=== PATIENT | male | born 1935 | race Caucasian/White ===

== ENCOUNTER → 2020-08-17 11:27 | Outpatient (BNVA) | payer MEDICARE, SELFPAY | PROVIDERS: PCP Internal Medicine; Referring Provider Internal Medicine; Visit Provider Surgery Vascular Surgery | DX: Z48.812 Encounter for surgical aftercare following surgery on the circulatory system (principal); Z98.62 Peripheral vascular angioplasty status | CPT/HCPCS: 99213 ==

== ENCOUNTER → 2020-08-28 10:02 | Outpatient (BNVA) | payer MEDICARE, SELFPAY | PROVIDERS: PCP Internal Medicine; Referring Provider Internal Medicine; Visit Provider Hospitalist | DX: J41.0 Simple chronic bronchitis (principal); F51.01 Primary insomnia; J96.11 Chronic respiratory failure with hypoxia; Z87.891 Personal history of nicotine dependence; Z79.82 Long term (current) use of aspirin; Z79.51 Long term (current) use of inhaled steroids | CPT/HCPCS: 99214 ==

== ENCOUNTER 2020-11-22 12:01 | Outpatient (REF) | payer MEDICARE, SELFPAY ==
--- NOTE | 2020-11-22 12:05 | US_ITS ---
EXAMINATION: NONINVASIVE ASSESSMENT OF THE ARTERIES OF BOTH LOWER EXTREMITIES INCLUDING PVR EXAM AND BILATERAL LOWER EXTREMITY DUPLEX CLINICAL INFORMATION: Peripheral vascular disease unspecified COMPARISON: Prior noninvasive assessment 07/18/2020 TECHNIQUE: Ankle pulse volume recordings, ankle pressure measurements and ankle brachial indices were obtained of the lower extremity arterial system bilaterally in addition to duplex Doppler techniques with wave form analysis and measurement of velocities in the common femoral, profunda femoral, superficial femoral, popliteal, tibial and peroneal arteries. The study was performed only at rest. FINDINGS: RIGHT LEG 1. Right Ankle-Brachial Index: 1.86 >0.97-1.25 = normal - no significant arterial disease 0.75-0.96 = mild peripheral arterial disease 0.5-0.74 = moderate peripheral arterial disease <0.50 = severe peripheral arterial disease <0.30 = critical arterial disease 2. Segmental Pressures (mmHg): Ankle: PT 205, DP 205 3. PVR Waveforms: Ankle: Somewhat dampened, loss of dicrotic notch, similar to prior. 4. Direct Duplex: Common femoral artery: 138 cm/s, triphasic Profunda femoris artery: 217 cm/s, triphasic Superficial femoral artery (proximal): 122 cm/s, biphasic Superficial femoral artery (mid): 133 cm/s, Multiphasic Superficial femoral artery (distal): 173 cm/s, monophasic Proximal Popliteal artery: 121 cm/s, monophasic Distal popliteal artery: 98.5 cm/s, monophasic Mid posterior tibial artery: 105 cm/s, monophasic Peroneal artery: 42.6 cm/s, monophasic LEFT LE. Left Ankle-Brachial Index: 1.05 (higher of the DP/PT) >0.97-1.25 = normal - no significant arterial disease 0.75-0.96 = mild peripheral arterial disease 0.5-0.74 = moderate peripheral arterial disease <0.50 = severe peripheral arterial disease <0.30 = critical arterial disease 2. Segmental Pressures: Ankle: PT 116, DP 91 3. PVR Waveforms: Ankle: Similar to prior there is loss of dicrotic notch. 4. Direct Duplex: Common femoral artery: 67 cm/s, monophasic with spectral broadening Profunda femoris artery: 34 cm/s, monophasic Superficial femoral artery (proximal): 194 cm/s, monophasic Superficial femoral artery (mid): 147 cm/s, monophasic Superficial femoral artery (distal): 104 cm/s, monophasic Proximal Popliteal artery: 93.2 cm/s, monophasic Distal popliteal artery: 69.1 cm/s, biphasic Mid posterior tibial artery: 30.2 cm/s, monophasic Peroneal artery: 57 cm/s, monophasic US/US arterial duplex LE BI IMPRESSION: Right ALINA 1.86, Left ALINA 1.05. These may be artificially elevated secondary to vessel wall calcification. PVRs are dampened bilaterally with loss of dicrotic notch. Multifocal areas of calcific disease are again seen bilaterally with loss of multiphasic flow on the right below the level of the distal superficial femoral artery and on the left essentially throughout the entirety of the leg. There is at least a moderate stenosis at the proximal superficial femoral artery given velocity shift
== END 2020-11-22 12:02 | disposition home or self-care (01) ==
LOC: HO.US 12:01
PROVIDERS: Visit Provider Surgery Vascular Surgery
DX: I73.9 Peripheral vascular disease, unspecified (principal)
CPT/HCPCS: 93923; 93925

== ENCOUNTER → 2020-12-28 11:04 | Outpatient (BNVA) | payer MEDICARE, SELFPAY | PROVIDERS: PCP Internal Medicine; Visit Provider Surgery Vascular Surgery | DX: I73.9 Peripheral vascular disease, unspecified (principal) | CPT/HCPCS: 99212 ==

== ENCOUNTER → 2021-03-08 15:19 | Outpatient (BNVA) | payer MEDICARE, SELFPAY | PROVIDERS: PCP Internal Medicine; Visit Provider Hospitalist | DX: J96.11 Chronic respiratory failure with hypoxia (principal); J41.0 Simple chronic bronchitis | CPT/HCPCS: 99212 ==

== ENCOUNTER 2021-06-11 12:42 | Outpatient (REF) | payer MEDICARE, SELFPAY ==
--- NOTE | ~2021-06-11 | US_ITS ---
EXAMINATION: COLOR-FLOW DUPLEX IMAGING OF THE BILATERAL LOWER EXTREMITY ARTERIAL SYSTEM. VELOCITY MEASUREMENTS THROUGHOUT THE FEMORAL ARTERIES WITH ANKLE-BRACHIAL PERIPHERAL ARTERIAL TESTING. CLINICAL INFORMATION: This is an 85-year-old male with a history of smoking, previous vascular surgery, peripheral vascular disease. Comparison: Comparison is made to a previous study dated 11/22/2020. TECHNIQUE: Ankle pulse volume recordings, ankle pressure measurements and ankle brachial indices were obtained of the lower extremity arterial system bilaterally in addition to duplex Doppler techniques with wave form analysis and measurement of velocities in the common femoral, profunda femoral, superficial femoral, popliteal, tibial and peroneal arteries. The study was performed only at rest. FINDINGS: RIGHT LEG 1. Right Ankle-Brachial Index: 1.31. Previously, 1.86 >0.97-1.25 = normal - no significant arterial disease 0.75-0.96 = mild peripheral arterial disease 0.5-0.74 = moderate peripheral arterial disease <0.50 = severe peripheral arterial disease <0.30 = critical arterial disease 2. Segmental Pressures (mmHg): Ankle: PT 205, DP 204 3. PVR Waveforms: Ankle: Somewhat dampened, loss of dicrotic notch, similar to prior. 4. Direct Duplex: Common femoral artery: 130 cm/s, biphasic. Previously, triphasic Profunda femoris artery: 106 cm/s, biphasic. Previously, triphasic Superficial femoral artery (proximal): 104 cm/s, biphasic. Unchanged Superficial femoral artery (mid): 127 cm/s, biphasic. Unchanged Superficial femoral artery (distal): 208 cm/s, biphasic. The patient may be developing a stenosis in the distal superficial femoral artery. Proximal Popliteal artery: 182 cm/s, triphasic Mid posterior tibial artery: 117 cm/s, biphasic LEFT LE. Left Ankle-Brachial Index: 0.96. Previously, 1.05 (higher of the DP/PT) >0.97-1.25 = normal - no significant arterial disease 0.75-0.96 = mild peripheral arterial disease 0.5-0.74 = moderate peripheral arterial disease <0.50 = severe peripheral arterial disease <0.30 = critical arterial disease 2. Segmental Pressures: Ankle: PT 150, DP 145 3. PVR Waveforms: Ankle: Similar to prior there is loss of dicrotic notch. 4. Direct Duplex: Common femoral artery: 168 cm/s, biphasic. Previously monophasic Profunda femoris artery: 173 cm/s, biphasic. Previously monophasic Superficial femoral artery (proximal): 109 cm/s, biphasic. Previously monophasic Superficial femoral artery (mid): 199 cm/s, biphasic. Previously monophasic Superficial femoral artery (distal): 82 cm/s, biphasic. Previously monophasic Proximal Popliteal artery: 110 cm/s, biphasic. Previously monophasic Mid posterior tibial artery: 82 cm/s, biphasic. Previously monophasic US/US arterial duplex LE BI IMPRESSION: 1. The ankle-brachial indices remain within the normal limits measuring 1.31 on the right and 0.96 the left. Previously, they measured Right ALINA 1.86, Left ALINA 1.05. These may be artificially elevated secondary to vessel wall calcification. 2. PVRs are dampened bilaterally with loss of dicrotic notch. 3. Multifocal areas of calcific disease are again seen bilaterally with loss of multiphasic flow on the both sides at the level of the distal superficial femoral artery.
--- NOTE | ~2021-06-11 | US_ITS ---
EXAMINATION: US RETROPERITONEAL LIMITED (AORTA) CLINICAL INFORMATION: Peripheral vascular disease. COMPARISON: None TECHNIQUE: Barros-scale, color Doppler and spectral Doppler evaluation of the abdominal aorta. FINDINGS: There is scattered atherosclerotic plaque without abdominal aortic aneurysm. The measurements of the aorta in maximum AP and transverse dimensions respectively are as follows: Proximal: 2.5 x 2.5 cm. Mid: 2.0 x 2.0 cm. Distal: 2.3 x 2.7 cm. PSV: 43.4 cm/sec The measurements of the common iliac arteries in maximum dimensions are as follows: Right: AP: 1.2 cm. TRV: 1.5 cm. Left: AP: 1.3 cm. TRV: 1.3 cm. US/US abdominal aortic aneurysm IMPRESSION: There is scattered atherosclerotic plaque without abdominal aortic aneurysm.
== END 2021-06-11 12:43 | disposition home or self-care (01) ==
LOC: HO.US 12:42
PROVIDERS: PCP Internal Medicine; Visit Provider Surgery Vascular Surgery
DX: I70.213 Atherosclerosis of native arteries of extremities with intermittent claudication, bilateral legs (principal)
CPT/HCPCS: 76706; 93923; 93925

== ENCOUNTER → 2021-06-26 10:45 | Outpatient (BNVA) | payer MEDICARE, SELFPAY | PROVIDERS: PCP Internal Medicine; Visit Provider Surgery Vascular Surgery | DX: I73.9 Peripheral vascular disease, unspecified (principal) | CPT/HCPCS: 99212 ==

== ENCOUNTER → 2021-09-07 15:36 | Outpatient (BNVA) | payer MEDICARE, OTHER, SELFPAY | PROVIDERS: PCP Internal Medicine; Visit Provider Hospitalist | DX: J96.11 Chronic respiratory failure with hypoxia (principal); J41.0 Simple chronic bronchitis | CPT/HCPCS: 99212 ==

== ENCOUNTER → 2022-12-06 13:49 | Outpatient (BNVA) | payer MEDICARE, SELFPAY | PROVIDERS: PCP Internal Medicine; Visit Provider Hospitalist | DX: J41.0 Simple chronic bronchitis (principal); J96.11 Chronic respiratory failure with hypoxia; Z79.899 Other long term (current) drug therapy | CPT/HCPCS: 99212 ==

== ENCOUNTER → 2023-01-30 15:24 | Outpatient (BNVA) | payer MEDICARE, SELFPAY | PROVIDERS: PCP Internal Medicine; Visit Provider Hospitalist | DX: J18.0 Bronchopneumonia, unspecified organism (principal); J96.11 Chronic respiratory failure with hypoxia; J44.1 Chronic obstructive pulmonary disease with (acute) exacerbation; G47.00 Insomnia, unspecified; Z87.891 Personal history of nicotine dependence; Z95.0 Presence of cardiac pacemaker; Z99.81 Dependence on supplemental oxygen; Z79.899 Other long term (current) drug therapy | CPT/HCPCS: 99212 ==

== ENCOUNTER 2023-02-11 09:00 | Outpatient (REF) | payer MEDICARE, SELFPAY ==
--- NOTE | ~2023-02-11 | XR_ITS ---
EXAMINATION: XR CHEST CLINICAL INFORMATION: Cough, bronchopneumonia COMPARISON: 05/26/2020 TECHNIQUE: 2 views of the chest were obtained. FINDINGS: Heart is normal in size. Status post aortic valve replacement. A left subclavian dual-lead pacemaker is in good position. No acute vascular congestion. Chronic linear areas of scarring and atelectasis seen in the right midlung field and left lung base. Calcified nodule is seen in the right lung apex. No focal airspace consolidations. XR/XR chest 2V IMPRESSION: Chronic fibrotic lung disease. No focal airspace consolidations
== END 2023-02-11 09:01 | disposition home or self-care (01) ==
LOC: HO.XRAY 09:00
PROVIDERS: PCP Internal Medicine; Visit Provider Hospitalist
DX: J96.11 Chronic respiratory failure with hypoxia (principal); J44.1 Chronic obstructive pulmonary disease with (acute) exacerbation; J18.0 Bronchopneumonia, unspecified organism
CPT/HCPCS: 71046; 99212

== ENCOUNTER 2023-05-20 13:49 | Outpatient (AMB) | payer MEDICARE, SELFPAY ==
[2023-05-20 13:55] VITALS: BP 140/64; PULSE 69; O2SAT 97; BMI 25.8
--- NOTE | 2023-05-20 13:55 | A.OFFVIS_ITS ---
Intake Vital Signs 05/20/23 13:55 Height 5 ft 7 in Weight 165 lb BMI 25.8 BP 140/64 H Blood Pressure Location Lt brachial Position Standing Pulse 69 Pulse Source Pulse Oximeter Pulse Oximetry (%) 97 Oxygen Delivery Method Room Air Intake Visit Reasons: COPD Intake Note: pt is here for follow up and states he feels okay today Allergies No Known Allergies Allergy (Verified 05/20/23 14:00) HPI HPI Comments History of Present Illness Details The patient is a 87-year-old gentleman known COPD in addition to pulmonary nodules. He did have a pacemaker placed in apparently has been doing well from the standpoint. He still has and chest discomfort due to that but ultimately was seen by Cardiology in feels like everything is going okay. He does complaint of progressive dyspnea on exertion. His daughter is with him and she is very concerned that his having more shortness of breath specially when going up a flight of stairs. He has been using the Breo in addition to the Spi elizabeth and does have a rescue inhaler. He did go for 6 minutes walk test and he did desaturate down to about 91/92%, but, not meeting criteria for oxygen supplementation. He does have some crackles on examination. Also to state that prior to this visit he was treated with prednisone and antibiotics for an ongoing lower respiratory infection. Currently he has completed the prednisone in the antibiotics. I did review the overnight oximetry demonstrating that he desaturated down to 75% and spent more than 40 minutes below 88%. Therefore, he needs to use the oxygen at nighttime. He has been tolerating it okay however he is having hard time sleeping. I will provide him with sleep aid at this time. He is also informed about nighttime recommendations by not eating too late, shutting off lights. In the meantime he has been using his nebulizer twice a day and continues uses respiratory therapy. No further wheezing on examination. 12/06/2022 the patient is here for a pulmonary follow-up visit. The patient continues to do relatively well. He is using his respiratory therapy with good effect. [facility] In addition to that the patient has been using the oxygen at nighttime. He does get some nasal irritation from the oxygen. He is going to try some saline gel to see if he can provide some relief. In addition to that he is noticing increasing drainage during the daytime. He does not have a history of glaucoma so therefore he can try as needed ipratropium nasal spray to try to dry some although secretions up. The patient does benefit from her oxygen therapy at nighttime so therefore will continue it at this time. She continues using the trazodone for sleep with good effect. Will follow-up in a year's time. 01/30/2023 the patient is here for sick visit. The patient started developing worsening cough. Chest congestion. Artemus some gargling in his left lung. Denies fevers or chills. The mucus is thick white. Denies any blood or any discoloration. Denies any needs any chest discomfort. Denies any fevers and denies any sick contacts. The patient is wondering because he has been sick now for the 2nd time in a short period time. Will go ahead and treat him for COPD exacerbation due to a respiratory illness. The patient definitely has some rhonchi and wheezing. Also will undergo a chest x-ray. If the patient continues to be symptomatic will go ahead and request a CT scan of the chest to further address for any postobstructive processes. Also we can assess the blood work. The patient will call if she is no better. Otherwise will follow-up in 3-4 months. 02/11/2023 the patient is here for sick visit. He continues to have a productive cough. He did undergo a chest x-ray demonstrating some minimal linear opacities in the area of the left lower lobe. He has some crackles in that area as well. He was placed on Vantin went up without doxycycline. Seems to be tolerating the therapy. Unfortunately after several days patient still coughing and having chest congestion. His daughter called the office about his persistent symptoms. Therefore, the patient came in for a visit. He did have a chest x-ray and I personally reviewed the x-ray and also compared to the x-ray that he had at [facility]. Appears that the linear opacities in the left lower lobe have improved which is reassuring. He still has some crackles in the left base. Therefore, due to the chest congestion and the partial response to antibiotics will give another course of antibiotics this time with Levaquin. He also will take Mucinex. I did recommend that he can take some probiotics to minimize GI adverse effects. If the patient is no better then at that point will request a CT scan of the chest to better apprecia te that area. 05/20/2023 the patient is here for a pulmonary follow-up visit. The patient completed 3rd course of antibiotics with Levaquin he has been feeling better. We did repairs his x-ray demonstrating interstitial changes no obvious pneumonia. The patient's cough is improved. Continues to have some shortness of breath with activity mild severity. Also, a cough intermittently. Otherwise he feels his baseline. He is using his respiratory therapy. The patient is without any other complaints. [facility] Medical History (Updated 05/21/23 @ 08:19 by Glynn Olson MD) Bronchopneumonia Chronic respiratory failure with hypoxia COPD (chronic obstructive pulmonary disease) Insomnia Surgical History External hemorrhoid Pacemaker S/P angiogram of extremity (~07/2020) Family History Father No problems noted. Mother No problems noted. Social History (Updated 09/07/21 @ 15:46 by ALEC Shah) Patient Tobacco Use Status: Former Tobacco user Tobacco use type: Cigarette Years Smoked: 20 years Review of Systems Const Denies fever(s) and Denies night sweats ENT Reports Normal hearing present, Denies change in voice, Denies lip swelling, Denies mouth pain, Reports nasal congestion, Reports nasal discharge and Denies tongue swelling Card Denies chest pain and Reports dyspnea on exertion Resp Denies chest congestion, Reports cough, Reports dyspnea on exertion and Denies wheezing GI Denies abdominal pain Musc Denies no additional complaints Neuro Reports Normal hearing present and Denies Neuro-related abnormal movements Psych Denies no additional complaints Sudheer/Lymph Denies easy bleeding and Denies lymphadenopathy Aller/Immun Denies lip swelling, Denies tongue swelling and Denies wheezing Physical Exam Vital Signs: Last Vital Signs Pulse 69 05/20/23 13:55 BP 140/64 H 05/20/23 13:55 Pulse Ox 97 05/20/23 13:55 Oxygen Delivery Method Room Air 05/20/23 13:55 BMI result Body Mass Index 25.8 Const General: alert Neck Neck: Yes normal visual inspection, Yes full ROM and Yes no lymphadenopathy Chest Chest palpation & inspection: normal inspection of the chest Resp Auscultation: no crackles, no rhonchi, no wheezes and diminished lung sounds Cardio Rate: regular rate Rhythm: regular rhythm Heart sounds: S1 normal heart sound present and S2 normal heart sound present GI Palpation (GI): Soft to palpation and nontender Auscultation: normal bowel sounds Skin General skin exam: rashes and/or lesions noted Neuro Cranial nerves: Yes Normal hearing present Assessment & Plan Assessment & Plan (1) Chronic respiratory failure with hypoxia: Code(s): J96.11 - Chronic respiratory failure with hypoxia (2) COPD (chronic obstructive pulmonary disease): Code(s): J44.9 - Chronic obstructive pulmonary disease, unspecified Qualifiers: COPD type: COPD with acute exacerbation Qualified Code(s): J44.1 - Chronic obstructive pulmonary disease with (acute) exacerbation (3) Bronchopneumonia: Comment: resolved Code(s): J18.0 - Bronchopneumonia, unspecified organism Plan Continue nocturnal oxygen. [facility] help with nasal irritation Ipratopium nasal spray as needed Continue Breo 100 Continue Spiriva Duoneb as needed Trazadone for sleep F/U in 6-8 months Coding Level of Care Code Est Pt Level 4 (69366) Diagnoses Chronic respiratory failure with hypoxia J96.11 COPD (chronic obstructive pulmonary disease) J44.1 COPD type: COPD with acute exacerbation Bronchopneumonia J18.0 Time Spent (min) 18
== END 2023-05-20 14:09 | disposition home or self-care (01) ==
PROVIDERS: PCP Internal Medicine; Visit Provider Hospitalist
DX: J96.11 Chronic respiratory failure with hypoxia (principal); J44.1 Chronic obstructive pulmonary disease with (acute) exacerbation; J18.0 Bronchopneumonia, unspecified organism
CPT/HCPCS: 99214

== ENCOUNTER → 2023-05-20 13:49 | Outpatient (BNVA) | payer MEDICARE, SELFPAY | PROVIDERS: Visit Provider Hospitalist | DX: J96.11 Chronic respiratory failure with hypoxia (principal); J44.1 Chronic obstructive pulmonary disease with (acute) exacerbation; J18.0 Bronchopneumonia, unspecified organism | CPT/HCPCS: 99212 ==

== ENCOUNTER 2024-04-09 10:48 | Outpatient (AMB) | payer MEDICARE, SELFPAY ==
[2024-04-09 10:53] VITALS: BP 134/68; PULSE 73; O2SAT 96; BMI 25.8
--- NOTE | 2024-04-09 10:53 | A.OFFVIS_ITS ---
Vital Signs 04/09/24 10:53 Height 5 ft 7 in Weight 165 lb BMI 25.8 BP 134/68 Blood Pressure Location Lt brachial Position Sitting Pulse 73 Pulse Source Pulse Oximeter Pulse Oximetry (%) 96 Oxygen Delivery Method Room Air Intake Visit Reasons: COPD Die Cutter Required: No Allergies No Known Allergies Allergy (Verified 04/09/24 10:56) HPI Comments Details: The patient is a 88-year-old gentleman known COPD in addition to pulmonary nodules. He did have a pacemaker placed in apparently has been doing well from the standpoint. He still has and chest discomfort due to that but ultimately was seen by Cardiology in feels like everything is going okay. He does complaint of progressive dyspnea on exertion. His daughter is with him and she is very concerned that his having more shortness of breath specially when going up a flight of stairs. He has been using the Breo in addition to the Spiriva and does have a rescue inhaler. He did go for 6 minutes walk test and he did desaturate down to about 91/92%, but, not meeting criteria for oxygen supplementation. He does have some crackles on examination. Also to state that prior to this visit he was treated with prednisone and antibiotics for an ongoing lower respiratory infection. Currently he has completed the prednisone in the antibiotics. I did review the overnight oximetry demonstrating that he desaturated down to 75% and spent more than 40 minutes below 88%. Therefore, he needs to use the oxygen at nighttime. He has been tolerating it okay however he is having hard time sleeping. I will provide him with sleep aid at this time. He is also informed about nighttime recommendations by not eating too late, shutting off lights. In the meantime he has been using his nebulizer twice a day and continues uses respiratory therapy. No further wheezing on examination. 12/06/2022 the patient is here for a pulmonary follow-up visit. The patient continues to do relatively well. He is using his respiratory therapy with good effect. [facility] In addition to that the patient has been using the oxygen at nighttime. He does get some nasal irritation from the oxygen. He is going to try some saline gel to see if he can provide some relief. In addition to that he is noticing increasing drainage during the daytime. He does not have a history of glaucoma so therefore he can try as needed ipratropium nasal spray to try to dry some although secretions up. The patient does benefit from her oxygen therapy at nighttime so therefore will continue it at this time. She continues using the trazodone for sleep with good effect. Will follow-up in a year's time. 01/30/2023 the patient is here for sick visit. The patient started developing worsening cough. Chest congestion. [place] some gargling in his left lung. Denies fevers or chills. The mucus is thick white. Denies any blood or any discoloration. Denies any needs any chest discomfort. Denies any fevers and denies any sick contacts. The patient is wondering because he has been sick now for the 2nd time in a short period time. Will go ahead and treat him for COPD exacerbation due to a respiratory illness. The patient definitely has some rhonchi and wheezing. Also will undergo a chest x-ray. If the patient continues to be symptomatic will go ahead and request a CT scan of the chest to further address for any postobstructive processes. Also we can assess the blood work. The patient will call if she is no better. Otherwise will follow-up in 3-4 months. 02/11/2023 the patient is here for sick visit. He continues to have a productive cough. He did undergo a chest x-ray demonstrating some minimal linear opacities in the area of the left lower lobe. He has some crackles in that area as well. He was placed on Vantin went up without doxycycline. Seems to be tolerating the therapy. Unfortunately after several days patient still coughing and having chest congestion. His daughter called the office about his persistent symptoms. Therefore, the patient came in for a visit. He did have a chest x-ray and I personally reviewed the x-ray and also compared to the x-ray that he had at [facility]. Appears that the linear opacities in the left lower lobe have improved which is reassuring. He still has some crackles in the left base. Therefore, due to the chest congestion and the partial response to antibiotics will give another course of antibiotics this time with Levaquin. He also will take Mucinex. I did recommend that he can take some probiotics to minimize GI adverse effects. If the patient is no better then at that point will request a CT scan of the chest to better appreciate that area. 05/20/2023 the patient is here for a pulmonary follow-up visit. The patient completed 3rd course of antibiotics with Levaquin he has been feeling better. We did repairs his x-ray demonstrating interstitial changes no obvious pneumonia. The patient's cough is improved. Continues to have some shortness of breath with activity mild severity. Also, a cough intermittently. Otherwise he feels his baseline. He is using his respiratory therapy. The patient is without any other complaints. 04/09/2024 the patient is here for a pulmonary follow-up visit. Overall the mckenzie vogt has been doing better from a respiratory status. Denies any worsening of the shortness of breath. He does complain of significant allergies. Significant sinus congestion and cough. Postnasal drip. Moderate severity. He did take some Benadryl some Mucinex with good response. Will go ahead 7 Zyrtec to the [place] and also been from intranasal corticosteroid therapy. He continues on his inhalers with good response and he also goes to the [place] for that. His last x-ray demonstrated new acute disease except for his chronic interstitial changes. Since the patient is doing well no additional testing is warranted. If symptoms worsen for some reason he can always call and we can address those symptoms and consider further imaging at that point. P is using the oxygen at nighttime. The oxygen therapy has been affecting beneficial. He can try some water-based lubricant for his knows to avoid too much irritation. [facility] Medical History (Updated 04/11/24 @ 21:23 by Glynn Olson MD) Chronic rhinitis Bronchopneumonia Chronic respiratory failure with hypoxia COPD (chronic obstructive pulmonary disease) Insomnia Surgical History S/P angiogram of extremity (~07/2020) External hemorrhoid Pacemaker Family History Father No problems noted. Mother No problems noted. Social History (Updated 09/07/21 @ 15:46 by ALEC Shah) Patient Tobacco Use Status: Former Tobacco user Tobacco use type: Cigarette Years Smoked: 20 years Review of Systems Const Denies fever(s) and Denies night sweats ENT Reports Normal hearing present, Denies change in voice, Denies lip swelling, Denies mouth pain, Reports nasal congestion, Reports nasal discharge and Denies tongue swelling Card Denies chest pain and Reports dyspnea on exertion Resp Denies chest congestion, Reports cough, Reports dyspnea on exertion and Denies wheezing GI Denies abdominal pain Musc Denies no additional complaints Neuro Reports Normal hearing present and Denies Neuro-related abnormal movements Psych Denies no additional complaints Sudheer/Lymph Denies easy bleeding and Denies lymphadenopathy Aller/Immun Denies lip swelling, Denies tongue swelling and Denies wheezing Physical Exam Vital Signs: Last Vital Signs Pulse 73 04/09/24 10:53 BP 134/68 04/09/24 10:53 Pulse Ox 96 04/09/24 10:53 Oxygen Delivery Method Room Air 04/09/24 10:53 BMI result Body Mass Index 25.8 Const General: alert Neck Neck: Yes normal visual inspection, Yes full ROM and Yes no lymphadenopathy Chest Chest palpation & inspection: normal inspection of the chest Resp Auscultation: no crackles, no rhonchi, no wheezes and diminished lung sounds Cardio Rate: regular rate Rhythm: regular rhythm Heart sounds: S1 normal heart sound present and S2 normal heart sound present GI Palpation (GI): Soft to palpation and nontender Auscultation: normal bowel sounds Skin General skin exam: rashes and/or lesions noted Neuro Cranial nerves: Yes Normal hearing present Assessment & Plan Assessment & Plan (1) Chronic respiratory failure with hypoxia: Code(s): J96.11 - Chronic respiratory failure with hypoxia Category: Medical (2) COPD (chronic obstructive pulmonary disease): Code(s): J44.9 - Chronic obstructive pulmonary disease, unspecified Category: Medical Qualifiers: COPD type: COPD with acute exacerbation Qualified Code(s): J44.1 - Chronic obstructive pulmonary disease with (acute) exacerbation (3) Chronic rhinitis: Code(s): J31.0 - Chronic rhinitis Category: Medical Plan Continue nocturnal oxygen. The [place] providing saline gel to help with nasal irritation Ipratopium nasal spray as needed Continue Breo 100 Continue Spiriva Duoneb as needed Trazadone for sleep start Zyrtec start Fluticasone nasal spray F/U in 8-12 months Medications: New cetirizine (Zyrtec) 10 mg PO DAILY 30 tabs 11RF 30 days fluticasone propionate 50 mcg/actuation 2 sprays intranasal DAILY 15.8 mL 11RF 30 days J31.0 - Chronic rhinitis Coding Level of Care Code Est Pt Level 4 (94039) Diagnoses Chronic respiratory failure with hypoxia J96.11 Chronic obstructive pulmonary disease with acute exacerbation J44.1 COPD type: COPD with acute exacerbation Chronic rhinitis J31.0 Time Spent (min) 16
== END 2024-04-09 11:47 | disposition home or self-care (01) ==
PROVIDERS: PCP Internal Medicine; Visit Provider Hospitalist
DX: J96.11 Chronic respiratory failure with hypoxia (principal); J44.1 Chronic obstructive pulmonary disease with (acute) exacerbation; J31.0 Chronic rhinitis
CPT/HCPCS: 99214

== ENCOUNTER → 2024-04-09 10:48 | Outpatient (BNVA) | payer MEDICARE, SELFPAY | PROVIDERS: PCP Internal Medicine; Visit Provider Hospitalist | DX: J96.11 Chronic respiratory failure with hypoxia (principal); J44.1 Chronic obstructive pulmonary disease with (acute) exacerbation; J31.0 Chronic rhinitis | CPT/HCPCS: 99212 ==

== ENCOUNTER 2025-01-19 08:39 | Outpatient (AMB) | payer MEDICARE, SELFPAY ==
[2025-01-19 08:41] VITALS: BP 124/68; PULSE 62; O2SAT 96; BMI 27.4
--- NOTE | 2025-01-19 08:41 | MHC.OFFVIS ---
Vital Signs 01/19/25 08:41 Height 5 ft 7 in Weight 175 lb 4.28 oz BMI 27.4 BP 124/68 Blood Pressure Location Lt brachial Position Sitting Pulse 62 Pulse Source Pulse Oximeter Pulse Oximetry (%) 96 Oxygen Delivery Method Room Air Intake Visit Reasons: COPD Allergies No Known Allergies Allergy (Verified 01/19/25 08:45) HPI Comments Details: The patient is a 89-year-old gentleman known COPD in addition to pulmonary nodules. He did have a pacemaker placed in apparently has been doing well from the standpoint. He still has and chest discomfort due to that but ultimately was seen by Cardiology in feels like everything is going okay. He does complaint of progressive dyspnea on exertion. His daughter is with him and she is very concerned that his having more shortness of breath specially when going up a flight of stairs. He has been using the Breo in addition to the Spiriva and does have a rescue inhaler. He did go for 6 minutes walk test and he did desaturate down to about 91/92%, but, not meeting criteria for oxygen supplementation. He does have some crackles on examination. Also to state that prior to this visit he was treated with prednisone and antibiotics for an ongoing lower respiratory infection. Currently he has completed the prednisone in the antibiotics. I did review the overnight oximetry demonstrating that he desaturated down to 75% and spent more than 40 minutes below 88%. Therefore, he needs to use the oxygen at nighttime. He has been tolerating it okay however he is having hard time sleeping. I will provide him with sleep aid at this time. He is also informed about nighttime recommendations by not eating too late, shutting off lights. In the meantime he has been using his nebulizer twice a day and continues uses respiratory therapy. No further wheezing on examination. 12/06/2022 the patient is here for a pulmonary follow-up visit. The patient continues to do relatively well. He is using his respiratory therapy with good effect. [facility] In addition to that the patient has been using the oxygen at nighttime. He does get some nasal irritation from the oxygen. He is going to try some saline gel to see if he can provide some relief. In addition to that he is noticing increasing drainage during the daytime. He does not have a history of glaucoma so therefore he can try as needed ipratropium nasal spray to try to dry some although secretions up. The patient does benefit from her oxygen therapy at nighttime so therefore will continue it at this time. She continues using the trazodone for sleep with good effect. Will follow-up in a year's time. 01/30/2023 the patient is here for sick visit. The patient started developing worsening cough. Chest congestion. [place] some gargling in his left lung. Denies fevers or chills. The mucus is thick white. Denies any blood or any discoloration. Denies any needs any chest discomfort. Denies any fevers and denies any sick contacts. The patient is wondering because he has been sick now for the 2nd time in a short period time. Will go ahead and treat him for COPD exacerbation due to a respiratory illness. The patient definitely has some rhonchi and wheezing. Also will undergo a chest x-ray. If the patient continues to be symptomatic will go ahead and request a CT scan of the chest to further address for any postobstructive processes. Also we can assess the blood work. The patient will call if she is no better. Otherwise will follow-up in 3-4 months. 02/11/2023 the patient is here for sick visit. He continues to have a productive cough. He did undergo a chest x-ray demonstrating some minimal linear opacities in the area of the left lower lobe. He has some crackles in that area as well. He was placed on Vantin went up without doxycycline. Seems to be tolerating the therapy. Unfortunately after several days patient still coughing and having chest congestion. His daughter called the office about his persistent symptoms. Therefore, the patient came in for a visit. He did have a chest x-ray and I personally reviewed the x-ray and also compared to the x-ray that he had at [facility]. Appears that the linear opacities in the left lower lobe have improved which is reassuring. He still has some crackles in the left base. Therefore, due to the chest congestion and the partial response to antibiotics will give another course of antibiotics this time with Levaquin. He also will take Mucinex. I did recommend that he can take some probiotics to minimize GI adverse effects. If the patient is no better then at that point will request a CT scan of the chest to better appreciate that area. 05/20/2023 the patient is here for a pulmonary follow-up visit. The patient completed 3rd course of antibiotics with Levaquin he has been feeling better. We did repairs his x-ray demonstrating interstitial changes no obvious pneumonia. The patient's cough is improved. Continues to have some shortness of breath with activity mild severity. Also, a cough intermittently. Otherwise he feels his baseline. He is using his respiratory therapy. The patient is without any other complaints. 04/09/2024 the patient is here for a pulmonary follow-up visit. Overall the patient has been doing better from a respiratory status. Denies any worsening of the shortness of breath. He does complain of significant allergies. Significant sinus congestion and cough. Postnasal drip. Moderate severity. He did take some Benadryl some Mucinex with good response. Will go ahead 7 Zyrtec to the [place] and also been from intranasal corticosteroid therapy. He continues on his inhalers with good response and [facility] His last x-ray demonstrated new acute disease except for his chronic interstitial changes. Since the patient is doing well no additional testing is warranted. If symptoms worsen for some reason he can always call and we can address those symptoms and consider further imaging at that point. P is using the oxygen at nighttime. The oxygen therapy has been affecting beneficial. He can try some water-based lubricant for his knows to avoid too much irritation. 01/19/2025 the patient is here for pulmonary follow-up visit. Overall the patient is doing about the same. 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 The ipratropium nasal spray has been affected but he does not use it regularly. I did request to see if he can try once or twice a day regularly to see if this prevents and preemptively treat his vasomotor issues. Patient does have a cough and choking at times. Explained to him that is likely the same as he does have significant cobblestoning in postnasal drippage appreciated on his exam. From respiratory status he continues to do well on the Breo and also the Spiriva. [facility] I will make sure to send a script to the [facility] to make sure that he has refills and he does not run out. He does use the oxygen at nighttime. This has been affecting beneficial. He is looking to travel to the [facility] soon. He will be with his daughter and at that time though rent a concentrator that they can use at nighttime. The patient does have a history of interstitial lung disease. His respiratory exam is diminished. Will request a chest x-ray to follow-up with those findings. [facility] Medical History (Updated 04/11/24 @ 21:23 by Glynn Olson MD) Chronic rhinitis Bronchopneumonia Chronic respiratory failure with hypoxia COPD (chronic obstructive pulmonary disease) Insomnia Surgical History S/P angiogram of extremity (~07/2020) External hemorrhoid Pacemaker Family History Father No problems noted. Mother No problems noted. Social History Patient Tobacco Use Status: Former Tobacco user Tobacco use type: Cigarette Years Smoked: 20 years Review of Systems Const Denies fever(s) and Denies night sweats ENT Reports Normal hearing present, Denies change in voice, Denies lip swelling, Denies mouth pain, Reports nasal congestion, Reports nasal discharge and Denies tongue swelling Card Denies chest pain and Reports dyspnea on exertion Resp Denies chest congestion, Reports cough, Reports dyspnea on exertion and Denies wheezing GI Denies abdominal pain Musc Denies no additional complaints Neuro Reports Normal hearing present and Denies Neuro-related abnormal movements Psych Denies no additional complaints Sudheer/Lymph Denies easy bleeding and Denies lymphadenopathy Aller/Immun Denies lip swelling, Denies tongue swelling and Denies wheezing Physical Exam Vital Signs: Last Vital Signs Pulse 62 01/19/25 08:41 BP 124/68 01/19/25 08:41 Pulse Ox 96 01/19/25 08:41 Oxygen Delivery Method Room Air 01/19/25 08:41 BMI result Body Mass Index 27.4 Const General: alert Neck Neck: Yes normal visual inspection, Yes full ROM and Yes no lymphadenopathy Chest Chest palpation & inspection: normal inspection of the chest Resp Auscultation: no crackles, no rhonchi, no wheezes and diminished lung sounds Cardio Rate: regular rate Rhythm: regular rhythm Heart sounds: S1 normal heart sound present and S2 normal heart sound present GI Palpation (GI): Soft to palpation and nontender Auscultation: normal bowel sounds Skin General skin exam: rashes and/or lesions noted Neuro Cranial nerves: Yes Normal hearing present Assessment & Plan Assessment & Plan (1) Chronic respiratory failure with hypoxia: Code(s): J96.11 - Chronic respiratory failure with hypoxia Category: Medical (2) COPD (chronic obstructive pulmonary disease): Code(s): J44.9 - Chronic obstructive pulmonary disease, unspecified Category: Medical Qualifiers: COPD type: COPD with acute exacerbation Qualified Code(s): J44.1 - Chronic obstructive pulmonary disease with (acute) exacerbation (3) Chronic rhinitis: Code(s): J31.0 - Chronic rhinitis Category: Medical Plan Continue nocturnal oxygen. [facility] to help with nasal irritation Ipratopium nasal spray 1-2 times a day Continue Breo 100 Continue Spiriva Duoneb as needed Trazadone for sleep Zyrtec Fluticasone nasal spray oxygen supplementation 2L/min at night CXR F/U in 6-8 months Orders: Orders XR chest 2V Today J44.1 - Chronic obstructive pulmonary disease with (acute) exacerbation Medications: Changed From fluticasone furoate-vilanterol 100-25 mcg/dose 1 ea PO DAILY 60 ea 3RF To fluticasone furoate-vilanterol 100-25 mcg/dose 1 ea inhalation DAILY 60 ea 3RF Coding Level of Care Code Est Pt Level 4 (49787) Complex EM visit Add On G2211 Diagnoses Chronic respiratory failure with hypoxia J96.11 Chronic obstructive pulmonary disease with acute exacerbation J44.1 COPD type: COPD with acute exacerbation Chronic rhinitis J31.0 Time Spent (min) 17
--- OUTSIDE RECORDS SUMMARY | 2025-01-19 09:30 | XMS_ITS | Encounter Summary ---
Author Organization [facility] Address [address] [place] [address] Care Team Providers Care Counter Professional Name Role Phone Cherri Wise MD Primary Care Provider [phone] Reason for Visit * Reason Onset Date Comments [place]: Call back 11/29/2024 Encounter Details Date Type Department Care Team ([facility] st Contact Info) Description 11/29/2024 Telephone Internal Medicine - [place] [address] [facility] [address] [facility] [address] [place] [address] Cherri Wise MD [address] [place] [address] [place]: Call back Social History Tobacco Use Types Packs/Day Years Used Date Smoking Tobacco: Former Cigarettes 2 42 0 [birth year]09/1946 - 11/09/1988 Smokeless Tobacco: Never Alcohol Use Standard Drinks/Week Comments No 0 (1 standard drink = 0.6 oz pur e alcohol) Sex and Gender Information Value Date Recorded Sex Assigned at Not on file Legal Sex Male 10:00 PM EST Gender Identity Not on file Sexual Orientation Not on file documented as of this encounter Progress Notes * Nataly Lawson - 11/29/2024 8:56 AM EST Patient daughter called and stated that she got a missed call from out office and to call back but she does not know who called but she believes we called due to the patients medication. Please advise Cb# [phone] documented in this encounter Plan of Treatment Upcoming Encounters Date Type Department Care Team (Late st Contact Info) Description 02/01/2025 11:00 AM EDT Ancillary Procedure [facility] Cardiology [facility] [address] [place] [address] 05/19/2025 8:30 AM EDT Office Visit Internal Medicine - [place] [address] [place] [address] Cherri Wise MD [address] [facility] [address] [place] [address] 10/05/2025 9:30 AM EST Ancillary Procedure [facility] [address] [facility] [address] [place] [address] documented as of this encounter Visit Diagnoses Not on filedocumented in this encounter Care Teams Counter Professional Relationship Specialty Start Date End Date Cherri Wise MD [address] [facility] [address] [place] [address] PCP - General Internal Medicine 11/26/24 documented as of this encounter
--- OUTSIDE RECORDS SUMMARY | 2025-01-19 09:30 | XMS_ITS | Encounter Summary ---
Author Name [facility] [facility] [place] [facility] [place] Address [address] [place] [id number] Care Team Providers Care Enamel Pulverizer Name Role Phone EMMA MARIEA Primary Care Provider Unavailabl e Insurance Providers: All historical and current Section Date Range: From patient's date of to the date document was created. This section includes the names of all active insurance providers for the patient. Insurance Provider Type of Coverage Plan Name Start of Policy Coverage End of Policy Coverage Group Number Member ID Insurance Provider's Telephone Number Policy Diamond's Name Patient's Relationship to Policy Diamond [facility] (WNR) MEDICARE ADVANTAGE [facility] (WNR) [address] [facility] [id number] PATIENT Selected Encounter This section includes the information on record at [place] for the Encounter. Date/Time Encounter Type Encounter Description Reason Pro vider Source Jan 12, 2025 10:39 AM Outpatient Encounter ADMIN PAT ACTIVTIES (MASNONCT) IHE Encounter Template Text not used by [place] Plan of Treatment: Future Appointments (+ 6 months) and Future Tests (+/- 45 days) The Plan of Treatment section includes future care activities for the patient from all [place] treatmentfacilities. This section includes future appointments and future orders which are active, pending or scheduled. Future Appointments This section includes appointments that were scheduled to occur 6 months from the date of the Encounter, up to a maximum of 20 appointments. The data comes from all [place] treatment facilities. Appointment Date/Time Appointment Type Appointme nt Facility Name Jan 19, 2025 11:30 AM [place] [facility] [place] [facility] Feb 15, 2025 01:00 PM AMBULATORY - PSYCHIATRY [facility] Jun 01, 2025 10:00 AM [facility] Jun 01, 2025 10:30 AM [facility] Advance Directives: All historical and current Section Date Range: From patient's date of to the date document was created. This section includes ALL of a patient's completed or amended [place] Advance and Rescinded Directives. The entries below indicate that a directive exists for the patient, but an actual copy is not included with this document. The data comes from all [place] facilities. Date Advance Directives Provider Source Jan 26, 2018 ADVANCE DIRECTIVE TAI CURTIS [facility] Encounter Notes: All associated encounter notes This section contains the clinical notes associated to the Encounter. Date/Time Encounter Note(s) Provider Source Jan 12, 2025 10:39 AM PHARMACY NOTE: LOCAL TITLE: V1 PHARMACY CUSTOMER CARE MEDICATION RENEWAL STANDARD TITLE: PHARMACY NOTE DATE OF NOTE: JAN 12, 2025@10:39 ENTRY DATE: JAN 12, 2025@10:40:01 AUTHOR: EVERARDO TELLES EXP COSIGNER: URGENCY: STATUS: COMPLETED V1 PHARMACY CUSTOMER CARE MEDICATION RENEWAL Has ADDENDA Date: Jan Division: [place] Pt referred by Pharmacy Call Center for medication renewal: Non-controlled/maintenanc e medication Medications requested: [id number]$ FLUTIC 100/VILANTEROL 25MCG 30D ORAL INH Patient is out of medication and would appreciate expedited delivery if available. Please contact the outpatient pharmacy for assistance with shipment Defer to primary care provider To be mailed . Please review and renew if appropriate. *This note was generated by [facility] [facility] Customer Care. If you have any questions or need assistance, do not contact this author. Please refer all questions to your local, on-site pharmacy departments. /adrcie/ EVERARDO TELLES CPhT CLINICAL EDUCATION CONSULTANT, [place]/PHARMACY CUSTOMER CARE Signed: 01/12/2025 10:40 Receipt Acknowledged By: 01/12/2025 11:09 /darcie/ BRENDA BERGER RN REGISTERED NURSE 01/12/2025 21:27 /darcie/ DEVAN MARIE MD Primary Care Physician 01/12/2025 ADDENDUM STATUS: COMPLETED Spoke with Dr. Olson's office and they stated that the script was faxed on 01/06/25 when initially requested and then again on 01/10/25. Fax number given to the clinic and they will fax again. /darcie/ BRENDA BERGER RN REGISTERED NURSE Signed: 01/12/2025 11:10 01/13/2025 ADDENDUM STATUS: COMPLETED Left a VM stating that the medication was ordered for pick-up and that expedited shipping is no longer available per pharmacy. /darcie/ BRENDA BERGER RN REGISTERED NURSE Signed: 01/13/2025 11:01 [facility] TELLES [facility]
--- OUTSIDE RECORDS SUMMARY | 2025-01-19 09:30 | XMS_ITS | Encounter Summary ---
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) Pacemaker Status post transcatheter aortic valve replacement Dizziness Procedures Transthoracic echocardiogram (TTE) complete with PRN contrast, bubble, strain, and 3D order panel NC TTE W 2D IMAGE COMPLETE W DOPPLER ECHO & COLOR FLOW DOPPLER ECHO NC DMITRY 2D COMPLETE W/CONTRAST OR W & WO CONTRAST WITH DOPPLER Gail Haro NP [address] [place] [address] Phone: tel: fax: [facility] Referral ID Status Reason Start Date Expiration Date V isits Requested Visits Authorized [id number] Authorized 12/19/2024 12/19/2025 1 1 Reason for Visit * Reason Comments Follow-up Triage * Consultation (Routine) - Authorized Specialty Diagnoses / Procedures Referred By Sina nevarez Referred To Contact Cardiology Diagnoses Aortic atherosclerosis (CMS/HCC) Cherri Wise MD [address] [place] [address] Phone: tel: fax: [facility] Cardiology [facility] - [address] [place] [address] Phone: tel: fax: Referral ID Status Reason Start Date Expiration Date Visits Requested Visits Authorized [id number] Authorized Specialty Services Required 12/01/2024 12/01/2025 12 12 Encounter Details Date Type Department Care Team (Late st Contact Info) Description 12/17/2024 11:10 AM EST Office Visit [facility] Cardiology [facility] - [address] [place] [address] Gail Haro NP [address] [place] [address] Primary hypertension (Primary Dx); Coronary artery disease involving chickahominy indians-eastern division coronary artery of chickahominy indians-eastern division heart without angina pectoris; 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); Aortic atherosclerosis (CMS/HCC); Mixed hyperlipidemia; Complete heart block (CMS/HCC); Pacemaker; Status post transcatheter aortic valve replacement; Dizziness Social History Tobacco Use Types Packs/Day Years [...] on file documented as of this encounter Last Filed Vital Signs Vital Sign Reading Time Taken Comments Blood Pressure 110/56 12/17/2024 11:09 AM EST Pulse - - Temperature - - Respiratory Rate - - Oxygen Saturation 98% 12/17/2024 11:09 AM EST Inhaled Oxygen Concentration - - Weight 77.1 kg (170 lb) 12/17/2024 11:09 AM EST Height - - Body Mass Index 26.63 07/21/2024 1:42 PM EDT documented in this encounter Ordered Prescriptions Prescription Sig Dispense Quantity Refills Last Filled Start Date End Date carvediloL (COREG) 3.125 mg tablet Take 1 tablet (3.125 mg total) by mouth 2 (two) times a day with meals. 12/19/2024 06/17/2025 documented in this encounter Progress Notes * Gail Haro NP - 12/17/2024 11:10 AM ESTAssociated Problem(s): Aortic atherosclerosis ([facility]) Orders: Ambulatory referral to Cardiology * Gail Haro NP - 12/17/2024 11:10 AM ESTAssociated Problem(s): Hypertension Previously hypertensive on multiple antihypertensive agents, now having apparent symptomatic hypotension; he is currently on a reduced dose of losartan as directed by his PCP due to continued apparent symptomatic hypotension, and amlodipine and furosemide were previously stopped. He continues to have vague complaints of lightheadedness that have improved since recovering from COVID and with decreased antihypertensive medications, but which do to appear to persist. We discussed the risks and benefits of discontinuing carvedilol versus losartan; ultimately through shared decision making, we have decided to discontinue losartan 25 mg daily and continue with carvedilol 3.125 mg twice daily for b enefit of both his coronary artery disease as well as heart failure. They will continue to monitor heart rate and blood pressure at home approximately 1 to 2 hours after morning medications, relayingthese readings to us at a blood pressure check with nursing in approximately 2 weeks at which time we will continue to readdress this. They will call sooner for any worsening or persistent symptoms despite these medication changes. It is possible that his COVID diagnosis was unknowingly contributing to hypotension due to inadequate hydration and that his dizziness may have been related to fallingill with COVID or not sleeping well as he describes today. Nevertheless, at 89 years old, we want to decrease the risk of falls as much as possible. We will continue to readdress this as indicated. Orders: ECG 12 lead * Gail Haro NP - 12/17/2024 11:10 AM ESTAssociated Problem(s): Coronary artery disease involving chickahominy indians-eastern division coronary artery of chickahominy indians-eastern division heart with out angina pectoris The patient offers no symptoms concerning for underlying ischemia within his current functional capacity. We will continue with carvedilol, isosorbide, atorvastatin, and daily clopidogrel; aspirin was previously discontinued as discussed with Dr. Tineo in November 2024. The patient was advised to seek emergent medical attention by calling 911 if they were to develop severe dyspnea, chest pain that did not resolve with rest or nitroglycerin, or if they were to faint. Orders: ECG 12 lead * Gail Haro NP - 12/17/2024 11:10 AM ESTAssociated Problem(s): Congestive heart failure (CHF) ([facility]) As above, the patient offers no symptoms concerning for overt heart failure. He appears euvolemic on exam today. We will continue with carvedilol; as above we are discontinuing losartan today due to symptomatic hypotension. He will continue with furosemide as needed; however, I have cautioned them to use this carefully due to his dizziness as it may aggravate this further. His daughter states that they will call the office to discuss this further if they feel using it may be necessary. We discussed risk reduction through lifestyle modifications including healthy diet, routine exercise, and weight management. We reviewed heart failure management including low-sodium diet, symptom surveillance, daily weights and medication compliance. I've asked the patient to call if they develop worseningsymptoms of heart failure such as increased shortness of breath, new or worsening cough, increased swelling in the legs or ankles, or weight gain of more than 2 pounds in one day or 4 pounds in one week. Orders: Transthoracic echocardiogram (TTE) complete with PRN contrast, bubble, strain, and 3D order panel; Future * Gail Haro NP - 12/17/2024 11:10 AM ESTAssociated Problem(s): Mixed hyperlipidemia LDL goal for this patient was a history of coronary artery disease is less than 70; his most recentlipid panel was completed in 12/2023 revealing an LDL of 81. In light of his advanced age, continue atorvastatin 20 mg daily. * Gail Haro NP - 12/17/2024 11:10 AM ESTAssociated Problem(s): Complete heart block (CMS/HCC) Now status post pacemaker implantation; continue with remote and Orders: ECG 12 lead * Gail Haro NP - 12/17/2024 11:10 AM ESTAssociated Problem(s): Pacemaker Orders: ECG 12 lead Transthoracic echocardiogram (TTE) complete with PRN contrast, bubble, strain, and 3D order panel; Future * Gail Haro NP - 12/17/2024 11:10 AM ESTAssociated Problem(s): Status post transcatheter aortic valve replacement Most recent echocardiogram completed 07/2023 showing a bioprosthetic aortic valve that was well-seated and functioning normally. The patient offers no concerning symptoms and there is no significant murmur noted on exam today to suggest otherwise. We will be obtaining an echocardiogram Orders: Transthoracic echocardiogram (TTE) complete with PRN contrast, bubble, strain, and 3D order panel; Future * Gail Haro NP - 12/17/2024 11:10 AM EST Images from the original note were not included. [facility] PRIMARY [employer] PRODUCT CONSULTANT: Alfonso Tineo MD PCP: Cherri Wise MD HPI: Costa Copeland is a 89 y.o. old male with last medical history significant for diffuse moderate coronary artery disease, cardiomyopathy/HFimpEF (EF previously as low as 30%), aortic stenosis status post TAVR in June 2022, intermittent second-degree AV block status post dual-chamber pacemaker, h ypertension, hyperlipidemia, COPD, insomnia, depression/anxiety, and GERD. Echocardiogram completed in July 2022 (1 month after TAVR) revealed normal left ventricular size, wall thickness, and regional wall motion, LVEF of 34% by Sahni's biplane. #26 Nunez bioprosthetic aortic valve was well-seated and functioning normally without insufficiency. Repeat echocardiogram from July 2023 showed a normal left ventricular chamber size, moderate concentric LVH, and normal regional wall motion with mildly reduced left ventricular systolic function, EF 45 to 50%. Moderately dilated left atrium, normal right atrium. Normal RV size and function. Pacer wire seen in the right heart. Bioprosthetic aortic valve was well-seated and functioning normally, no insufficiency. No other significant valvular dysfunction. In November 2024, given his history of coronary artery disease in addition to history of TAVR, aspirin was discontinued and he was continued on Plavix alone after >6 months of DAPT status post TAVR. His most recent device check was completed on 12/11/2024 which showed normal device function with no alerts or events, atrial paced 38%, ventricular paced 97%; AT/AF burden 0%. The patient was taken off amlodipine on 11/26/2024 by his PCP due to symptomatic hypotension (dizziness); he was seen in their office for follow-up on 12/02/2024 at which point his losartan was decreased from 50 mg daily to 25 mg daily due to continued symptomatic hypotension. The patient presents today for triage visit regarding hypotension and recent medication changes; heis accompanied by his daughter, Alma. They report that they followed up with his PCP yesterday whojoseo wanted him to stop carvedilol as he has continued to have systolic readings in the low 90s at home. They also note that he unknowingly had COVID approximately 2 weeks ago when his hypotension initially became problematic; they know he was likely not hydrating well and wonder if the COVID couldhave actually been contributing to his symptoms which appeared to be related to hypotension at the time. They report that he previously stopped his carvedilol by accident (miscommunication between them and PCP) and his blood pressure became elevated significantly as high as 150s over 90s. They are hesitant to stop carvedilol as directed by the PCP. He is staying better hydrated now and initially stated that he has been feeling better with very little dizziness; however, he does report feeling a little lightheaded today but feels as though it was related to not sleeping well last night. On further conversation, this lightheadedness appears to be persisting little more so than the patient was initially willing to admit; he is a bit vague in describing it and his daughter admits she feels he doesnot want her to worry so has been less up front about it. He denies any syncope or presyncope, no falls at home. He remains active around the house and denies any exertional symptoms; no chest pain or pressure at rest or with exertion and no shortness of breath at rest or with exertion. No palpitations, peripheral edema or abdominal distention, orthopnea or PND. ACTIVE MEDICATIONS: Current Outpatient Medications Medication Instructions albuterol HFA (PROAIR HFA ; PROVENTIL HFA ; VENTOLIN HFA) 90 mcg/actuation inhaler Inhale 2 Puffs into the lungs every 4 hours as needed. atorvastatin (LIPITOR) 20 mg, oral, Daily carvediloL (COREG) 3.125 mg, oral, 2 times daily with meals clopidogreL (PLAVIX) 75 mg tablet TAKE 1 TABLET BY MOUTH DAILY fluticasone furoate-vilanteroL (BREO ELLIPTA) 100-25 mcg/dose inhaler furosemide (LASIX) 20 mg, oral, Daily PRN gabapentin (NEURONTIN) 300 mg capsule TAKE 1 CAPSULE BY MOUTH THREE TIMES DAILY ipratropium-albuteroL (DUONEB) 0.5-2.5 mg/3 mL nebulizer solution as needed. isosorbide mononitrate (IMDUR) 30 mg 24 hr tablet TAKE 1 TABLET BY MOUTH DAILY miscellaneous medical supply mis Oxygen Historical (HISTORICAL OXYGEN) Inhale 2 L into the lungs. night nitroglycerin (NITROSTAT) 0.[address] 1 Tablet under the tongue every 5 minutes as needed for Chest pain. omeprazole (PRILOSEC) 20 mg, oral, Daily, Do not crush or chew. tiotropium (Spiriva Respimat) 2.5 mcg/actuation inhalation spray INHALE 2 PUFFS BY MOUTH ONCE DAILY traZODone (DESYREL) 50 mg tablet 2 Tablets at bedtime. PAST MEDICAL HISTORY: Patient Active Problem List Diagnosis Anemia Aortic atherosclerosis (CMS/HCC) Cardiac murmur Chest pain Chronic low back pain Chronic obstructive pulmonary disease (CMS/HCC) Complete heart block (CMS/HCC) Congestive heart failure (CHF) (CMS/HCC) Coronary artery disease involving chickahominy indians-eastern division coronary artery of chickahominy indians-eastern division heart without angina pectoris Diverticulosis Dyspnea Fatty liver Gout Hypertension Mixed hyperlipidemia Pacemaker Phimosis Pulmonary nodules Fatigue Unilateral weakness Status post transcatheter aortic valve replacement ALLERGIES: No Known Allergies SOCIAL HISTORY: Social History Tobacco Use Smoking status: Former Current packs/day: 0.00 Average packs/day: 2.0 packs/day for 42.0 years (84.0 ttl pk-yrs) Types: Cigarettes Start date: 11/09/1946 Quit date: 11/09/1988 Years since quittin.1 Smokeless tobacco: Never Substance Use Topics Alcohol use: No PHYSICAL EXAM: Vitals: 12/17/24 1109 BP: 110/56 SpO2: 98% Weight: 77.1 kg (170 lb) Body mass index is 26.63 kg/m??. Physical Exam Vitals reviewed. Constitutional: General: He is not in acute distress. Appearance: Normal appearance. He is not ill-appearing. Comments: [place] HENT: Head: Normocephalic and atraumatic. Mouth/Throat: Mouth: Mucous membranes are moist. Eyes: General: No scleral icterus. Extraocular Movements: Extraocular movements intact. Pupils: Pupils are equal, round, and reactive to light. Neck: Vascular: Normal carotid pulses. No carotid bruit, hepatojugular reflux or JVD. Cardiovascular: Rate and Rhythm: Normal rate and regular rhythm. Pulses: Normal pulses. Heart sounds: Normal heart sounds. No murmur heard. No friction rub. No gallop. Pulmonary: Effort: Pulmonary effort is normal. No respiratory distress. Breath sounds: Normal breath sounds. No wheezing, rhonchi or rales. Abdominal: General: There is no distension. Palpations: Abdomen is soft. Tenderness: There is no abdominal tenderness. Musculoskeletal: General: No swelling. Cervical back: Neck supple. Right lower leg: No edema. Left lower leg: No edema. Skin: General: Skin is warm and dry. Neurological: General: No focal deficit present. Mental Status: He is alert and oriented to person, place, and time. Cranial Nerves: No cranial nerve deficit. Gait: Gait normal. Psychiatric: Attention and Perception: Attention normal. Mood and Affect: Mood and affect normal. Behavior: Behavior normal. Thought Content: Thought content normal. EKG: Encounter Date: 12/17/24 ECG 12 lead Result Value Ventricular Rate ECG 76 Atrial Rate 76 P-R Interval 192 QRS Duration 174 Q-T Interval 474 QTc 533 P Wave Frederic 12 R Frederic -82 T Frederic 82 ECG Interpretation Atrial-sensed ventricular-paced rhythm No change from previous ECG 07/21/2024 *Note: Due to a large number of results and/or encounters for the requested time period, some results have not been displayed. A complete set of results can be found in Results Review. TESTING: Lab Results Component Value Date CHOL 154 12/18/2023 Lab Results Component Value Date HDL 55 12/18/2023 No results found for: LDLCALC Lab Results Component Value Date TRIG 92 12/18/2023 LDL 81 Lab Results Component Value Date HGBA1C 5.9 12/18/2023 Most recent CMP completed 06/23/2024 with glucose of 129, BUN 31, and otherwise WNL with creatinine 0.96. ASSESSMENT/PLAN: Assessment & Plan Primary hypertension Previously hypertensive on multiple antihypertensive agents, now having apparent symptomatic hypotension; he is currently on a reduced dose of losartan as directed by his PCP due to continued apparent symptomatic hypotension, and amlodipine and furosemide were previously stopped. He continues to have vague complaints of lightheadedness that have improved since recovering from COVID and with decreased antihypertensive medications, but which do to appear to persist. We discussed the risks and benefits of discontinuing carvedilol versus losartan; ultimately through shared decision making, we have decided to discontinue losartan 25 mg daily and continue with carvedilol 3.125 mg twice daily for b enefit of both his coronary artery disease as well as heart failure. They will continue to monitor heart rate and blood pressure at home approximately 1 to 2 hours after morning medications, relayingthese readings to us at a blood pressure check with nursing in approximately 2 weeks at which time we will continue to readdress this. They will call sooner for any worsening or persistent symptoms despite these medication changes. It is possible that his COVID diagnosis was unknowingly contributing to hypotension due to inadequate hydration and that his dizziness may have been related to fallingill with COVID or not sleeping well as he describes today. Nevertheless, at 89 years old, we want to decrease the risk of falls as much as possible. We will continue to readdress this as indicated. Orders: ECG 12 lead Coronary artery disease involving chickahominy indians-eastern division coronary artery of chickahominy indians-eastern division heart without angina pectoris The patient offers no symptoms concerning for underlying ischemia within his current functional capacity. We will continue with carvedilol, isosorbide, atorvastatin, and daily clopidogrel; aspirin was previously discontinued as discussed with Dr. Tineo in November 2024. The patient was advised to seek emergent medical attention by calling 911 if they were to develop severe dyspnea, chest pain that did not resolve with rest or nitroglycerin, or if they were to faint. Orders: ECG 12 lead 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) As above, the patient offers no symptoms concerning for overt heart failure. He appears euvolemic on exam today. We will continue with carvedilol; as above we are discontinuing losartan today due to symptomatic hypotension. He will continue with furosemide as needed; however, I have cautioned them to use this carefully due to his dizziness as it may aggravate this further. His daughter states that they will call the office to discuss this further if they feel using it may be necessary. We discussed risk reduction through lifestyle modifications including healthy diet, routine exercise, and weight management. We reviewed heart failure management including low-sodium diet, symptom surveillance, daily weights and medication compliance. I've asked the patient to call if they develop worseningsymptoms of heart failure such as increased shortness of breath, new or worsening cough, increased swelling in the legs or ankles, or weight gain of more than 2 pounds in one day or 4 pounds in one week. Orders: Transthoracic echocardiogram (TTE) complete with PRN contrast, bubble, strain, and 3D order panel; Future Aortic atherosclerosis (CMS/HCC) Orders: Ambulatory referral to Cardiology Mixed hyperlipidemia LDL goal for this patient was a history of coronary artery disease is less than 70; his most recentlipid panel was completed in 12/2023 revealing an LDL of 81. In light of his advanced age, continue atorvastatin 20 mg daily. Complete heart block (CMS/HCC) Now status post pacemaker implantation; continue with remote and Orders: ECG 12 lead Pacemaker Orders: ECG 12 lead Transthoracic echocardiogram (TTE) complete with PRN contrast, bubble, strain, and 3D order panel; Future Status post transcatheter aortic valve replacement Most recent echocardiogram completed 07/2023 showing a bioprosthetic aortic valve that was well-seated and functioning normally. The patient offers no concerning symptoms and there is no significant murmur noted on exam today to suggest otherwise. We will be obtaining an echocardiogram Orders: Transthoracic echocardiogram (TTE) complete with PRN contrast, bubble, strain, and 3D order panel; Future Dizziness The cause for the patient's dizziness remains somewhat unclear; as discussed above may be related to his recent episode of COVID as well as poor hydration and symptomatic hypotension. No recent alerts on his device to suggest underlying arrhythmia as causative. We will continue to readdress his anti hypertensive therapies as appropriate. He was encouraged to continue with proper hydration and makeposition changes cautiously to prevent falls. He will return to care or seek urgent medical attention for any new or worsening symptoms. Given his history of TAVR as well as heart failure, we will obtain an echocardiogram to ensure no structural heart disease is contributory and to reevaluate his cardiac function. We will continue to readdress this as indicated. Orders: Transthoracic echocardiogram (TTE) complete with PRN contrast, bubble, strain, and 3D order panel; Future Thank you for allowing us to participate in the care of this patient. The patient will follow up in2 to 3 weeks with nursing for blood pressure check in 3 months with me, sooner PRN. As per AHA guidelines and previously established plan of care by Dr. Alfonso Tineo MD, we discussed the following today: 1. Primary hypertension 2. Coronary artery disease involving chickahominy indians-eastern division coronary artery of chickahominy indians-eastern division heart without angina pectoris 3. 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) 4. Aortic atherosclerosis (CMS/HCC) 5. Mixed hyperlipidemia 6. Complete heart block (CMS/HCC) 7. Pacemaker 8. Status post transcatheter aortic valve replacement 9. Dizziness [facility] Cosigned by Karmen Fortune MD at 12/20/2024 8:52 PM EST documented in this encounter Plan of Treatment Upcoming Encounters Date Type Department Care Team (Late st Contact Info) Description 02/01/2025 11:00 AM EDT Ancillary Procedure [facility] - [address] [place] [id number] 05/19/2025 8:30 AM EDT Office Visit Internal Medicine - [place] [address] [place] [id number] Cherri Wise MD [address] [facility] [address] [place] [id number] 10/05/2025 9:30 AM EST Ancillary Procedure [facility] - [address] [place] [address] Scheduled Orders Name Type Priority Associated Diagnoses Orde r Schedule Transthoracic echocardiogram (TTE) complete with PRN contrast, bubble, strain, and 3D order panel Echocardiography Routine 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) Pacemaker Status post transcatheter aortic valve replacement Dizziness 1 Occurrences starting 12/19/2024 until 12/17/2025 documented as of this encounter Procedures Procedure Name Priority Date/Time Associated Diagnosis Comments ECG 12-LEAD Routine 12/19/2024 2:23 PM EST Primary hypertension Coronary artery disease involving chickahominy indians-eastern division coronary artery of chickahominy indians-eastern division heart without angina pectoris Complete heart block (CMS/HCC) Pacemaker documented in this encounter Results * ECG 12 lead (12/19/2024 2:23 PM EST) Ventricular Rate ECG 76 BPM GEMUSE Atrial Rate 76 BPM GEMUSE P-R Interval 192 ms GEMUSE QRS Duration 174 ms GEMUSE Q-T Interval 474 ms GEMUSE QTc 533 ms GEMUSE P Wave Frederic 12 degrees GEMUSE R Frederic -82 degrees GEMUSE T Frederic 82 degrees GEMUSE ECG Interpretation Atrial-sens ed ventricular -paced rhythm No change from previous ECG 07/21/2024 Confirmed by Tamia FORTUNE YUFENG ([id number]) on 12/21/2024 9:44:04 PM GEMUSE 12/17/2024 11:2 1 AM EST 12/21/2024 9:44 PM EST Gail Haro NP ECG ORDERABLES Edite d Result - Final GEMUSE documented in this encounter Visit Diagnoses Diagnosis Primary hypertension- Primary Unspecified essential hypertension Coronary artery disease involving [place] 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 Reorder 12/16/2024 12/19/2024 losartan (Cozaar) 25 mg tablet Take 1 tablet (25 mg total) by mouth 1 (one) time each day. Side effects 12/02/2024 12/19/2024 nutritional drink (Ensure High Protein) liquid Nutritional Supplements (Ensure High Protein) Liquid Take 1 Bottle by mouth daily for 360 days. Discontinued by another clinician 06/22/2024 12/19/2024 sertraline (ZOLOFT) 50 mg tablet Take 25 mg by mouth daily. [facility] medication Discontinued by another clinician 12/19/2024 documented as of this encounter Orders Outpatient Referral Count Last Ordered Date Fir st Ordered Date AMB REFERRAL TO CARDIOLOGY 1 12/17/2024 documented in this encounter Care Teams Formulation Technician Relationship Specialty Start Date End Date Cherri Wise MD [address] [facility] [address] [place] [id number] PCP - General Internal Medicine 11/26/24 documented as of this encounter
--- OUTSIDE RECORDS SUMMARY | 2025-01-19 09:30 | XMS_ITS ---
Author Name [facility] [place] [facility] Address [address] [place] [address] Care Team Providers Care Skiver Machine Name Role Phone FRANK DEVAN Primary Care Provider Unavailabl e Insurance Providers: [...] Diamond's Name Patient's Relationship to Policy Diamond [facility] HEALTH PLAN MCR (WNR) MEDICARE ADVANTAGE [facility] (WNR) 2005 [facility] [id number] PATIENT Selected Encounter This section includes the information on record at [place] for the Encounter. Date/Time Encounter Type Encounter Description Reason Pro vider Source Jan 06, 2025 01:46 PM Outpatient Encounter PRIMARY CARE/MEDICINE IHE Encounter Template Text not used by [place] Plan of Treatment: Future Appointments (+ 6 months) and Future Tests (+/- 45 days) The Plan of Treatment section includes future care activities for the patient from all [place] treatmentfacilities. This section includes future appointments and future orders which are active, pending or scheduled. Future Appointments This section includes appointments that were scheduled to occur 6 months from the date of the Encounter, up to a maximum of 20 appointments. The data comes from all [place] treatment facilities. Appointment Date/Time Appointment Type Appointme nt Facility Name Jan 19, 2025 11:30 AM AMBULATORY - [facility] Feb 15, 2025 01:00 PM AMBULATORY - PSYCHIATRY [facility] Jun 01, 2025 10:00 AM [facility] Jun 01, 2025 10:30 AM [facility]ULATORY - MEDICINE [facility] Advance Directives: All historical and current Section Date Range: From patient's date of to the date document was created. This section includes ALL of a patient's completed or amended [place] Advance and Rescinded Directives. The entries below indicate that a directive exists for the patient, but an actual copy is not included with this document. The data comes from all [place] facilities. Date Advance Directives Provider Source Jan 26, 2018 ADVANCE DIRECTIVE TAI CURTIS [facility] Encounter Notes: All associated encounter notes This section contains the clinical notes associated to the Encounter. Date/Time Encounter Note(s) Provider Source Jan 06, 2025 01:46 PM PRIMARY CARE NOTE: LOCAL TITLE: WALK-IN NOTE PRIMARY CARE (T) STANDARD TITLE: PRIMARY CARE NOTE DATE OF NOTE: JAN 06, 2025@13:46 ENTRY DATE: JAN 06, 2025@13:46:39 AUTHOR: JANETH BLACKMON EXP COSIGNER: URGENCY: STATUS: COMPLETED WALK-IN NOTE PRIMARY CARE (T) Has ADDENDA <====Click to Start Advanced Medical Support [place] presents to the Primary Care clinic with the following request: [ X ]Medication Renewal/Refill [ ]Consultation with Team RN [ ]Symptoms [ ]Other The [place] states they are: [ ]Waiting [ X ]Not Waiting No Walk in visit scheduled with PACT Nurse [ X ] At this encounter the [place]'s demographics were verified. [ X ] At this encounter the 's Insurance information was verified. [ X ] At this encounter the below scheduled visits for the [place] were discussed and appointment reminder card was offered. Future appointments: 01/19/2025 11:30 SPR PACT 10 02/15/2025 13:00 SPR [facility] PSYTR 2 06/01/2025 10:00 [facility] OPTOMETRY VSL IMG 06/01/2025 10:30 [facility] OPTOMETRY 4 [place] is requesting a renewal on his Breo, he only has 5 puffs left. /darcie/ JANETH BLACKMON ADVANCED REEL CART OPERATOR Signed: 01/06/2025 13:47 Receipt Acknowledged By: 01/06/2025 14:14 /es/ BRENDA BERGER RN REGISTERED NURSE 01/06/2025 14:37 /es/ MIGUEL MOSES LPN PACT 10 01/06/2025 ADDENDUM STATUS: COMPLETED Left a message stating that a new script would be needed from Dr. Olson's office in order to fill. /darcie/ BRENDA BERGER RN REGISTERED NURSE Signed: 01/06/2025 14:15 JANETH BLACKMON
--- OUTSIDE RECORDS SUMMARY | 2025-01-19 09:30 | XMS_ITS | Encounter Summary ---
Author Organization [facility] Address [address] [place] [address] Care Team Providers Care Auger Supervisor Name Role Phone Cherri Wise MD Primary Care Provider [phone] Reason for Visit * Reason Comments Annual Exam Medicare Wellness Encounter Details Date Type Department Care Team (Late st Contact Info) Description 01/06/2025 12:45 PM EST Office Visit Internal Medicine - [place] [address] [facility] [address] [place] [address] Cherri Wise MD [address] [facility] [address] [place] [address] Primary hypertension (Primary Dx); Mixed hyperlipidemia; Complete heart block (CMS/HCC); Anemia, unspecified type; Encounter for subsequent annual wellness visit (AWV) in Medicare patient Social History Tobacco Use Types Packs/Day Years Used Date Smoking Tobacco: Former Cigarettes 2 42 0 11/09/1946 - 11/09/1988 Smokeless Tobacco: Never Tobacco Cessation:Counseling Given: Not Answered Alcohol Use Standard Drinks/Week Comments No 0 (1 standard drink = 0.6 oz pur e alcohol) Sex and Gender Information Value Date Recorded Sex Assigned at Not on file Legal Sex Male 10:00 PM EST Gender Identity Not on file Sexual Orientation Not on file documented as of this encounter Last Filed Vital Signs Vital Sign Reading Time Taken Comments Blood Pressure 112/76 01/06/2025 12:48 PM EST Pulse 84 01/06/2025 12:48 PM EST Temperature 36.3 ??C (97.3 ??F) 01/06/2025 12:[address] Respiratory Rate - - Oxygen Saturation 92% 01/06/2025 12:48 PM EST Inhaled Oxygen Concentration - - Weight 75.8 kg (167 lb) 01/06/2025 12:48 PM EST Height - - Body Mass Index 26.16 07/21/2024 1:42 PM EDT documented in this encounter Ordered Prescriptions Prescription Sig Dispense Quantity Refills Last Filled Start Date End Date clopidogreL (PLAVIX) 75 mg tablet Take 1 tablet (75 mg total) by mouth 1 (one) time each day. 90 tablet 3 01/06/2025 documented in this encounter Progress Notes * Cherri Wise MD - 01/06/2025 12:45 PM ESTAssociated Problem(s): Hypertension Orders: Comprehensive metabolic panel; Future Lipid panel with reflex to direct LDL; Future Complete blood count; Future Vitamin B12; Future Magnesium; Future * Cherri Wise MD - 01/06/2025 12:45 PM ESTAssociated Problem(s): Mixed hyperlipidemia Orders: Comprehensive metabolic panel; Future Lipid panel with reflex to direct LDL; Future Complete blood count; Future Vitamin B12; Future Magnesium; Future * Cherri Wise MD - 01/06/2025 12:45 PM ESTAssociated Problem(s): Complete heart block (CMS/HCC) Orders: Comprehensive metabolic panel; Future Lipid panel with reflex to direct LDL; Future Complete blood count; Future Vitamin B12; Future Magnesium; Future * Cherri Wise MD - 01/06/2025 12:45 PM ESTAssociated Problem(s): Anemia Orders: Comprehensive metabolic panel; Future Lipid panel with reflex to direct LDL; Future Complete blood count; Future Vitamin B12; Future Magnesium; Future * Cherri Wise MD - 01/06/2025 12:45 PM EST Images from the original note were not included. CHIEF COMPLAINT: Annual Exam (Medicare Wellness) IDENTIFIER: Costa Copeland is a 89 y.o. old male. HPI:Hypertension, atherosclerosis, hyperlipidemia, gout, diverticulosis, anemia, COPD, pacemaker, s/p transcatheter aortic valve replacement. Doing well. Accompanied by his daughter, No complaints today ROS: GENERAL: No malaise, significant weight loss or fever NECK: No lumps, goiter, pain or significant neck swelling RESPIRATORY: No cough, wheezing or shortness of breath CARDIOVASCULAR: No chest pain, leg swelling or palpitations GI: No abdominal discomfort, blood in stools or black stools PSYCH: No sleep disturbance, mood disorder or recent psychosocial stressors. PAST MEDICAL HISTORY: Patient Active Problem List Diagnosis Date Noted Status post transcatheter aortic valve replacement 12/19/2024 Complete heart block (CMS/HCC) 07/21/2024 Chest pain 07/15/2024 Fatigue 07/15/2024 Unilateral weakness 08/20/2022 Coronary artery disease involving [place] coronary artery of [place] heart without angina pectoris 05/10/2021 Phimosis 03/29/2021 Anemia 05/22/2018 Chronic low back pain 05/22/2018 Gout 04/13/2018 Hypertension 04/13/2018 Mixed hyperlipidemia 04/13/2018 Pacemaker 04/13/2018 Chronic obstructive pulmonary disease (CMS/HCC) 03/31/2018 Dyspnea 03/31/2018 Pulmonary nodules 03/31/2018 Diverticulosis 02/13/2018 Cardiac murmur 06/23/2017 Congestive heart failure (CHF) (CMS/HCC) 11/20/2016 Fatty liver 09/20/2016 Aortic atherosclerosis (CMS/HCC) 03/22/2016 Past Surgical History: Procedure Laterality Date CATARACT EXTRACTION PROCEDURE: HISTORICAL CATARACT REMOVAL COLONOSCOPY PROCEDURE: HISTORICAL COLONOSCOPY HEMORRHOID SURGERY PROCEDURE: DESTRUCTION OF HEMORRHOIDS HERNIA REPAIR PROCEDURE: HISTORICAL HERNIA REPAIR/UMB; COMMENT: ? hernia repair PACEMAKER IMPLANT PROCEDURE: HISTORICAL PACEMAKER TONSILLECTOMY PROCEDURE: HISTORICAL TONSILLECTOMY UPPER GASTROINTESTINAL ENDOSCOPY PROCEDURE: TN UPPER GI ENDOSCOPY PERFORMED SOCIAL HISTORY: Social History Tobacco Use Smoking status: Former Current packs/day: 0.00 Average packs/day: 2.0 packs/day for 42.0 years (84.0 ttl pk-yrs) Types: Cigarettes Start date: 11/09/1946 Quit date: 11/09/1988 Years since quittin.1 Smokeless tobacco: Never Substance Use Topics Alcohol use: No FAMILY HISTORY: Family History Problem Relation Name Age of Onset Hypertension Mother stroke Other (Other: Cancer) Father Family Status Relation Name Status Mother Father No partnership data on file MEDICATIONS DISCONTINUED/REORDERED: Medications Discontinued During This Encounter Medication Reason clopidogreL (PLAVIX) 75 mg tablet Reorder ACTIVE MEDICATIONS: Outpatient Medications Marked as Taking for the 01/06/25 encounter (Office Visit) with Cherri Wise MD Medication Sig Dispense Refill albuterol HFA (PROAIR HFA ; PROVENTIL HFA ; VENTOLIN HFA) 90 mcg/actuation inhaler Inhale 2 Puffs into the lungs every 4 hours as needed. atorvastatin (LIPITOR) 20 mg tablet Take 1 tablet (20 mg total) by mouth 1 (one) time each day. 30 each 5 carvediloL (COREG) 3.125 mg tablet Take 1 tablet (3.125 mg total) by mouth 2 (two) times a day withmeals. clopidogreL (PLAVIX) 75 mg tablet Take 1 tablet (75 mg total) by mouth 1 (one) time each day. 90 tablet 3 fluticasone furoate-vilanteroL (BREO ELLIPTA) 100-25 mcg/dose inhaler furosemide (LASIX) 20 mg tablet Take 1 tablet (20 mg total) by mouth 1 (one) time each day if needed (leg/ankle swelling). 90 tablet 1 gabapentin (NEURONTIN) 300 mg capsule TAKE 1 CAPSULE BY MOUTH THREE TIMES DAILY ipratropium-albuteroL (DUONEB) 0.5-2.5 mg/3 mL nebulizer solution as needed. isosorbide mononitrate (IMDUR) 30 mg 24 hr tablet TAKE 1 TABLET BY MOUTH DAILY 90 tablet 2 miscellaneous medical supply misc Oxygen Historical (HISTORICAL OXYGEN) Inhale 2 L into the lungs. night nitroglycerin (NITROSTAT) 0.[address] 1 Tablet under the tongue every 5 minutes as needed for Chest pain. omeprazole (PriLOSEC) [address] capsule Take 1 capsule (20 mg total) by mouth 1 (one) time each day.Do not crush or chew. 60 capsule 2 tiotropium (Spiriva Respimat) 2.5 mcg/actuation inhalation spray INHALE 2 PUFFS BY MOUTH ONCE DAILY traZODone (DESYREL) 50 mg tablet 2 Tablets at bedtime. [DISCONTINUED] clopidogreL (PLAVIX) 75 mg tablet TAKE 1 TABLET BY MOUTH DAILY ALLERGIES: No Known Allergies PHYSICAL EXAM: Visit Vitals BP 112/76 (BP Location: Left arm, Patient Position: Sitting, BP Cuff Size: Large adult) Pulse 84 Temp 36.3 ??C (97.3 ??F) (Temporal) Wt 75.8 kg (167 lb) SpO2 92% BMI 26.16 kg/m?? Smoking Status Former BSA 1.87 m?? APPEARANCE: Alert and in no acute distress NECK: Neck supple, no adenopathy, thyroid symmetric and of normal size HEART: RRR with normal S1 and S2, no murmurs, no gallops, no JVD appreciated LUNG: clear to auscultation ABDOMEN: Bowel sounds normoactive, no bruits, soft, non-tender, without organomegaly or palpable masses SKIN: Skin color, texture, turgor normal. No rashes or lesions. LABS/IMAGING: Office Visit on 12/17/2024 Component Date Value Ref Range Status Ventricular Rate ECG 12/19/2024 76 BPM Corrected Atrial Rate 12/19/2024 76 BPM Corrected P-R Interval 12/19/2024 192 ms Corrected QRS Duration 12/19/2024 174 ms Corrected Q-T Interval 12/19/2024 474 ms Corrected QTc 12/19/2024 533 ms Corrected P Wave Rogers 12/19/2024 12 degrees Corrected R Rogers 12/19/2024 -82 degrees Corrected T Rogers 12/19/2024 82 degrees Corrected ECG Interpretation 12/19/2024 Corrected Value:Atrial-sensed ventricular-paced rhythm No change from previous ECG 07/21/2024 Confirmed by Tamia GRACE YUFENG ([id number]) on 12/21/2024 9:44:04 PM Ancillary Procedure on 12/07/2024 Component Date Value Ref Range Status Date Time Interrogation Session 12/07/202493014773998328 Final Type Interrogation Session 12/07/2024 Remote Scheduled Final Implantable Pulse Generator Manufa* 12/07/2024 BSX Final Implantable Pulse Generator Type 12/07/2024 IPG Final Implantable Pulse Generator Model 12/07/2024 L111 Final Implantable Pulse Generator Serial* 12/07/2024 [id number] Final Implantable Pulse Generator Implan* 12/07/2024201721867648 Final Battery Remaining Percentage 12/07/2024 15.00 Final Battery Remaining Longevity 12/07/2024 10.0 Final Battery Status 12/07/2024 Middle of Service Final Sukhdev Statistic RA Percent Paced 12/07/2024 38.00 Final Sukhdev Statistic RV Percent Paced 12/07/2024 97.00 Final Atrial Tachy Statistic AT/AF Burde* 12/07/2024 0.00 Final Lead Channel Sensing Intrinsic Amp* 12/07/2024 1.000 Final Lead Channel Setting Sensing Sensi* 12/07/2024 0.25 Final Lead Channel Impedance Value 12/07/2024 601 Final Lead Channel Pacing Threshold Ampl* 12/07/2024 0.700 Final Lead Channel Pacing Threshold Puls* 12/07/2024 0.4 Final Lead Channel RA Pacing Threshold D* 12/07/2024 2024-11-29 Final Lead Channel Setting Pacing Amplit* 12/07/2024 2.000 Final Lead Channel Setting Pacing Pulse * 12/07/2024 0.4 Final Lead Channel Sensing Intrinsic Amp* 12/07/2024 25.000 Final Lead Channel Setting Sensing Sensi* 12/07/2024 1.50 Final Lead Channel Impedance Value 12/07/2024 678 Final Lead Channel Pacing Threshold Ampl* 12/07/2024 1.000 Final Lead Channel Pacing Threshold Puls* 12/07/2024 0.4 Final Lead Channel RV Pacing Threshold D* 12/07/2024 2024-11-29 Final Lead Channel Setting Pacing Amplit* 12/07/2024 1.500 Final Lead Channel Setting Pacing Pulse * 12/07/2024 0.4 Final Sukhdev Setting Mode (NBG Code) 12/07/2024 DDD Final Sukhdev Setting Lower Rate Limit 12/07/2024 60 Final Sukhdev Setting AT Mode Switch Rate 12/07/2024 170 Final Sukhdev Setting Maximum Tracking Rate 12/07/2024 130 Final Sukhdev Setting PAV Delay 12/07/2024 180 Final Sukhdev Setting CAYETANO Delay 12/07/2024 150 Final Zone Setting Type Category 12/07/2024 VT Final Rate 12/07/2024 160 Final Zone Setting Status 12/07/2024 Monitor Final Zone ID 12/07/2024 1 Final Date of Service 12/07/2024 2024-12-11 Final Ancillary Procedure on 11/29/2024 Component Date Value Ref Range Status Date Time Interrogation Session 11/29/202469067059054710 Final Implantable Pulse Generator Manufa* 11/29/2024 BSX Final Implantable Pulse Generator Type 11/29/2024 IPG Final Implantable Pulse Generator Model 11/29/2024 L111 Final Implantable Pulse Generator Serial* 11/29/2024 [id number] Final Implantable Pulse Generator Implan* 11/29/2024201733924245 Final Battery Remaining Longevity 11/29/2024 10.0 Final Battery Status 11/29/2024 Middle of Service Final Lead Channel Sensing Intrinsic Amp* 11/29/2024 0.800 Final Lead Channel Setting Sensing Sensi* 11/29/2024 0.25 Final Lead Channel Impedance Value 11/29/2024 614 Final Lead Channel Pacing Threshold Ampl* 11/29/2024 0.800 Final Lead Channel Pacing Threshold Puls* 11/29/2024 0.4 Final Lead Channel RA Pacing Threshold D* 11/29/2024 2024-11-29 Final Lead Channel Setting Pacing Amplit* 11/29/2024 3.500 Final Lead Channel Setting Pacing Pulse * 11/29/2024 0.4 Final Lead Channel Sensing Intrinsic Amp* 11/29/2024 25.000 Final Lead Channel Setting Sensing Sensi* 11/29/2024 1.50 Final Lead Channel Impedance Value 11/29/2024 702 Final Lead Channel Pacing Threshold Ampl* 11/29/2024 1.000 Final Lead Channel Pacing Threshold Puls* 11/29/2024 0.4 Final Lead Channel RV Pacing Threshold D* 11/29/2024 2024-11-29 Final Lead Channel Setting Pacing Amplit* 11/29/2024 3.500 Final Lead Channel Setting Pacing Pulse * 11/29/2024 0.4 Final Sukhdev Setting Mode (NBG Code) 11/29/2024 DDD Final Sukhdev Setting Lower Rate Limit 11/29/2024 60 Final Sukhdev Setting AT Mode Switch Rate 11/29/2024 170 Final Sukhdev Setting Maximum Tracking Rate 11/29/2024 130 Final Sukhdev Setting PAV Delay 11/29/2024 180 Final Sukhdev Setting CAYETANO Delay 11/29/2024 150 Final Zone Setting Type Category 11/29/2024 VF Final Zone Setting Status 11/29/2024 On Final Zone ID 11/29/2024 1 Final Zone Setting Type Category 11/29/2024 VT Final Rate 11/29/2024 160 Final Zone Setting Status 11/29/2024 On Final Zone ID 11/29/2024 2 Final Zone Setting Type Category 11/29/2024 VT1 Final Zone Setting Status 11/29/2024 On Final Zone ID 11/29/2024 3 Final Date of Service 11/29/2024 2024-11-29 Final Abstract on 09/29/2024 Component Date Value Ref Range Status Hepatitis C Screening 03/15/2019 abstracted Final Annual BMP Blood Test 06/23/2024 abstracted Final LDL/HDL Ratio 12/18/2023 3 0 - 4 Final Triglycerides 12/18/2023 92 0 - 150 mg/dL Final Cholesterol 12/18/2023 154 0 - 200 mg/dL Final HDL 12/18/2023 55 >=40 mg/dL Final LDL Cholesterol 12/18/2023 81 0 - 100 mg/dL Final Hemoglobin A1C 12/18/2023 5.9 <=6.5 % Final Ancillary Procedure on 09/14/2024 Component Date Value Ref Range Status Date Time Interrogation Session 09/14/202433595421902750 Final Type Interrogation Session 09/14/2024 Remote Scheduled Final Implantable Pulse Generator Manufa* 09/14/2024 BSX Final Implantable Pulse Generator Type 09/14/2024 IPG Final Implantable Pulse Generator Model 09/14/2024 L111 Final Implantable Pulse Generator Serial* 09/14/2024 [id number] Final Implantable Pulse Generator Implan* 09/14/2024 [id number] Final Battery Remaining Percentage 09/14/2024 20.00 Final Battery Remaining Longevity 09/14/2024 12.0 Final Battery Status 09/14/2024 Beginning of Service Final Sukhdev Statistic RA Percent Paced 09/14/2024 40.00 Final Sukhdev Statistic RV Percent Paced 09/14/2024 95.00 Final Atrial Tachy Statistic AT/AF Burde* 09/14/2024 1.00 Final Lead Channel Sensing Intrinsic Amp* 09/14/2024 0.500 Final Lead Channel Setting Sensing Sensi* 09/14/2024 0.25 Final Lead Channel Impedance Value 09/14/2024 624 Final Lead Channel Pacing Threshold Ampl* 09/14/2024 0.600 Final Lead Channel Pacing Threshold Puls* 09/14/2024 0.4 Final Lead Channel RA Pacing Threshold D* 09/14/2024 2024-08-30 Final Lead Channel Setting Pacing Amplit* 09/14/2024 2.000 Final Lead Channel Setting Pacing Pulse * 09/14/2024 0.4 Final Lead Channel Sensing Intrinsic Amp* 09/14/2024 25.000 Final Lead Channel Setting Sensing Sensi* 09/14/2024 1.50 Final Lead Channel Impedance Value 09/14/2024 665 Final Lead Channel Pacing Threshold Ampl* 09/14/2024 1.000 Final Lead Channel Pacing Threshold Puls* 09/14/2024 0.4 Final Lead Channel RV Pacing Threshold D* 09/14/2024 2024-08-30 Final Lead Channel Setting Pacing Amplit* 09/14/2024 1.400 Final Lead Channel Setting Pacing Pulse * 09/14/2024 0.4 Final Sukhdev Setting Mode (NBG Code) 09/14/2024 DDD Final Sukhdev Setting Lower Rate Limit 09/14/2024 60 Final Sukhdev Setting AT Mode Switch Rate 09/14/2024 170 Final Sukhdev Setting Maximum Tracking Rate 09/14/2024 130 Final Sukhdev Setting PAV Delay 09/14/2024 180 Final Sukhdev Setting CAYETANO Delay 09/14/2024 150 Final Zone Setting Type Category 09/14/2024 VT Final Rate 09/14/2024 160 Final Zone Setting Status 09/14/2024 Monitor Final Zone ID 09/14/2024 1 Final Date of Service 09/14/2024 2024-09-11 Final Medication and lab orders: Orders Placed This Encounter Procedures Comprehensive metabolic panel Lipid panel with reflex to direct LDL Complete blood count Vitamin B12 Magnesium Other orders: None IMPRESSION: 1. Primary hypertension 2. Mixed hyperlipidemia 3. Complete heart block (CMS/HCC) 4. Anemia, unspecified type 5. Encounter for subsequent annual wellness visit (AWV) in Medicare patient PLAN: Hypertension: continue carvedilol to 3.125 mg Hyperlipidemia--continue atorvastatin 20 mg daily Valve replacement-continue clopidogrel 75 mg CHF-furosemide 20 mg daily, isosorbide 30 mg daily. COPD --continue DuoNeb and albuterol, Spiriva Insomnia--continue trazodone GERD--continue omeprazole 20 mg daily Will order CMP CBC Will follow-up in 4 months or sooner as needed Follow-up - Cardiology appointment tomorrow Cherri Wise MD on 01/06/2025 at 5:37 PM EST Medicare Annual Wellness Visit Note Patient Name: Costa Copeland Date of : 1935 Race: White Ethnicity: Not Hispan/Lat Date of Service: 01/06/2025 Patient Care Team: Cherri Wise MD as PCP - General (Internal Medicine) Tyler Flores MD as Surgeon (Cardiology) Alfonso Tineo MD as Surgeon (Cardiology) Bubba Iverson NP as Nurse Practitioner (Cardiology) Gail Haro NP as Nurse Practitioner (Cardiology) Patient does not currently have/use medical supplier. Costa is a 89 y.o. male presenting for Annual Exam (Medicare Wellness) HPI Patient Active Problem List Diagnosis Anemia Aortic atherosclerosis (CMS/HCC) Cardiac murmur Chest pain Chronic low back pain Chronic obstructive pulmonary disease (CMS/HCC) Complete heart block (CMS/HCC) Congestive heart failure (CHF) (CMS/HCC) Coronary artery disease involving [place] coronary artery of [place] heart without angina pectoris Diverticulosis Dyspnea Fatty liver Gout Hypertension Mixed hyperlipidemia Pacemaker Phimosis Pulmonary nodules Fatigue Unilateral weakness Status post transcatheter aortic valve replacement No Known Allergies Current Outpatient Medications Medication Instructions albuterol HFA (PROAIR HFA ; PROVENTIL HFA ; VENTOLIN HFA) 90 mcg/actuation inhaler Inhale 2 Puffs into the lungs every 4 hours as needed. atorvastatin (LIPITOR) 20 mg, oral, Daily carvediloL (COREG) 3.125 mg, oral, 2 times daily with meals clopidogreL (PLAVIX) 75 mg, oral, Daily fluticasone furoate-vilanteroL (BREO ELLIPTA) 100-25 mcg/dose inhaler furosemide (LASIX) 20 mg, oral, Daily PRN gabapentin (NEURONTIN) 300 mg capsule TAKE 1 CAPSULE BY MOUTH THREE TIMES DAILY ipratropium-albuteroL (DUONEB) 0.5-2.5 mg/3 mL nebulizer solution as needed. isosorbide mononitrate (IMDUR) 30 mg 24 hr tablet TAKE 1 TABLET BY MOUTH DAILY miscellaneous medical supply misc Oxygen Historical (HISTORICAL OXYGEN) Inhale 2 L [...] 50 mg tablet 2 Tablets at bedtime. Past Medical History: Diagnosis Date Anemia 05/22/2018 DX:Anemia Aortic atherosclerosis (CMS/HCC) 03/22/2016 DX:Aortic atherosclerosis (HCC); COMMENT: Comments: 03/01/15 Thoracic aorta calcification Cardiac murmur 06/23/2017 DX:Cardiac murmur Chronic low back pain 05/22/2018 DX:Chronic low back pain Chronic obstructive pulmonary disease (CMS/HCC) 03/31/2018 DX:Chronic obstructive pulmonary disease (HCC) Congestive heart failure (CHF) (CMS/HCC) 11/20/2016 DX:Congestive heart failure (CHF) (HCC) Diverticulosis 02/13/2018 DX:Diverticulosis Dyspnea 03/31/2018 DX:Dyspnea Fatty liver 09/20/2016 DX:Fatty liver Gout 04/13/2018 DX:Gout History of colonic polyps 10/02/2016 DX:History of colonic polyps Hyperlipidemia 04/13/2018 DX:Hyperlipidemia Hypertension 04/13/2018 DX:Hypertension Pacemaker 04/13/2018 DX:Pacemaker Pulmonary nodules 03/31/2018 DX:Pulmonary nodules Past Surgical History: Procedure Laterality Date CATARACT EXTRACTION PROCEDURE: HISTORICAL CATARACT REMOVAL COLONOSCOPY PROCEDURE: HISTORICAL COLONOSCOPY HEMORRHOID SURGERY PROCEDURE: DESTRUCTION OF HEMORRHOIDS HERNIA REPAIR PROCEDURE: HISTORICAL HERNIA REPAIR/UMB; COMMENT: ? hernia repair PACEMAKER IMPLANT PROCEDURE: HISTORICAL PACEMAKER TONSILLECTOMY PROCEDURE: HISTORICAL TONSILLECTOMY UPPER GASTROINTESTINAL ENDOSCOPY PROCEDURE: TN UPPER GI ENDOSCOPY PERFORMED Social History Tobacco Use Smoking status: Former Current packs/day: 0.00 Average packs/day: 2.0 packs/day for 42.0 years (84.0 ttl pk-yrs) Types: Cigarettes Start date: [birth year]09/1946 Quit date: 11/09/1988 Years since quittin.1 Smokeless tobacco: Never Substance Use Topics Alcohol use: No Drug use: No Family History Problem Relation Name Age of Onset Hypertension Mother stroke Other (Other: Cancer) Father Immunization History Administered Date(s) Administered Moderna SARS-CoV-2 COVID-19, mRNA, LNP-S, preservative free 01/06/2022 Pneumococcal conjugate 13 valent (Prevnar 13, PCV13) 2mo and older 08/15/2016 Td Tetanus diptheria (Tdvax) 7yo and older 2006 Tdap Tetanus diptheria acellular pertussis (Boostrix; Adacel) 7yo and older 06/03/2016 Health Maintenance Topic Date Due Zoster Vaccines (1 of 2) Never done RSV Immunization Patients 60+ Years Old (1 - 1-dose 75+ series) Never done Social Influencers of Health Screening Never done Medicare Annual Wellness Visit Never done Influenza Vaccine (1) 07/04/2024 COVID-19 Vaccine (2 - season) 2024 Hypertension/CHF/CAD Annual BMP Blood Test 06/23/2025 Falls Risk Assessment 01/06/2026 Depression Screening 01/06/2026 DTaP,Tdap,and Td Vaccines (3 - Td or Tdap) 06/03/2026 Cholesterol Screening (Lipid Panel) 12/18/2028 Pneumococcal Vaccine: 50+ Years Completed HIB Vaccines Aged Out Hepatitis B Vaccines Aged Out IPV Vaccines Aged Out Hepatitis A Vaccines Aged Out MMR Vaccines Aged Out Varicella Vaccines Aged Out Meningococcal ACWY Vaccine Aged Out Meningococcal B Vacine Aged Out HPV Vaccines Aged Out RSV Immunization Patients Under 20 months Aged Out Hospitalization in the last year: Has not been hospitalized in the past 12 months. Cognitive Function Assessment: Cognitive screening performed. Mini COG Word Recall: Three Words Fall Screening: Have you fallen in the past year? no. Are you worried about falling? no. . Depression Screening Over the last 2 weeks, how often have you been bothered by little interest or pleasure in doing things?: Not at all Over the last 2 weeks, how often have you been bothered by feeling down, depressed, or hopeless?: Not at all Depression Risk: 0 PHQ9 Full Set of Questions Over the last 2 weeks, how often have you been bothered by little interest or pleasure in doing things?: Not at all Over the last 2 weeks, how often have you been bothered by feeling down, depressed, or hopeless?: Not at all Depression Risk Score NEW: 0 Functional Ability and Level of Safety Review Health Status: In general, the patient reports health as: good In general, patient reports life as: fair Patient reports sleep pattern as: sleeping well Have you seen a dentist in the last year?: Yes Activity of Daily Living (ADLs): Do you need help from others for your personal care such as eating, dressing, toileting, or gettingaround the house?: No Do you experience incontinence?: No Instrumental Activities of Daily Living (IADLs): Do you need help with using the telephone?: No Do you need help with shopping?: No Do you need help with food preparation?: No Do you need help with housekeeping?: No Do you need help with laundry?: No Do you need help handling finances?: No Do you drive?: Yes Do you manage your own medication?: Yes, independent Physical Activity: Do you exercise for about 20 minutes or more three days a week?: No Nutritional Assessment: Do you eat a balanced diet including daily serving of fruits, vegetables, and whole grains?: Yes, always Sexual Health: Have you been bothered by sexual problems: No Review of Systems Objective BP 112/76 (BP Location: Left arm, Patient Position: Sitting, BP Cuff Size: Large adult) Pulse 84 Temp 36.3 ??C (97.3 ??F) (Temporal) Wt 75.8 kg (167 lb) BMI 26.16 kg/m?? SpO2: 92 % Hearing: No data recorded Vision Screening: Required for Medicare Initial Preventative Physical Exam (IPPE) No data recorded Physical Exam Patient presented today for an Subsequent Medicare Wellness Visit with management of chronic condition(s). Assessment & Plan Primary hypertension Orders: Comprehensive metabolic panel; Future Lipid panel with reflex to direct LDL; Future Complete blood count; Future Vitamin B12; Future Magnesium; Future Mixed hyperlipidemia Orders: Comprehensive metabolic panel; Future Lipid panel with reflex to direct LDL; Future Complete blood count; Future Vitamin B12; Future Magnesium; Future Complete heart block (CMS/HCC) Orders: Comprehensive metabolic panel; Future Lipid panel with reflex to direct LDL; Future Complete blood count; Future Vitamin B12; Future Magnesium; Future Anemia, unspecified type Orders: Comprehensive metabolic panel; Future Lipid panel with reflex to direct LDL; Future Complete blood count; Future Vitamin B12; Future Magnesium; Future Encounter for subsequent annual wellness visit (AWV) in Medicare patient Risk Assessments: Body mass index is 26.16 kg/m??. The BMI is in the acceptable range. Fall Risk: Have you fallen in the past year? no. Are you worried about falling? no. Discussed: clear pathways/stairs Depression Risk Score NEW: 0 Depression plan: Screen was negative Pain Medication: Patient does not take any opioid medications Advance Care Planning Advance care planning is the process of planning for future medical care in case you are unable to make your own medical decisions. It involves choosing a health care data entry representative and reviewing future health care directives. The patient Advance Directives: does not have advance directives or surrogate decision maker.. Advance directives reviewed and/or discussed: Patient is not interested in discussing advance care planning or health care agent at this time. Health Maintenance Due Topic Date Due Zoster Vaccines (1 of 2) Never done RSV Immunization Patients 60+ Years Old (1 - 1-dose 75+ series) Never done Social Influencers of Health Screening Never done Medicare Annual Wellness Visit Never done Influenza Vaccine (1) 07/04/2024 COVID-19 Vaccine (2 - 2023-25 season) 2024 The following vaccine(s) were recommended: Vaccines Recommended: Patient up to date on all vaccines Patient Instructions (the written plan) as discussed and documented in our visit today. Cherri Wise MD INTERNAL MEDICINE - [place] [address] [facility] [address] [facility] [address] Dept: [phone] Dept documented in this encounter Plan of Treatment Upcoming Encounters Date Type Department Care Team (Late st Contact Info) Description 02/01/2025 11:00 AM EDT Ancillary Procedure [facility] [address] [facility] [address] [place] [address] 05/19/2025 8:30 AM EDT Office Visit Internal Medicine - [place] [address] [facility] [address] [place] [phone] Cherri Wise MD [address] [facility] [address] [place] [address] 10/05/2025 9:30 AM EST Ancillary Procedure [facility] [address] [facility] [address] [place] [address] documented as of this encounter Results * Magnesium (01/12/2025 10:05 AM EDT) Pathologist [facility] Magnesium 2.2 1.9 - 2.6 mg/dL LAB CHEMISTRY METHOD 01/12/2025 12:26 PM EDT [facility] Blood Venous blood specimen / Unknown Venipuncture / Unknown 01/12/2025 10:05 AM EDT 01/12/2025 10:05 AM EDT us Cherri Wise MD LAB BLOOD ORDERABLES Final Res ult Performing Organization Address City/[facility]/ZIP Co de Phone Number [facility] [address] [place] [address], [place] [phone] * Vitamin B12 (01/12/2025 10:05 AM EDT) Pathologist [facility] Vitamin B-12 445 250 - 900 pcg/mL LAB CHEMISTRY METHOD 01/12/2025 12:50 PM EDT [facility] Blood Venous blood specimen / Unknown Venipuncture / Unknown 01/12/2025 10:05 AM EDT 01/12/2025 10:05 AM EDT us Cherri Wise MD LAB BLOOD ORDERABLES Final Res ult [facility] [address] [place] [address], [place] [phone] * (ABNORMAL) Complete blood count (01/12/2025 10:05 AM EDT) [facility] Signature WBC 5.5 4.8 - 10.8 K/mcL LAB HEMETOLOGY METHOD 01/12/2025 12:[facility] RBC 3.90(L) 4.50 - 5.50 M/mcL LAB HEMETOLOGY METHOD 01/12/2025 12:19 PM [facility] Hemoglobin 12.4(L) 13.5 - 17.5 g/dL LAB HEMETOLOGY METHOD 01/12/2025 12:19 PM [facility] Hematocrit 38.5(L) 42.0 - 54.0 % LAB HEMETOLOGY METHOD 01/12/2025 12:19 PM [facility] MCV 98.2(H) 79.0 - 98.0 FL LAB HEMETOLOGY METHOD 01/12/2025 12:19 PM [facility] MCH 31.6 27.0 - 32.0 pcg LAB HEMETOLOGY METHOD 01/12/2025 12:19 PM [facility] MCHC 32.2 32.0 - 37.0 g/dL LAB HEMETOLOGY METHOD 01/12/2025 12:19 PM [facility] RDW 13.2 11.0 - 15.0 % LAB HEMETOLOGY METHOD 01/12/2025 12:19 PM [facility] Platelets 146 130 - 400 K/mcL LAB HEMETOLOGY METHOD 01/12/2025 12:19 PM [facility] MPV 11.5(H) 7.0 - 11.0 FL LAB HEMETOLOGY METHOD 01/12/2025 12:19 PM [facility] NRBC 0.0 <1.0 % LAB HEMETOLOGY METHOD 01/12/2025 12:19 PM EDT [facility] NRBC Absolute 0.00 <0.10 K/mcL LAB HEMETOLOGY METHOD 01/12/2025 12:19 PM EDT [facility] Blood Venous blood specimen / Unknown Venipuncture / Unknown 01/12/2025 10:05 AM EDT 01/12/2025 10:05 AM EDT us Cherri Wise MD LAB BLOOD ORDERABLES Final Res ult [facility] [address] [place] [address], [place] [phone] * Lipid panel with reflex to direct LDL (01/12/2025 10:05 AM EDT) Cholesterol 118 0 - 200 mg/dL LAB CHEMISTRY METHOD 01/12/2025 12:50 PM [facility] Triglycerides 109 0 - 150 mg/dL LAB CHEMISTRY METHOD 01/12/2025 12:50 PM T [facility] HDL 54 >=40 mg/dL LAB CHEMISTRY METHOD 01/12/2025 12:50 PM T [facility] LDL Calculated 42 0 - 100 mg/dL LAB CHEMISTRY METHOD 01/12/2025 12:50 PM [facility] VLDL Cholesterol Paap 21.8 mg/dL LAB CHEMISTRY METHOD 01/12/2025 12:50 PM T [facility] Non HDL Chol. (LDL+VLDL) 64 <145 mg/dL LAB CHEMISTRY METHOD 01/12/2025 12:50 PM [facility] Chol/HDL Ratio 2.2 0.0 - 4.4 LAB CHEMISTRY METHOD 01/12/2025 12:50 PM [facility] Blood Venous blood specimen / Unknown Venipuncture / Unknown 01/12/2025 10:05 AM EDT 01/12/2025 10:05 AM EDT us Cherri Wise MD LAB BLOOD ORDERABLES Final Res ult [facility] [address] [place] [address], [place] [phone] * (ABNORMAL) Comprehensive metabolic panel (01/12/2025 10:05 AM EDT) Sodium 141 133 - 145 mmol/L LAB CHEMISTRY METHOD 01/12/2025 12:50 PM EDT [facility] Potassium 4.2 3.5 - 5.5 mmol/L LAB CHEMISTRY METHOD 01/12/2025 12:50 PM [facility] Chloride 104 96 - 110 mmol/L LAB CHEMISTRY METHOD 01/12/2025 12:50 PM [facility] CO2 29 21 - 32 mmol/L LAB CHEMISTRY METHOD 01/12/2025 12:50 PM [facility] Anion Gap 8 3 - 11 LAB CHEMISTRY METHOD 01/12/2025 12:50 PM [facility] Glucose 114(H) 70 - 100 mg/dL LAB CHEMISTRY METHOD 01/12/2025 12:50 PM [facility] BUN 19 5 - 25 mg/dL LAB CHEMISTRY METHOD 01/12/2025 12:50 PM [facility] Creatinine 0.97 0.70 - 1.30 mg/dL LAB CHEMISTRY METHOD 01/12/2025 12:50 PM [facility] eGFR 75 >=60 mL/min/1. 73m2 LAB CHEMISTRY METHOD 01/12/2025 12:50 PM [facility] Comment:Calculation based on the??Chronic Kidney Disease Epidemiology Collaboration (CKD-EPI) equation refit??without adjustment for race. BUN/Creatinine Ratio 19.6 LAB CHEMISTRY METHOD 01/12/2025 12:50 PM [facility] Calcium 9.3 8.5 - 10.5 mg/dL LAB CHEMISTRY METHOD 01/12/2025 12:50 PM EDT [facility] AST (SGOT) 34 10 - 42 unit/L LAB CHEMISTRY METHOD 01/12/2025 12:50 PM [facility] ALT (SGPT) 54 10 - 60 unit/L LAB CHEMISTRY METHOD 01/12/2025 12:50 PM T [facility] Alkaline Phosphatase 79 42 - 121 unit/L LAB CHEMISTRY METHOD 01/12/2025 12:50 PM T [facility] Total Protein 7.1 6.0 - 8.0 g/dL LAB CHEMISTRY METHOD 01/12/2025 12:50 PM [facility] Albumin 4.0 3.2 - 5.0 g/dL LAB CHEMISTRY METHOD 01/12/2025 12:50 PM [facility] Total Bilirubin 1.0 0.0 - 1.4 mg/dL LAB CHEMISTRY METHOD 01/12/2025 12:50 PM T [facility] Blood Venous blood specimen / Unknown Venipuncture / Unknown 01/12/2025 10:05 AM EDT 01/12/2025 10:05 AM EDT us Cherri Wise MD LAB BLOOD ORDERABLES Final Res ult [facility] [address] [place] [address], documented in this encounter Visit Diagnoses Diagnosis Primary hypertension- Primary Unspecified essential hypertension Mixed hyperlipidemia Complete heart block (CMS/HCC) Atrioventricular block, complete Anemia, unspecified type Encounter for subsequent annual wellness visit (AWV) in Medicare patient Encounter for adjustment or management of cardiac device documented in this encounter Discontinued Medications Medication Sig Discontinue Reason Start Date End Da te clopidogreL (PLAVIX) 75 mg tablet TAKE 1 TABLET BY MOUTH DAILY Reorder 06/10/2024 01/06/2025 documented as of this encounter Additional Health Concerns Assessment Noted Time PHQ-9 Depression Total Score: 0 03/06/20 25 12:56 PM EST A fall risk assessment has been complete d for the patient 01/06/2025 12:49 PM EST documented as of this encounter Care Teams Auger Supervisor Relationship Specialty Start Date End Date Cherri Wise MD [address] [phone] PCP - General Internal Medicine 11/26/24 documented as of this encounter
--- OUTSIDE RECORDS SUMMARY | 2025-01-19 09:30 | XMS_ITS | Encounter Summary ---
Author Name [facility] [place] [facility] [place] Address [address] [place] [address] Care Team Providers Care Arch Support Technician Name Role Phone DEVAN MARIE Primary Care Provider Unavailodell e Insurance Providers: All historical and current [...] Diamond's Name Patient's Relationship to Policy Diamond [facility] PL[facility] MCR (WNR) MEDICARE ADVANTAGE [facility] (WNR) 2005 [facility] [id number] PATIENT Selected Encounter This section includes the information on record at [place] for the Encounter. Date/Time Encounter Type Encounter Description Reason Pro vider Source Jan 19, 2025 11:30 AM Outpatient Encounter PRIMARY CARE/MEDICINE IHE Encounter Template Text not used by [place] Plan of Treatment: Future Appointments (+ 6 months) and Future Tests (+/- 45 days) The Plan of Treatment section includes future care activities for the patient from all [place] treatmentfacilities. This section includes future appointments and future orders which are active, pending or scheduled. Future Appointments This section includes appointments that were scheduled to occur 6 months from the date of the Encounter, up to a maximum of 20 appointments. The data comes from all [place] treatment facilities. Appointment Date/Time Appointment Type Appointme nt Facility Name Feb 15, 2025 01:00 PM AMBULATORY - PSYCHIATRY [facility] Jun 01, 2025 10:00 AM [place] [facility] Jun 01, 2025 10:30 AM [place] [facility] Social History: Smoking Status (Most current) and Tobacco Use (All prior to encounter date) This section includes the most current, and the historical, smoking and tobacco- related health factors from the [place] facility where the Encounter took place. Current Smoking Status This section includes the most current smoking, or tobacco-related health factor, from the [place] facility where the Encounter took place. Date/Time Current Smoking Status Comment [facility] Jan 20, 2024 11:30 AM VA-TOBACCO NEVER USED [place] Tobacco Use History This section includes a history of the smoking, or tobacco-related health factors, that were collected on or before the date of the Encounter. The data comes from the [place] facility where the Encounter took place. Date/Time Smoking Status/Tobacco Use Comment F acility Dec 19, 2022 02:00 PM VA-TOBACCO NEVER USED [place] Dec 18, 2021 09:00 AM VA-TOBACCO FORMER USER [place] [facility] Dec 18, 2021 09:00 AM VA-TOBACCO QUIT 15 YRS OR MORE [place] Dec 14, 2018 11:18 AM VA-TOBACCO FORMER USER [place] Dec 14, 2018 11:18 AM VA-TOBACCO QUIT 15 YRS OR MORE [place] Jan 26, 2018 11:24 AM QUIT TOBACCO USE > 7 YEARS AGO quit in 1987 [place] Advance Directives: All historical and current Section Date Range: From patient's date of to the date document was created. This section includes ALL of a patient's completed or amended [place] Advance and Rescinded Directives. The entries below indicate that a directive exists for the patient, but an actual copy is not included with this document. The data comes from all [place] facilities. Date Advance Directives Provider Source Jan 26, 2018 ADVANCE DIRECTIVE TAI CURTIS
--- OUTSIDE RECORDS SUMMARY | 2025-01-19 09:30 | XMS_ITS ---
Author Name [facility] [place] [facility] [place] Address [address] [place] [address] Care Team Providers Care Finished Goods Inspector Name Role Phone FRANK DEVAN Primary Care [...] Diamond's Name Patient's Relationship to Policy Diamond [facility] HEALTH PLAN MCR (WNR) MEDICARE ADVANTAGE [facility] (WNR) 2005 [facility] [id number] PATIENT Selected Encounter This section includes the information on record at [place] for the Encounter. Date/Time Encounter Type Encounter Description Reason Pro vider Source Jan 17, 2025 01:32 PM Outpatient Encounter PRIMARY CARE/MEDICINE IHE Encounter Template Text not used by [place] Plan of Treatment: Future Appointments (+ 6 months) and Future Tests (+/- 45 days) The Plan of Treatment section includes future care activities for the patient from all [place] treatmentfacilities. This section includes future appointments and future orders which are active, pending or scheduled. Future Appointments This section includes appointments that were scheduled to occur 6 months from the date of the Encounter, up to a maximum of 20 appointments. The data comes from all [place] treatment facilities. Appointment Date/Time Appointment Type Appointme nt Facility Name Jan 19, 2025 11:30 AM [facility] Feb 15, 2025 01:00 PM AMBULATORY - PSYCHIATRY [facility] Jun 01, 2025 10:00 AM [facility] [place] [facility] Jun 01, 2025 10:30 AM [facility] - [facility]ICINE [facility] Advance Directives: All historical and current Section Date Range: From patient's date of to the date document was created. This section includes ALL of a patient's completed or amended [place] Advance and Rescinded Directives. The entries below indicate that a directive exists for the patient, but an actual copy is not included with this document. The data comes from all [place] facilities. Date Advance Directives Provider Source Jan 26, 2018 ADVANCE DIRECTIVE TAI CURTIS [facility] Encounter Notes: All associated encounter notes This section contains the clinical notes associated to the Encounter. Date/Time Encounter Note(s) Provider Source Jan 17, 2025 01:32 PM PRIMARY CARE TELEP LOAN ENCOUNTER NOTE: LOCAL TITLE: TELEPHONE NOTE/PRIMARY CARE STANDARD TITLE: PRIMARY CARE TELEPHONE ENCOUNTER NOTE DATE OF NOTE: JAN 17, 2025@13:32 ENTRY DATE: JAN 17, 2025@13:32:15 AUTHOR: THUY HILL EXP COSIGNER: URGENCY: STATUS: COMPLETED AMSA CALLED TO REMIND OF UPCOMING APPOINTMENT. /darcie/ THUY HILL ADVANCED CROSSING FLAGMAN Signed: 01/17/2025 13:33 THUY HILL
--- OUTSIDE RECORDS SUMMARY | 2025-01-19 09:30 | XMS_ITS | Encounter Summary ---
Author Organization [facility] Address [address] [place] [address] Care Team Providers Care Bag Machine Operator Name Role Phone Cherri Wise MD Primary Care Provider [phone] Reason for Visit * Reason Comments Blood Pressure Check * Consultation (Routine) - Authorized Specialty Diagnoses / Procedures Referred By Sina nevarez Referred To Contact Cardiology Diagnoses Aortic atherosclerosis (CMS/HCC) Cherri Wise MD [address] [facility] [address] [place] [address] Phone: tel: fax: [facility] [address] [place] [address] Phone: tel: fax: Referral ID Status Reason Start Date Expiration Date Visits Requested Visits Authorized [id number] Authorized Specialty Services Required 12/01/2024 12/01/2025 12 12 Encounter Details Date Type Department Care Team (Late st Contact Info) Description 01/06/2025 9:30 AM EST Clinical Support [facility] [address] [facility] [address] [place] [address] Social History Tobacco Use Types Packs/Day Years [...] Sign Reading Time Taken Comments Blood Pressure 122/62 01/06/2025 9:57 AM EST Pulse 82 01/06/2025 9:57 AM EST Temperature - - Respiratory Rate - - Oxygen Saturation - - Inhaled Oxygen Concentration - - Weight - - Height - - Body Mass Index - - documented in this encounter Progress Notes * Anthony Villalobos MA - 01/06/2025 9:30 AM EST Pt here for BP check and he brought a log of readings. Went to [facility] and she would like pt to stay on current medication and check BP 2- 3 times a week. Pt and daughter aware. documented in this encounter Plan of Treatment Upcoming Encounters Date Type Department Care Team (Late st Contact Info) Description 02/01/2025 11:00 AM EDT Ancillary Procedure [facility] [address] [place] [address] 05/19/2025 8:30 AM EDT Office Visit Internal Medicine - [place] [address] [facility] [address] [place] [phone] Cherri Wise MD [address] [facility] [address] [place] [phone] 10/05/2025 9:30 AM EST Ancillary Procedure [facility]iology [facility] [address] [facility] [address] [place] [address] documented as of this encounter Visit Diagnoses Not on filedocumented in this encounter Additional Health Concerns Assessment Noted Time PHQ-9 Depression Total Score: 0 01/07/20 12:56 PM EST A fall risk assessment has been complete d for the patient 01/06/2025 12:49 PM EST documented as of this encounter Care Teams Bag Machine Operator Relationship Specialty Start Date End Date Cherri Wise MD [address] [phone] PCP - General Internal Medicine 11/26/24 documented as of this encounter
--- OUTSIDE RECORDS SUMMARY | 2025-01-19 09:30 | XMS_ITS | Encounter Summary ---
Author Organization [facility] Address [address] [place] [address] Care Team Providers Care Mobile Home Laborer Name Role Phone Cherri Wise MD Primary Care Provider [phone] Reason for Visit * Reason Onset Date Comments Faxed Order 11/26/2024 Valarie @ [facility] Encounter Details Date Type Department Care Team (Late st Contact Info) Description 11/26/2024 Telephone Internal Medicine - [place] [address] [facility] [address] [place] [address] Cherri Wise MD 175 [facility] [address] [place] [address] Faxed Order (Valarie @ [facility]) Social History Tobacco Use Types Packs/Day Years [...] as of this encounter Progress Notes * Kaylan Griffith - 11/26/2024 3:50 PM EST Valarie STORY is requesting a cb for update on a fax that was sent on 11/18/24. Pt has appt on Friday for a device check. I told her I don't see on my end it was received but it is most likely in our faxes system. Please advise? Ty documented in this encounter Plan of Treatment Upcoming Encounters Date Type Department Care Team (Late st Contact Info) Description 02/01/2025 11:00 AM EDT Ancillary Procedure [facility] Cardiology [facility] [address] [place] [address] 05/19/2025 8:30 AM EDT Office Visit Internal Medicine - [place] [address] [facility] [address] [place] [address] Cherri Wise MD [address] [facility] [address] [place] [address] 10/05/2025 9:30 AM EST Ancillary Procedure [facility] [address] [place] [address] documented as of this encounter Visit Diagnoses Not on filedocumented in this encounter Care Teams Mobile Home Laborer Relationship Specialty Start Date End Date Cherri Wise MD [address] [facility] [address] [place] [address] PCP - General Internal Medicine 11/26/24 documented as of this encounter
--- OUTSIDE RECORDS SUMMARY | 2025-01-19 09:30 | XMS_ITS ---
Author Name [facility] Organization [facility] [place] [facility] [place] Address [address] [place] [id number] Care Team Providers Care Hand Pattern Marker Name Role Phone EMMA MARIEA Primary Care Provider Brayden simon Insurance Providers: All historical and current Section Date Range: From patient's date of to the date document was created. This section includes the names of all active insurance providers for the patient. Insurance Provider Type of Coverage Plan Name Start of Policy Coverage End of Policy Coverage Group Number Member ID Insurance Provider's Telephone Number Policy Diamond's Name Patient's Relationship to Policy Diamond [facility] (WNR) MEDICARE ADVANTAGE [facility] (WNR) 2005 [facility] [id number] PATIENT Selected Encounter This section includes the information on record at [place] for the Encounter. Date/Time Encounter Type Encounter Description Reason Provider Source Oct 08, 2024 11:00 AM COMPRE OPH EXAM EST PT 1/> OPTOMETRY ICD-10-CM H40.1121 Primary open-angle glaucoma, left eye, mild stage DANYEL VIGIL Blanca Encounter Template Text not used by [place] Assessments - Encounter Diagnoses This section includes the primary and secondary diagnoses documented for the Encounter. Date/Time Primary/Secondary Diagnosis Diagnosis Name Provider Source Oct 08, 2024 11:52 AM PRIMARY Primary open-angle glaucoma, left eye, mild stage DANYEL VIGIL [place] [facility] [place] [facility] Oct 08, 2024 11:52 AM SECONDARY Other disorders of refraction DANYEL VIGIL [place] [facility] [place] [facility] Oct 08, 2024 11:52 AM SECONDARY Presence of intraocular lens DANYEL VIGIL [facility] Plan of Treatment: Future Appointments (+ 6 months) and Future Tests (+/- 45 days) The Plan of Treatment section includes future care activities for the [facility] This section includes future appointments and future orders which are active, pending or scheduled. Future Appointments This section includes appointments that were scheduled to occur 6 months from the date of the Encounter, up to a maximum of 20 appointments. The data comes from all [place] treatment facilities. Appointment Date/Time Appointment Type Appointme nt Facility Name Jan 19, 2025 11:30 AM AMBULATORY - MEDICINE [facility] Feb 15, 2025 01:00 PM AMBULATORY - PSYCHIATRY [facility] Advance Directives: All historical and current Section Date Range: From patient's date of to the date document was created. This section includes ALL of a patient's completed or amended [place] Advance and Rescinded Directives. The entries below indicate that a directive exists for the patient, but an actual copy is not included with this document. The data comes from all [facility]. Date Advance Directives Provider Source Jan 26, 2018 ADVANCE DIRECTIVE TAI CURTIS [facility] Encounter Notes: All associated encounter notes This section contains the clinical notes associated to the Encounter. Date/Time Encounter Note(s) Provider Source Oct 08, 2024 12:00 PM OPTOMETRY NOTE: LOCAL TITLE: OPTOMETRY NOTE(T) STANDARD TITLE: OPTOMETRY NOTE DATE OF NOTE: OCT 08, 2024@12:00 ENTRY DATE: OCT 08, 2024@12:00:50 AUTHOR: DANYEL VIGIL EXP COSIGNER: URGENCY: STATUS: COMPLETED Results were viewed and clinical findings were reviewed with student help desk internship and patient and results are in this note. Assessment and plan are reasonable. Newly diagnosed mild open-angle glaucoma OS secondary to progressive thinning of nerve fiber layer on OCT without field loss. Patient was started on latanoprost OS 1 drop at bedtime. The patient will return in 3 months or sooner if any problems arise. /darcie/ DANYEL VIGIL OD STAFF BOARDING KENNEL OR CATTERY OPERATOR Signed: 10/08/2024 12:02 DANYEL VIGIL [facility] Oct 08, 2024 11:39 AM OPTOMETRY NOTE: LOCAL TITLE: OPTOMETRY NOTE(T) STANDARD TITLE: OPTOMETRY NOTE DATE OF NOTE: OCT 08, 2024@11:39 ENTRY DATE: OCT 08, 2024@11:39:25 AUTHOR: DANYEL VIGIL EXP COSIGNER: URGENCY: STATUS: COMPLETED I saw this patient in conjunction with the student and agree to the stated findings and plan after reviewing both history and repeating bourgeois elements of physical exam. Patient presents for annual comprehensive exam well-known to me with history of larger asymmetric cupping with mildly progressing thinning on OCT OS, pseudophakia and dry eyes. He also has marked dermatochalasis which probably accounts for superior field depressions. Otherwise no acute ocular disease was seen today. He uses Restasis daily. Ordered bifocals clear and sunglasses for glare sensitivity. Started patient on latanoprost OS 1 drop at bedtime because of mildly progressing thinning of nerve fiber layer OS. The patient will return in 3 months or sooner if any problems arise, with repeat threshold erickson and pressure check. So patient would be considered high risk open-angle glaucoma suspect OD and mild primary open-angle glaucoma OS. /darcie/ DANYEL VIGIL OD STAFF BOARDING KENNEL OR CATTERY OPERATOR Signed: 10/08/2024 11:59 DANYEL VIGIL [place] [facility] [place] [facility] Oct 08, 2024 07:37 AM OPTOMETRY NOTE: LOCAL TITLE: OPTOMETRY NOTE STANDARD TITLE: OPTOMETRY NOTE DATE OF NOTE: OCT 08, 2024@07:37 ENTRY DATE: OCT 08, 2024@07:37:28 AUTHOR: STEVE FERGUSON EXP COSIGNER: DANYEL VIGIL URGENCY: STATUS: COMPLETED Active problems - Computerized Problem List is the source for the followin. Biologic cardiac valve prosthesis in situ 2. Adjustment disorder with anxious mood 3. Vitamin D deficiency 4. Peripheral vascular disease 5. Chronic congestive heart failure 6. Osteoarthritis 7. Low back pain 8. Gout 9. Bilateral Pulmonary Nodules 10. Exsmoker 11. Elevated liver enzymes level 12. Hyperlipidemia 13. Prediabetes 14. Heart murmur 15. Diverticulosis 16. Primary Care Physician 17. Hypertension 18. Gastroesophageal reflux disease 19. Chronic obstructive lung disease 20. Cardiac pacemaker in situ 21. Hard of hearing Active Outpatient Medications (including Supplies): Active Outpatient Medications Status = 1) ALBUTEROL 90MCG (CFC-F) 200D ORAL INHL INHALE 2 PUFFS BY ACTIVE MOUTH EVERY 4 HOURS NEEDED Indication: SHORTNESS OF BREATH/WHEEZING 2) ATORVASTATIN CALCIUM 20MG TAB TAKE ONE-HALF TABLET BY MOUTH ACTIVE AT BEDTIME Indication: FOR HIGH CHOLESTEROL 3) CARVEDILOL 6.25MG TAB TAKE ONE TABLET BY MOUTH TWICE DAILY ACTIVE Indication: FOR HIGH BLOOD PRESSURE 4) CETIRIZINE HCL 10MG TAB TAKE ONE TABLET BY MOUTH ONCE DAILY ACTIVE (RX BY DR ANNE EGAN) Indication: FOR ALLERGIES 5) CYCLOSPORINE 0.05% (PF) OPH EMUL 0.4ML INSTILL 1 DROP INTO ACTIVE EACH EYE ONCE DAILY ### 6) FLUTIC 100/VILANTEROL 25MCG 30D ORAL INH INHALE 1 PUFF BY ACTIVE MOUTH ONCE DAILY (RINSE MOUTH AFTER USE) FOR ASTHMA Indication: FOR CONTROLLER MEDICATION FOR ASTHMA 7) FLUTICASONE PROP 50MCG 120D NASAL INHL INSTILL 2 SPRAYS INTO ACTIVE EACH NOSTRIL ONCE DAILY (RX BY DR ANNE EGAN) Indication: FOR NASAL IRRITATION/INFLAMMATION 8) GABAPENTIN 300MG CAP TAKE ONE CAPSULE BY MOUTH THREE TIMES A ACTIVE DAY Indication: UNKNOWN 9) OMEPRAZOLE 20MG EC CAP TAKE ONE CAPSULE BY MOUTH EVERY ACTIVE MORNING 30 MINUTES BEFORE BREAKFAST Indication: FOR HEARTBURN 10) TIOTROPIUM 2.5MCG/ACTUAT 60D ORAL INHL INHALE 2 PUFFS BY ACTIVE MOUTH ONCE DAILY Indication: FOR CONTROLLER MEDICATION FOR ASTHMA 11) TRAZODONE HCL 50MG TAB TAKE TWO TO THREE TABLETS BY MOUTH AT ACTIVE BEDTIME NEEDED Indication: FOR SLEEP Active Non-VA Medications Status = 1) Non-VA ASPIRIN 81MG EC TAB 81MG BY MOUTH ONCE DAILY ACTIVE 2) Non-VA CLOPIDOGREL BISULFATE 75MG TAB 75MG BY MOUTH ACTIVE 3) Non-VA LOSARTAN 50MG TAB 50MG BY MOUTH ONCE DAILY ACTIVE 14 Total Medications Allergies: Patient has answered NKA All medications including those prescribed by outside VA's, community providers, and all OTC meds were reviewed and reconciled with patient to the best of their abilities. This 88 year old MALE is seen today for annual CEE JOSE CARLOS: 10/03/23 Chief Complaint: Tearing eyes quite often and glares from the sun when driving OHx: 1. Low risk POAG suspect secondary to moderate cupping OU 2. Pseudophakia OU 3. RE 4. KIERRA OU Ocular Medications: Restasis once a day (-) Pain: (-) SONG: (-) Diplopia: (-) Flashes: (-) Floaters: (-) Amaurosis Fugax/Tia's: (-) Eye Injury: (-) Eye Surgery: (-) TBI FOHx: (-) Glaucoma/ARMD/Blindness VITALS (most recent, as listed in the electronic record): B/P: 139/72 (01/20/2024 11:43) Pulse: 73 (01/20/2024 11:43) Temperature: 98.3 F [36.8 C] (01/20/2024 11:43) Weight: 170.6 lb [77.38 kg] (01/20/2024 11:43) Height: 65 in [165.1 cm] (01/20/2024 11:43) BMI: BMI: 28.4 PERTINENT LABS: HEMOGLOBIN A1C TREND Collection DT Spec HGBA1c 12/12/2022 09:03 BLOOD 5.9 H 12/13/2021 08:05 BLOOD 5.6 12/20/2020 09:51 BLOOD 5.9 H 09/28/2019 08:03 BLOOD 6.1 H 04/13/2019 07:53 BLOOD 6.2 H (-) Smoker/Length of Time/PPD: Current Rx with last BCVA: OD: [place]-1.25 x093 20/20 OS: -0.25-1.00 x100 20/25 Add:+2.75 DVA ( )sc ( x )cc - phoropter OD: 20/ OS: 20/ Pupils: PERRL (-)APD EOMs: SAFE OU, (-)Pain/Diplopia CVF (facial, peripheral): FTFC OU Subjective Refraction: OD: 20/ OS: 20/ Add: 20/ All the above performed by student, reviewed by attending Anterior segment: Performed by student, repeated by attending Lids: Heavy dermatochalasis, MGD OU Conj: Pinguecula T OU Cornea: clear (-)k spindle OU AC: D&Q OU Angles: 4x4 OU Iris: flat and clear (-)NVI/TID OU Lens: clear (-)PXF OU Tonometry: Performed by student, reviewed by attending [ ] GAT [ x] [place] OD 14 mmHg OS 17 mmHg Time: Last IOP OD: 14 OS: 15 Pachymetry: OD: 536 OS: 539 Fundus exam: Dilated: xxxx Non dilated: Dilating Drops: 1GTT 1 % Tropicamide OU & 1GTT 2.5% Phenylephrine OU (Pt. ed. on side effects, dilation warning given and verbal consent obtained) Patient advised not to drive if they feel they have any symptoms which could affect their ability to drive safely. Patient advised not to engage in any activities which could put themselves or others at risk if they feel they have any symptoms which could affect their ability to perform those activities safely. Performed by student, repeated by attending Vit: PVD OU C/D: 0.80 OU with vessels bayonette superiorly (-)Drance heme Macula: flat and clear OU PPole: 1 patch of coalesce drusen temp to macula OD A/V: 2/3 Vessels: normal caliber OU Periph: flat and intact (-) holes, tears, detachments 360 OU (+) chorioretinal scar inf temporally OS Assessment/Plan: 1. Mild primary open-angle OS and high risk open-angle glaucoma suspect OD secondary to moderate cupping and progressive thinning OS. No evidence of pigment dispersion or pseudoexfoliation OU. No known family history of glaucoma. - IOP today: 14/17mmHg - Pachymetry: 536/539um thinner than average CTT - Imaging taken today: RNFL OCT shows progressive thinning of RNFL at superior and inferior temporal OS - Ordered Latanoprost 1gtt QHS OS - Pt ed re today's findings - Pt ed re glaucoma as well as the natural history of this diagnosis including prognosis. - Stress importance of continued follow-up appointments - RTC 3mo with IOP check and HVF 24-2 2. Pseudophakia OU - PCIOLs appear well centered and stable today - Pt. ed. on findings - Monitor 3. Dry eyes OU; sympto - Pt. ed. on todays findings - Ordering Restasis - Ed. pt. to use BID-QID OU even on days when eyes are not feeling dry - Monitor 4. Regular astigmatism and presbyopia OU - Pt. ed. on todays findings - Is going to pick out new frames for bifocals - Monitor Return to Clinic 3mo or earlier PRN [place] Education: After discussion and answering all 's questions, [place] demonstrated and verbalized understanding of diagnosis and treatment. Yes [x] No [ ] Patient Education: Glaucoma: Patient was educated regarding glaucoma/glaucoma suspect as well as the natural history of this diagnosis including prognosis. Stress importance of compliance and persistency with glaucoma medication when prescribed, timely follow up as well as the role of ancillary testing. Exclusion criteria for ancillary testing include significantly reduced acuity, mental status changes affecting the patient's ability to attend to the test or other physical limitations that would prohibit the patient's ability to participate in testing. Medication Reconciliation: Outpatient: Has the patient been taking medications as documented in the EMLR? YES: The patient has been taking medications as documented in the EMLR. Essential Medication List for Review used to complete this medication reconciliation. INCLUDED IN THIS LIST: Alphabetical list of active outpatient prescriptions dispensed from this [place] (local) and dispensed from another [place] or [facility] facility (remote) as well as inpatient orders (local, pending and active), local clinic medications, locally documented non-VA medications, and local prescriptions that have or been discontinued in the past 90 days. - All changes in medications, including all non-VA/Herbal/OTC medications were entered into CPRS. - If there were any medications the patient should no longer take, they were discontinued. - The patient/caregiver was instructed to update this list, discard old lists, and take this list to the next appointment, whether with a VA or non-VA provider. /darcie/ DANYEL VIGIL OD STAFF BOARDING KENNEL OR CATTERY OPERATOR Signed: 10/08/2024 12:02 for STEVE FERGUSON OPTOMETRY STUDENT /darcie/ DANYEL VIGIL OD STAFF BOARDING KENNEL OR CATTERY OPERATOR Cosigned: 10/08/2024 12:02 DANYEL VIGIL [place] [facility] [place] [facility]
--- OUTSIDE RECORDS SUMMARY | 2025-01-19 09:30 | XMS_ITS | Encounter Summary ---
Author Organization [facility] Address [address] [place] [address] Care Team Providers Care Research Methods Instructor Name Role Phone Cherri Wise MD Primary Care Provider [phone] Reason for Referral * Consultation (Routine) - Authorized Specialty Diagnoses / Procedures Referred By Sina nevarez Referred To Contact Cardiology Diagnoses Aortic atherosclerosis (CMS/HCC) Cherri Wise MD [address] [facility] [address] [place] [address] Phone: tel: fax: [facility] - [facility] [address] [facility] [address] [place] [address] Phone: tel: fax: Referral ID Status Reason Start Date Expiration Date Visits Requested Visits Authorized [id number] Authorized Specialty Services Required 12/01/2024 12/01/2025 12 12 Reason for Visit * Reason Onset Date Comments Frandy - Referral 11/30/2024 Encounter Details Date Type Department Care Team ([facility] st Contact Info) Description 11/30/2024 Telephone Internal Medicine - [place] [address] [place] [address] Cherri Wise MD [address] [place] [address] Frandy - Referral Social History Tobacco Use Types Packs/Day Years [...] as of this encounter Progress Notes * Cehrri Wise MD - 12/01/2024 10:37 PM EST Ref placed * Edna Ashley MA - 11/30/2024 3:04 PM EST Requesting referral for cariology for Atherosclerosis of aorta * Beba Diaz - 11/30/2024 11:52 AM EST Referral Request: What insurance does the patient have today? [employer] [id number] Referrals cannot be processed if the insurance is not accurate. If the insurance listed above in red is NO BILLING INFORMATION FOUND FOR THIS ENCOUTNER The patients correct insurance must be obtained and registered in [facility] or their referral can not be processed. Is this a retro request? Yes. If yes for what date of service do you need the retro referral? 11/18/24 Who is calling to request this referral? Faxed request If the caller is not the patient, what is their name? Specialist's office Ask the patient WHO referred them to this specialty: Patient self referred FIRST and LAST NAME of SPECIALIST PATIENT is seeing: SERGIO MARIANO MD - NPI #[id number] What specialty is this? Cardiology DIAGNOSIS Patient is being seen for (Not a body part or a procedure): I70.0 Have you seen this SPECIALIST for this PROBLEM/DX before? If YES, when? Yes. November 2023 Have you checked REVIEW or the APPT DESK to see if this referral has already been done or has visits left? yes Is this visit: Follow Up Address of Specialist: [address] [facility], [address], [facility] [address] Phone # of Specialist: [phone] Fax #: (if applicable): [phone] Does patient have an appointment scheduled?: yes Date of appointment- (including a retro-request): 11/18/24 Is this appointment related to: Not MVA, worker compensation, or surgery related documented in this encounter Plan of Treatment Upcoming Encounters Date Type Department Care Team (Late st Contact Info) Description 02/01/2025 11:00 AM EDT Ancillary Procedure [facility] - [facility] [address] [place] [id number] 05/19/2025 8:30 AM EDT Office Visit Internal Medicine - [place] [address] [place] [phone] Cherri Wise MD [address] [facility] [address] [place] [phone] 10/05/2025 9:30 AM EST Ancillary Procedure [facility] - [facility] [address] [place] [id number] Scheduled Referrals Name Type Priority Associated Diagnoses Orde r Schedule Ambulatory referral to Cardiology Outpatient Referral Routine Aortic atherosclerosis (CMS/HCC) 1 Occurrences starting 12/01/2024 until 12/01/2025 documented as of this encounter Visit Diagnoses Diagnosis Aortic atherosclerosis (CMS/HCC)- Primary Atherosclerosis of aorta Encounter for adjustment or management of cardiac device documented in this encounter Care Teams Research Methods Instructor Relationship Specialty Start Date End Date Cherri Wise MD [address] [address] PCP - General Internal Medicine 11/26/24 documented as of this encounter
--- OUTSIDE RECORDS SUMMARY | 2025-01-19 09:30 | XMS_ITS | Encounter Summary ---
Author Name [facility] [place] [facility] [place] Address [address] [place] [address] Care Team Providers Care Rhinologist Name Role Phone DEVAN MARIE Primary Care Provider Brayden simon Insurance Providers: [...] Diamond's Name Patient's Relationship to Policy Diamond [facility] MCR (WNR) MEDICARE ADVANTAGE [facility] (WNR) 2005 [facility] [id number] PATIENT Selected Encounter This section includes the information on record at [place] for the Encounter. Date/Time Encounter Type Encounter Description Reason Provider Source Oct 08, 2024 11:45 AM [facility] OPTIC NERVE OPTOMETRY ICD-10-CM 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, right eye, mild stage DANYEL VIGIL Blanca Encounter Template Text not used by [place] Assessments - Encounter Diagnoses This section includes the primary and secondary diagnoses documented for the Encounter. Date/Time Primary/Secondary Diagnosis Diagnosis Name Provider Source Oct 18, 2024 12:57 PM PRIMARY Primary open-angle glaucoma, right eye, mild stage DANYEL VIGIL [facility] Plan of Treatment: Future Appointments (+ 6 months) and Future Tests (+/- 45 days) The Plan of Treatment section includes future care activities for the patient from all [place] treatmentfacilities. This section includes future appointments and future orders which are active, pending or scheduled. Future Appointments This section includes appointments that were scheduled to occur 6 months from the date of the Encounter, up to a maximum of 20 appointments. The data comes from all [place] treatment facilities. Appointment Date/Time Appointment Type Appointme nt Facility Name Jan 19, 2025 11:30 AM AMBULATORY - MEDICINE [facility] [place] [facility] Feb 15, 2025 01:00 PM AMBULATORY - PSYCHIATRY [facility] Advance Directives: All historical and current Section [...] Jan 26, 2018 ADVANCE DIRECTIVE TAI CURTIS [facility] Encounter Notes: All associated encounter notes This section contains the clinical notes associated to the Encounter. Date/Time Encounter Note(s) Provider Source Oct 08, 2024 11:29 AM OPTOMETRY CONSULT: LOCAL TITLE: CONSULT REPORT/OPTOMETRY OCT STANDARD TITLE: OPTOMETRY CONSULT DATE OF NOTE: OCT 08, 2024@11:29 ENTRY DATE: OCT 08, 2024@11:29:16 AUTHOR: STEVE FERGUSON COSIGNER: DANYEL VIGIL URGENCY: STATUS: COMPLETED RNFL OCT report: RNFL OCT reviewed for patient with low risk primary open-angle glaucoma suspect OU OD Signal strength: 8/10 OD: average c/d 0.74, vertical c/d 0.67, disc area 1.84 mm^2. Average RNFL thickness 95 microns. Mild thinning at 1 o'clock OS Signal strength: 8/10 OS: average c/d 0.78, vertical c/d 0.75, disc area 2.05 mm^2. Average RNFL thickness 76 microns. Mild thinning at 12 o'clock A/P: Mild primary open-angle OS and high risk open-angle glaucoma suspect OU. Moderate cupping with thinner than average CCT. No evidence of pigment dispersion or pseudoexfoliation OU. No known family history of glaucoma. - RNFL OCT shows progressive thinning of RNFL at superior and inferior temporal OS from the last 3 scans; stable OD - Ordered Latanoprost 1gtt QHS OS - Pt ed re today's findings - Pt ed re glaucoma as well as the natural history of this diagnosis including prognosis. - Stress importance of continued follow-up appointments - RTC 3mo with IOP check and HVF 24-2 Pachymetry: thinner than average OU OD: 536 um OS: 539 um /es/ STEVE FERGUSON OPTOMETRY STUDENT Signed: 10/08/2024 12:02 /darcie/ DANYEL VIGIL OD STAFF HAND SUTURE WINDER Cosigned: 10/08/2024 12:02 STEVE FERGUSON [place] [facility]
--- OUTSIDE RECORDS SUMMARY | 2025-01-19 09:30 | XMS_ITS ---
Author Name [facility] [place] [facility] [place] [facility] [place] Address [address] [place] [address] Care Team Providers Care Environmental Services Specialist Name Role Phone FRANK DEVAN Primary Care [...] Diamond's Name Patient's Relationship to Policy Diamond [facility] HEALTH PLAN MCR (WNR) MEDICARE ADVANTAGE [facility] (WNR) 2005 [facility] [id number] PATIENT Selected Encounter This section includes the information on record at [place] for the Encounter. Date/Time Encounter Type Encounter Description Reason Pro vider Source Jan 06, 2025 02:10 PM Outpatient Encounter PRIMARY CARE/MEDICINE IHE Encounter Template Text not used by [place] Plan of Treatment: Future Appointments (+ 6 months) and Future Tests (+/- 45 days) The Plan of Treatment section includes future care activities for the patient from all [place] treatmentfacilities. This section includes future appointments and future orders which are active, pending or scheduled. Future Appointments This section includes appointments that were scheduled to occur 6 months from the date of the Encounter, up to a maximum of 20 appointments. The data comes from all [place] treatment facilities. Appointment Date/Time Appointment Type Appointme nt Facility Name Jan 19, 2025 11:30 AM AMBULATORY - [facility] Feb 15, 2025 01:00 PM AMBULATORY - PSYCHIATRY [facility] Jun 01, 2025 10:00 AM AM[place]UL[place]ORY - MEDICINE [place] [facility] Jun 01, 2025 10:30 AM [facility] Advance Directives: All historical and current Section Date Range: From patient's date of to the date document was created. This section includes ALL of a patient's completed or amended [place] Advance and Rescinded Directives. The entries below indicate that a directive exists for the patient, but an actual copy is not included with this document. The data comes from all [place] facilities. Date Advance Directives Provider Source Jan 26, 2018 ADVANCE DIRECTIVE TAI CURTIS [facility] Encounter Notes: All associated encounter notes This section contains the clinical notes associated to the Encounter. Date/Time Encounter Note(s) Provider Source Jan 06, 2025 02:10 PM MEDICATION MGT NOT E: LOCAL TITLE: OUTPATIENT MEDICATION REQUEST STANDARD TITLE: MEDICATION MGT NOTE DATE OF NOTE: JAN 06, 2025@14:10 ENTRY DATE: JAN 06, 2025@14:10:33 AUTHOR: BRENDA BERGER EXP COSIGNER: URGENCY: STATUS: COMPLETED OUTPATIENT MEDICATION REQUEST Has ADDENDA Medication Request Date of Request: Jan Please renew and mail. FLUTICASONE/VILANTEROL (BREO) INHL,ORAL FLUTIC 100/VILANTEROL 25MCG 30D ORAL INH INHALE 1 PUFF BY MOUTH ONCE DAILY (RINSE MOUTH AFTER USE) FOR ASTHMA Quantity: 1 Refills: 3 Indication: FOR CONTROLLER MEDICATION FOR ASTHMA /darcie/ BRENDA BERGER RN REGISTERED NURSE Signed: 01/06/2025 14:10 01/12/2025 ADDENDUM STATUS: COMPLETED Awaiting script from Pulmonary office. /bibiana BERGER RN REGISTERED NURSE Signed: 01/12/2025 10:59 BRENDA BERGER
--- OUTSIDE RECORDS SUMMARY | 2025-01-19 09:31 | XMS_ITS ---
Author Name [facility] [place] [facility] [place] Address [address] [place] [address] Care Team Providers Care Risk Compliance Analyst Name Role Phone FRANK DEVAN Primary Care [...] Diamond's Name Patient's Relationship to Policy Diamond [facility] HEALTH PLAN MCR (WNR) MEDICARE ADVANTAGE [facility] (WNR) 2005 [facility] [id number] PATIENT Selected Encounter This section includes the information on record at [place] for the Encounter. Date/Time Encounter Type Encounter Description Reason Pro vider Source Jan 12, 2025 12:38 PM Outpatient Encounter PRIMARY CARE/MEDICINE IHE Encounter Template Text not used by [place] Plan of Treatment: Future Appointments (+ 6 months) and Future Tests (+/- 45 days) The Plan of Treatment section includes future care activities for the patient from all [place] treatmentfacilities. This section includes future appointments and future orders which are active, pending or scheduled. Future Appointments This section includes appointments that were scheduled to occur 6 months from the date of the Encounter, up to a maximum of 20 appointments. The data comes from all [place] treatment facilities. Appointment Date/Time Appointment Type Appointme nt Facility Name Jan 19, 2025 11:30 AM [facility] Feb 15, 2025 01:00 PM AMBULATORY - PSYCHIATRY [facility] Jun 01, 2025 10:00 AM [place]INE [place] [facility] Jun 01, 2025 10:30 AM [facility] Advance Directives: All historical and current Section Date Range: From patient's date of to the date document was created. This section includes ALL of a patient's completed or amended [place] Advance and Rescinded Directives. The entries below indicate that a directive exists for the patient, but an actual copy is not included with this document. The data comes from all [place] facilities. Date Advance Directives Provider Source Jan 26, 2018 ADVANCE DIRECTIVE TAI CURTIS [facility] Encounter Notes: All associated encounter notes This section contains the clinical notes associated to the Encounter. Date/Time Encounter Note(s) Provider Source Jan 12, 2025 12:39 PM NURSING ADMINISTRA TIVE NOTE: LOCAL TITLE: NON-VA PRESCRIPTION STANDARD TITLE: NURSING ADMINISTRATIVE NOTE DATE OF NOTE: JAN 12, 2025@12:39 ENTRY DATE: JAN 12, 2025@12:39:09 AUTHOR: BRENDA BERGER EXP COSIGNER: URGENCY: STATUS: COMPLETED NON VA Prescription Date: Jan Prescriber Name/Tel/Fax : Glynn Olson MD PH: [phone] RX : Fluticasone furoate-vilanterol 100-25 mcg/dose blister with device Sig: Inhale 1 puff daily QTY: 60 Refills: 3 DOSAGE CHANGE: NO PICK-UP JACI DELGADO Nov /es/ BRENDA BERGER RN REGISTERED NURSE Signed: 01/12/2025 12:39 Receipt Acknowledged By: 01/12/2025 16:17 /es/ DEVAN MARIE MD Primary Care Physician BRENDA BERGER
--- OUTSIDE RECORDS SUMMARY | 2025-01-19 09:31 | XMS_ITS | Clinical Summary ---
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 Active fluticasone furoate-vilanteroL (BREO ELLIPTA) 100-25 mcg/dose inhaler 07/27/20 18 Active gabapentin (NEURONTIN) 300 mg capsule TAKE 1 CAPSULE BY MOUTH THREE TIMES DAILY 06/24/20 24 Active ipratropium-albute roL (DUONEB) 0.5-2.5 mg/3 mL nebulizer solution as needed. 07/22/20 20 Active nitroglycerin (NITROSTAT) 0.[address] 1 Tablet under the tongue every 5 minutes as needed for Chest pain. 07/21/20 24 025 Active miscellaneous medical supply misc Oxygen Historical (HISTORICAL OXYGEN) Inhale 2 L into the lungs. night Active tiotropium (Spiriva Respimat) 2.5 mcg/actuation inhalation spray INHALE 2 PUFFS BY MOUTH ONCE DAILY 09/14/20 15 Active traZODone (DESYREL) 50 mg tablet 2 Tablets at bedtime. 08/29/20 20 Active omeprazole (PriLOSEC) [address] capsule Take 1 capsule (20 mg total) by mouth 1 (one) time each day. Do not crush or chew. 60 capsule 2 10/05/20 24 Active atorvastatin (LIPITOR) 20 mg tabletIndications: Mixed hyperlipidemia Take 1 tablet (20 mg total) by mouth 1 (one) time each day. 30 each 5 11/26/19 25 025 Active isosorbide mononitrate (IMDUR) 30 mg 24 hr tablet TAKE 1 TABLET BY MOUTH DAILY 90 tablet 2 12/03/19 25 Active furosemide (LASIX) 20 mg tablet Take 1 tablet (20 mg total) by mouth 1 (one) time each day if needed (leg/ankle swelling). 90 tablet 1 12/02/19 25 Active carvediloL (COREG) 3.125 mg tablet Take 1 tablet (3.125 mg total) by mouth 2 (two) times a day with meals. 12/19/19 25 025 Active clopidogreL (PLAVIX) 75 mg tablet Take 1 tablet (75 mg total) by mouth 1 (one) time each day. 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 The patient offers no concerning symptoms and there is no significant murmur noted on exam today to suggest otherwise. We will be obtaining an echocardiogram Orders: Transthoracic echocardiogram (TTE) complete with PRN contrast, bubble, strain, and 3D order panel; Future Complete heart block 07/21/2024 Assessment & Plan (01/06/2025 5:37 PM EST): Orders: Comprehensive metabolic panel; Future Lipid panel with reflex to direct LDL; Future Complete blood count; Future Vitamin B12; Future Magnesium; Future Assessment & Plan (12/19/2024 3:02 PM EST): Now status post pacemaker implantation; continue with remote and Orders: ECG 12 lead Chest pain 07/15/2024 Fatigue 07/15/2024 Unilateral weakness 08/20/2022 Coronary artery disease invo lving [place] coronary artery of [place] heart without angina pectoris 05/10/2021 Overview (09/29/2024): Last Assessment & Plan: Reviewed cardiac catheterization findings, we are medically managing. We reviewed how to take nitroglycerin, or when to call our office with concerns, and when to seek emergency attention. Symptoms seem stable on AIMEE Assessment & Plan (12/19/2024 3:02 PM EST): The patient offers no symptoms concerning for [...] were to faint. Orders: ECG 12 lead Phimosis 03/29/2021 Anemia 05/22/2018 Assessment & Plan (01/06/2025 5:37 PM EST): Orders: Comprehensive metabolic panel; Future Lipid panel with reflex to direct LDL; Future Complete blood count; Future Vitamin B12; Future Magnesium; Future Chronic low back pain 05/22/2018 Gout 04/13/2018 Hypertension 04/13/2018 Overview (09/29/2024): Last Assessment & Plan: Running on the low side, discontinue amlodipine. He will return for blood pressure check in 2 weeks. Also reviewed the importance of staying hydrated. Assessment & Plan (01/06/2025 5:37 PM EST): Orders: Comprehensive metabolic panel; Future Lipid panel with reflex to direct LDL; Future Complete blood count; Future Vitamin B12; Future Magnesium; Future Assessment & Plan (12/19/2024 3:02 PM EST): Previously hypertensive on multiple antihypertensive agents, now [...] with carvedilol 3.125 mg twice daily for benefit of both his coronary artery disease as well as heart failure. They will continue to monitor heart rate and blood pressure at home approximately 1 to 2 hours after morning medications, relaying these readings to us at a blood pressure check with nursing in approximately 2 weeks at which time we will continue to readdress this. They will call sooner for any worsening or persistent symptoms despite these medication changes. It is possible that his COVID diagnosis was unknowingly contributing to hypotension due to inadequate hydration and that his dizziness may have been related to falling ill with COVID or not sleeping well as he describes today. Nevertheless, at 89 years old, we want to decrease the risk of falls as much as possible. We will continue to readdress this as indicated. Orders: ECG 12 lead Mixed hyperlipidemia 04/13/2018 Overview (09/29/2024): Last Assessment & Plan: Last LDL is from . Continue statin. Assessment & Plan (01/06/2025 5:37 PM EST): Orders: Comprehensive metabolic panel; Future Lipid panel with reflex to direct LDL; Future Complete blood count; Future Vitamin B12; Future Magnesium; Future Assessment & Plan (12/19/2024 3:02 PM EST): LDL goal for this patient was a history of coronary artery disease is less than 70; his most recent lipid panel was completed in 12/2023 revealing an LDL of 81. In light of his advanced age, continue atorvastatin 20 mg daily. Pacemaker 04/13/2018 Overview (09/29/2024): Last Assessment & Plan: Last device check is from November 2021 which reveals normal device function, no V HR episodes, 2 AHR episodes, EGM suggestive of PAT, longest 14 beats, patient was asymptomatic. 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 Continue BB, ARB, diuretic. Reviewed signs and symptoms of heart failure and educated regarding monitoring weight, diet, and fluid intake. If there is a weight gain of 3 pounds in one day or 5 pounds in a week please call our office or seek medical attention if necessary. Assessment & Plan (12/19/2024 3:02 PM EST): As above, the patient offers no symptoms [...] the patient to call if they develop worsening symptoms of heart failure such as increased shortness of breath, new or worsening cough, increased swelling in the legs or ankles, or weight gain of more than 2 pounds in one day or 4 pounds in one week. Orders: Transthoracic echocardiogram (TTE) complete with PRN contrast, bubble, strain, and 3D order panel; Future Fatty liver 09/20/2016 Aortic atherosclerosis 03/22/2016 Overview (09/29/2024): Comments: 03/01/15 Thoracic aorta calcification Assessment & Plan (12/19/2024 3:02 PM EST): Orders: Ambulatory referral to Cardiology Encounters Date Type Department Care Team Description 01/06/2025 12:45 PM EST Office Visit Internal Medicine - [place] [address] [place] [id number] Cherri Wise MD Primary hypertension (Primary Dx); Mixed hyperlipidemia; Complete heart block (CMS/HCC); Anemia, unspecified type; Encounter for subsequent annual wellness visit (AWV) in Medicare patient 01/06/2025 9:30 AM EST Clinical Support [facility] - [address] [place] [address] 12/17/2024 11:10 AM EST Office Visit [facility] - [address] [place] [address] Gail Haro NP Primary hypertension (Primary Dx); Coronary artery disease involving [place] coronary artery of [place] heart without angina pectoris; 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); Aortic atherosclerosis (CMS/HCC); Mixed hyperlipidemia; Complete heart block (CMS/HCC); Pacemaker; Status post transcatheter aortic valve replacement; Dizziness 12/16/2024 2:15 PM EST Office Visit Internal Medicine [facility] [address] [place] [id number] Bryan Perez MD Congestive heart failure, unspecified HF chronicity, unspecified heart failure type (CMS/HCC) (Primary Dx); Coronary artery disease involving [place] coronary artery of [place] heart without angina pectoris; Primary hypertension 12/07/2024 9:20 PM EST Ancillary Procedure [facility] - [address] [place] [address] 12/02/2024 3:15 PM EST Office Visit Internal Medicine [facility] [address] [place] [address] Bryan Perez MD Congestive heart failure, unspecified HF chronicity, unspecified heart failure type (CMS/HCC) (Primary Dx); Coronary artery disease involving [place] coronary artery of [place] heart without angina pectoris; Orthostatic hypotension; Primary hypertension 12/02/2024 Telephone [facility] - [address] [place] [address] Alfonso Tineo MD medication (Medication ) 11/30/2024 Telephone Internal Medicine [facility] [address] [place] [address] Cherri Wise MD [place] - Referral 11/30/2024 Telephone Internal Medicine [facility] [address] [place] [address] Cherri Wise MD 11/30/2024 Telephone [facility] - [address] [place] [address] Alfonso Tineo MD medication 11/29/2024 9:00 AM EST Ancillary Procedure [facility] - [address] [place] [address] Encounter for adjustment or management of cardiac device 11/29/2024 Telephone Internal Medicine [facility] [address] [place] [address] Cherri Wise MD [place]: Call back 11/26/2024 3:00 PM EST Office Visit Internal Medicine [facility] [address] [place] [address] Joslyn Zamudio NP Orthostatic hypotension (Primary Dx); Mixed hyperlipidemia 11/26/2024 Telephone Internal Medicine [facility] [address] [place] [address] Cherri Wise MD Faxed Order (Valarie @ [facility]) 11/25/2024 Telephone Internal Medicine - [place] [address] [place] [address] Cherri Wise MD Dizziness (/) from Last 3 Months Immunizations Name Administration Dates Next Due Pneumococcal conjugate 13 va lent (Prevnar 13, PCV13) 2mo and older 08/15/2016 Td Tetanus diptheria (Tdvax) 7yo and older 11/03 Tdap Tetanus diptheria acell ular pertussis (Boostrix; Adacel) 7yo and older 06/03/2016 Surgical History Surgery Date Site/Laterality Comments PACEMAKER IMPLANT PROCEDURE: HISTORICAL PACEMAKER TONSILLECTOMY PROCEDURE: HISTORICAL TONSILLECTOMY HEMORRHOID SURGERY PROCEDURE: DESTRUCTION OF HEMORRHOIDS HERNIA REPAIR PROCEDURE: HISTORICAL HERNIA REPAIR/UMB; COMMENT: ? hernia repair UPPER GASTROINTESTINAL ENDOSCOPY PROCEDURE: MS UPPER GI ENDOSCOPY PERFORMED COLONOSCOPY PROCEDURE: HISTORICAL COLONOSCOPY CATARACT EXTRACTION PROCEDURE: HISTORICAL CATARACT REMOVAL Medical History Medical History Date Comments Anemia 05/22/2018 DX:Anemia Aortic atherosclerosis (CMS/HCC) 03/22/2016 DX:Aortic atherosclerosis (HCC); COMMENT: Comments: 03/01/15 Thoracic aorta calcification Cardiac murmur 06/23/2017 DX:Cardiac murmu r Chronic low back pain 05/22/2018 DX:Chronic low back pain Chronic obstructive pulmonar y disease (CMS/HCC) 03/31/2018 DX:Chronic obstructive pulmo nary disease (HCC) Congestive heart failure (CH F) (CMS/HCC) 11/20/2016 DX:Congestive heart failure (CHF) (HCC) Diverticulosis 02/13/2018 DX:Diverticulosi s Dyspnea 03/31/2018 DX:Dyspnea Fatty liver 09/20/2016 DX:Fatty liver Gout 04/13/2018 DX:Gout History of colonic polyps 10/02/2016 DX:His tory of colonic polyps Hyperlipidemia 04/13/2018 DX:Hyperlipidemi a Hypertension 04/13/2018 DX:Hypertension Pacemaker 04/13/2018 DX:Pacemaker Pulmonary nodules 03/31/2018 DX:Pulmonary n odules Family History Medical History Relation Name Comments Other: Cancer Father Hypertension Mother stroke Relation Name Status Comments Father Mother Social History Tobacco Use Types Packs/Day Years [...] on file Sexual Orientation Not on file Obstetrics History Last Filed Vital Signs Vital Sign Reading Time Taken Comments Blood Pressure 112/76 01/06/2025 12:48 PM EST Pulse 84 01/06/2025 12:48 PM EST Temperature 36.3 ??C (97.3 ??F) 01/06/2025 12:[address] Respiratory Rate - - Oxygen Saturation 92% 01/06/2025 12:48 PM EST Inhaled Oxygen Concentration - - Weight 75.8 kg (167 lb) 01/06/2025 12:48 PM EST Height 170.2 cm (5' 7 ) 07/21/2024 1:42 PM EDT Body Mass Index 26.16 07/21/2024 1:42 PM EDT Plan of Treatment Upcoming Encounters Date Type Department Care Team (Late st Contact Info) Description 02/01/2025 11:00 AM EDT Ancillary Procedure [facility] - [facility] [address] [facility] [address] [place] [address] 05/19/2025 8:30 AM EDT Office Visit Internal Medicine - [place] [address] [facility] [address] [place] [phone] Cherri Wise MD [address] [facility] [address] [place] [address] 10/05/2025 9:30 AM EST Ancillary Procedure [facility] - [facility] [address] [facility] [address] [place] [address] Health Maintenance Due Date Last Done Comments Zoster Vaccines (1 of 2) 1985 RSV Immunization Patients 60+ Years Old (1 - 1-dose 75+ series) 2010 Social Influencers of Health Screening 10/12/2022 COVID-19 Vaccine (2 season) 2024 01/06/2022 Influenza Vaccine (#1) 2024 2, 12/04/2021, 10/21/2018, Additional history exists Depression Screening 01/06/2026 01/06/2025 Falls Risk Assessment 01/06/2026 01/06/2025 Medicare Annual Wellness Visit 01/06/2026 01/06/2025 Hypertension/CHF/CAD Annual BMP Blood Test 01/12/2026 01/12/2025, 06/23/2024, 06/23/2024 DTaP,Tdap,and Td Vaccines (3 - Td or Tdap) 06/03/2026 06/03/2016, 2006 Cholesterol Screening (Lipid Panel) 01/12/2030 01/12/2025, 12/18/2023 Pneumococcal Vaccine: 50+ Years Completed 03/17/2018, 08/15/2016 HIB Vaccines Aged Out No longer eligi ble based on patient's age to complete this topic HPV Vaccines Aged Out No longer eligi ble based on patient's age to complete this topic Hepatitis A Vaccines Aged Out No long er eligible based on patient's age to complete this topic Hepatitis B Vaccines Aged Out No long er eligible based on patient's age to complete this topic IPV Vaccines Aged Out No longer eligi ble based on patient's age to complete this topic MMR Vaccines Aged Out No longer eligi ble based on patient's age to complete this topic Meningococcal ACWY Vaccine Aged Out N o longer eligible based on patient's age to complete this topic Meningococcal B Vacine Aged Out No lo nger eligible based on patient's age to complete this topic RSV Immunization Patients Under 20 months Aged Out No longer eligible based on patient's age to complete this topic Varicella Vaccines Aged Out No longer eligible based on patient's age to complete this topic Medical Devices Implanted Type Area Wallet Assembler Device Identifier Shelf Expiration Date Model / Serial / Lot Bsci-[id number] Implanted:06/2018 (Quantity not on file) Cardiac Pacemaker [employer] MGMT [id number] / [id number] / Procedures Procedure Name Priority Date/Time Associated Diagnosis Comments COMPREHENSIVE METABOLIC PANEL Routine 01/12/2025 10:05 AM EDT Primary hypertension Mixed hyperlipidemia Complete heart block (CMS/HCC) Anemia, unspecified type LIPID PANEL WITH REFLEX TO DIRECT LDL Routine 01/12/2025 10:05 AM EDT Primary hypertension Mixed hyperlipidemia Complete heart block (CMS/HCC) Anemia, unspecified type COMPLETE BLOOD COUNT Routine 01/12/2025 10:05 AM EDT Primary hypertension Mixed hyperlipidemia Complete heart block (CMS/HCC) Anemia, unspecified type VITAMIN B12 Routine 01/12/2025 10:05 AM EDT Primary hypertension Mixed hyperlipidemia Complete heart block (CMS/HCC) Anemia, unspecified type MAGNESIUM Routine 01/12/2025 10:05 AM EDT Primary hypertension Mixed hyperlipidemia Complete heart block (CMS/HCC) Anemia, unspecified type ECG 12-LEAD Routine 12/19/2024 2:23 PM EST Primary hypertension Coronary artery disease involving [place] coronary artery of [place] heart without angina pectoris Complete heart block (CMS/HCC) Pacemaker CARDIAC DEVICE CHECK- REMOTE- MURJ Routine 12/07/2024 9:16 PM EST CARDIAC DEVICE CHECK- IN CLINIC- MURJ Routine 11/29/2024 9:00 AM EST Encounter for adjustment or management of cardiac device from Last 3 Months Results * Lipid panel with reflex to direct LDL (01/12/2025 10:05 AM EDT) [facility] Signature Cholesterol 118 0 - 200 mg/dL LAB CHEMISTRY METHOD 01/12/2025 12:50 PM EDT [facility] Triglycerides 109 0 - 150 mg/dL LAB CHEMISTRY METHOD 01/12/2025 12:50 PM EDT [facility] HDL 54 >=40 mg/dL LAB CHEMISTRY METHOD 01/12/2025 12:50 PM T [facility] LDL Calculated 42 0 - 100 mg/dL LAB CHEMISTRY METHOD 01/12/2025 12:50 PM EDT [facility] VLDL Cholesterol Papa 21.8 mg/dL LAB CHEMISTRY METHOD 01/12/2025 12:50 PM EDT [facility] Non HDL Chol. (LDL+VLDL) 64 <145 mg/dL LAB CHEMISTRY METHOD 01/12/2025 12:50 PM EDT [facility] Chol/HDL Ratio 2.2 0.0 - 4.4 LAB CHEMISTRY METHOD 01/12/2025 12:50 PM EDT [facility] Blood Venous blood specimen / Unknown Venipuncture / Unknown 01/12/2025 10:05 AM EDT 01/12/2025 10:05 AM EDT us Cherri Wise MD LAB BLOOD ORDERABLES Final Res ult [facility] [address] [place] [address], [place] [phone] * (ABNORMAL) Complete blood count (01/12/2025 10:05 AM EDT) WBC 5.5 4.8 - 10.8 K/mcL LAB HEMETOLOGY METHOD 01/12/2025 12:19 PM [facility] RBC 3.90(L) 4.50 - 5.50 M/mcL LAB HEMETOLOGY METHOD 01/12/2025 12:19 PM [facility] Hemoglobin 12.4(L) 13.5 - 17.5 g/dL LAB HEMETOLOGY METHOD 01/12/2025 12:19 PM [facility] Hematocrit 38.5(L) 42.0 - 54.0 % LAB HEMETOLOGY METHOD 01/12/2025 12:19 PM [facility] MCV 98.2(H) 79.0 - 98.0 FL LAB HEMETOLOGY METHOD 01/12/2025 12:19 PM EDT [facility] MCH 31.6 27.0 - 32.0 pcg LAB HEMETOLOGY METHOD 01/12/2025 12:19 PM EDT [facility] MCHC 32.2 32.0 - 37.0 g/dL LAB HEMETOLOGY METHOD 01/12/2025 12:19 PM EDT [facility] RDW 13.2 11.0 - 15.0 % LAB HEMETOLOGY METHOD 01/12/2025 12:19 PM EDT [facility] Platelets 146 130 - 400 K/mcL LAB HEMETOLOGY METHOD 01/12/2025 12:19 PM EDT [facility] MPV 11.5(H) 7.0 - 11.0 FL LAB HEMETOLOGY METHOD 01/12/2025 12:19 PM EDT [facility] NRBC 0.0 <1.0 % LAB HEMETOLOGY METHOD 01/12/2025 12:19 PM EDT [facility] NRBC Absolute 0.00 <0.10 K/mcL LAB HEMETOLOGY METHOD 01/12/2025 12:19 PM EDT [facility] Blood Venous blood specimen / Unknown Venipuncture / Unknown 01/12/2025 10:05 AM EDT 01/12/2025 10:05 AM EDT us Cherri Wise MD LAB BLOOD ORDERABLES Final Res ult [facility] [address] [place] [address], * Magnesium (01/12/2025 10:05 AM EDT) Magnesium 2.2 1.9 - 2.6 mg/dL LAB CHEMISTRY METHOD 01/12/2025 12:26 PM EDT [facility] Blood Venous blood specimen / Unknown Venipuncture / Unknown 01/12/2025 10:05 AM EDT 01/12/2025 10:05 AM EDT us Cherri Wise MD LAB BLOOD ORDERABLES Final Res ult [facility] [address] [place] [address], [place] [phone] * Vitamin B12 (01/12/2025 10:05 AM EDT) [facility] Vitamin B-12 445 250 - 900 pcg/mL LAB CHEMISTRY METHOD 01/12/2025 12:50 PM EDT [facility] Blood Venous blood specimen / Unknown Venipuncture / Unknown 01/12/2025 10:05 AM EDT 01/12/2025 10:05 AM EDT us Cherri Wise MD LAB BLOOD ORDERABLES Final Res ult Performing Organization Address City/[facility]/ZIP Co de Phone Number [facility] [address] [place] [address], [place] [phone] * (ABNORMAL) Comprehensive metabolic panel (01/12/2025 10:05 AM EDT) [facility] Sodium 141 133 - 145 mmol/L LAB CHEMISTRY METHOD 01/12/2025 12:50 PM EDT [facility] Potassium 4.2 3.5 - 5.5 mmol/L LAB CHEMISTRY METHOD 01/12/2025 12:50 PM EDT [facility] Chloride 104 96 - 110 mmol/L LAB CHEMISTRY METHOD 01/12/2025 12:50 PM EDT [facility] CO2 29 21 - 32 mmol/L LAB CHEMISTRY METHOD 01/12/2025 12:50 PM EDT [facility] Anion Gap 8 3 - 11 LAB CHEMISTRY METHOD 01/12/2025 12:50 PM EDT [facility] Glucose 114(H) 70 - 100 mg/dL LAB CHEMISTRY METHOD 01/12/2025 12:50 PM [facility] BUN 19 5 - 25 mg/dL LAB CHEMISTRY METHOD 01/12/2025 12:50 PM [facility] Creatinine 0.97 0.70 - 1.30 mg/dL LAB CHEMISTRY METHOD 01/12/2025 12:50 PM [facility] eGFR 75 >=60 mL/min/1. 73m2 LAB CHEMISTRY METHOD 01/12/2025 12:50 PM [facility] Comment:Calculation based on the??Chronic Kidney Disease Epidemiology Collaboration (CKD-EPI) equation refit??without adjustment for race. BUN/Creatinine Ratio 19.6 LAB CHEMISTRY METHOD 01/12/2025 12:50 PM [facility] Calcium 9.3 8.5 - 10.5 mg/dL LAB CHEMISTRY METHOD 01/12/2025 12:50 PM [facility] AST (SGOT) 34 10 - 42 unit/L LAB CHEMISTRY METHOD 01/12/2025 12:50 PM [facility] ALT (SGPT) 54 10 - 60 unit/L LAB CHEMISTRY METHOD 01/12/2025 12:50 PM [facility] Alkaline Phosphatase 79 42 - 121 unit/L LAB CHEMISTRY METHOD 01/12/2025 12:50 PM [facility] Total Protein 7.1 6.0 - 8.0 g/dL LAB CHEMISTRY METHOD 01/12/2025 12:50 PM [facility] Albumin 4.0 3.2 - 5.0 g/dL LAB CHEMISTRY METHOD 01/12/2025 12:50 PM [facility] Total Bilirubin 1.0 0.0 - 1.4 mg/dL LAB CHEMISTRY METHOD 01/12/2025 12:50 PM [facility] Blood Venous blood specimen / Unknown Venipuncture / Unknown 01/12/2025 10:05 AM EDT 01/12/2025 10:05 AM EDT Cherri Wise MD LAB BLOOD ORDERABLES Final Res ult [facility] [address] [place] [address], [place] [phone] * ECG 12 lead (12/19/2024 2:23 PM EST) Ventricular Rate ECG 76 BPM GEMUSE Atrial Rate 76 BPM GEMUSE P-R Interval 192 ms GEMUSE QRS Duration 174 ms GEMUSE Q-T Interval 474 ms GEMUSE QTc 533 ms GEMUSE P Wave [place] 12 degrees GEMUSE R [place] -82 degrees GEMUSE T [place] 82 degrees GEMUSE ECG Interpretation Atrial-sens ed ventricular -paced rhythm No change from previous ECG 07/21/2024 Confirmed by Tamia GRACE, KELLY ([id number]) on 12/21/2024 9:44:04 PM GEMUSE 12/17/2024 11:2 1 AM EST 12/21/2024 9:44 PM EST Gail Haro NP ECG ORDERABLES Edite d Result - Final GEMUSE * Cardiac device check - Remote- MURJ (12/07/2024 9:16 PM EST) Date Time Interrogation Session [id number] CV DEVICE CHECK Type Interrogation Session Remote Scheduled CV DEVICE CHECK Implantable Pulse Generator Wallet Assembler BSX CV DEVICE CHECK Implantable Pulse Generator Type IPG CV DEVICE CHECK Implantable Pulse Generator Model L111 CV DEVICE CHECK Implantable Pulse Generator Serial Number [id number] CV DEVICE CHECK Implantable Pulse Generator Implant Date 20171110 CV DEVICE CHECK Battery Remaining Percentage 15.00 CV DEVICE CHECK Battery Remaining Longevity 10.0 CV DEVICE CHECK Battery Status Middle of Service CV DEVICE CHECK Sukhdev Statistic RA Percent Paced 38.00 CV DEVICE CHECK Sukhdev Statistic RV Percent Paced 97.00 CV DEVICE CHECK Atrial Tachy Statistic AT/AF [place] Percent 0.00 CV DEVICE CHECK Lead Channel Sensing Intrinsic Amplitude 1.000 CV DEVICE CHECK Lead Channel Setting Sensing Sensitivity 0.25 CV DEVICE CHECK Lead Channel Impedance Value 601 CV DEVICE CHECK Lead Channel Pacing Threshold Amplitude 0.700 CV DEVICE CHECK Lead Channel Pacing Threshold Pulse Width 0.4 CV DEVICE CHECK Lead Channel RA Pacing Threshold Date 2024-11-29 CV DEVICE CHECK Lead Channel Setting Pacing Amplitude 2.000 CV DEVICE CHECK Lead Channel Setting Pacing Pulse Width 0.4 CV DEVICE CHECK Lead Channel Sensing Intrinsic Amplitude 25.000 CV DEVICE CHECK Lead Channel Setting Sensing Sensitivity 1.50 CV DEVICE CHECK Lead Channel Impedance Value 678 CV DEVICE CHECK Lead Channel Pacing Threshold Amplitude 1.000 CV DEVICE CHECK Lead Channel Pacing Threshold Pulse Width 0.4 CV DEVICE CHECK Lead Channel RV Pacing Threshold Date 2024-11-29 CV DEVICE CHECK Lead Channel Setting Pacing Amplitude 1.500 CV DEVICE CHECK Lead Channel Setting Pacing Pulse Width 0.4 CV DEVICE CHECK Sukhdve Setting Mode (NBG Code) DDD CV DEVICE CHECK Sukhdev Setting Lower Rate Limit 60 CV DEVICE CHECK Sukhdev Setting AT Mode Switch Rate 170 CV DEVICE CHECK Sukhdev Setting Maximum Tracking Rate 130 CV DEVICE CHECK Sukhdev Setting PAV Delay 180 CV DEVICE CHECK Sukhdev Setting CAYETANO Delay 150 CV DEVICE CHECK Zone Setting Type Category VT CV DEVICE CHECK Rate 160 CV DEVICE CHECK Zone Setting Status Monitor CV DEVICE CHECK Zone ID 1 CV DEVICE CHECK Date of Service 2024-12-11 CV DEVICE CHECK Anatomical Region Laterality Modality Device Interroga tion 12/01/2024 4:41 AM EST Impressions 12/07/2024 12:58 PM EST Normal Remote: No Events * Normal Device Function * Alerts or events: None * Battery: Battery is at 15%, 10 mos * Sensing, impedance and thresholds reviewed * Programmed parameters reviewed * Presenting rhythm reviewed * Heart Rate Histograms reviewed * No significant changes noted Narrative Procedure Note Darcy Dubois MD - 12/07/2024 IMPRESSION: Normal Remote: No Events * Normal Device Function * Alerts or events: None * Battery: Battery is at 15%, 10 mos * Sensing, impedance and thresholds reviewed * Programmed parameters reviewed * Presenting rhythm reviewed * Heart Rate Histograms reviewed * No significant changes noted Darcy Dubois MD CV IMPLANTABLE CARDIAC DEV ICE PROCEDURES Final Result * CARDIAC DEVICE CHECK- IN CL[facility]- [facility] [place] (11/29/2024 9:00 AM EST) Date Time Interrogation Session [id number] CV DEVICE CHECK Implantable Pulse Generator Wallet Assembler BSX CV DEVICE CHECK Implantable Pulse Generator Type IPG CV DEVICE CHECK Implantable Pulse Generator Model L111 CV DEVICE CHECK Implantable Pulse Generator Serial Number [id number] CV DEVICE CHECK Implantable Pulse Generator Implant Date 20171110 CV DEVICE CHECK Battery Remaining Longevity 10.0 CV DEVICE CHECK Battery Status Middle of Service CV DEVICE CHECK Lead Channel Sensing Intrinsic Amplitude 0.800 CV DEVICE CHECK Lead Channel Setting Sensing Sensitivity 0.25 CV DEVICE CHECK Lead Channel Impedance Value 614 CV DEVICE CHECK Lead Channel Pacing Threshold Amplitude 0.800 CV DEVICE CHECK Lead Channel Pacing Threshold Pulse Width 0.4 CV DEVICE CHECK Lead Channel RA Pacing Threshold Date 2024-11-29 CV DEVICE CHECK Lead Channel Setting Pacing Amplitude 3.500 CV DEVICE CHECK Lead Channel Setting Pacing Pulse Width 0.4 CV DEVICE CHECK Lead Channel Sensing Intrinsic Amplitude 25.000 CV DEVICE CHECK Lead Channel Setting Sensing Sensitivity 1.50 CV DEVICE CHECK Lead Channel Impedance Value 702 CV DEVICE CHECK Lead Channel Pacing Threshold Amplitude 1.000 CV DEVICE CHECK Lead Channel Pacing Threshold Pulse Width 0.4 CV DEVICE CHECK Lead Channel RV Pacing Threshold Date 2024-11-29 CV DEVICE CHECK Lead Channel Setting Pacing Amplitude 3.500 CV DEVICE CHECK Lead Channel Setting Pacing Pulse Width 0.4 CV DEVICE CHECK Sukhdev Setting Mode (NBG Code) DDD CV DEVICE CHECK Sukhdev Setting Lower Rate Limit 60 CV DEVICE CHECK Sukhdev Setting AT Mode Switch Rate 170 CV DEVICE CHECK Sukhdev Setting Maximum Tracking Rate 130 CV DEVICE CHECK Sukhdev Setting PAV Delay 180 CV DEVICE CHECK Sukhdev Setting CAYETANO Delay 150 CV DEVICE CHECK Zone Setting Type Category VF CV DEVICE CHECK Zone Setting Status On CV DEVICE CHECK Zone ID 1 CV DEVICE CHECK Zone Setting Type Category VT CV DEVICE CHECK Rate 160 CV DEVICE CHECK Zone Setting Status On CV DEVICE CHECK Zone ID 2 CV DEVICE CHECK Zone Setting Type Category VT1 CV DEVICE CHECK Zone Setting Status On CV DEVICE CHECK Zone ID 3 CV DEVICE CHECK Date of Service 2024-11-29 CV DEVICE CHECK Anatomical Region Laterality Modality Device Interroga tion 11/29/2024 Impressions 12/07/2024 12:59 PM EST Normal In-Office: No Events * Normal Device Function * Alerts or events: None since last remote session ?? * Battery: MOS, 10 months ?? * Sensing, impedance and thresholds reviewed and tested * Presenting Rhythm: -CLAY [place]STER 80 bpm ?? * No consistent R waves @ 30 bpm today ? * Heart Rate Histograms reviewed * Pacing and Detection Parameters were evaluated Narrative Procedure Note Darcy Dubois MD - 12/07/2024 IMPRESSION: Normal In-Office: No Events * Normal Device Function * Alerts or events: None since last remote session * Battery: MOS, 10 months * Sensing, impedance and thresholds reviewed and tested * Presenting Rhythm: -[place]AY [place]STER 80 bpm * No consistent R waves @ 30 bpm today * Heart Rate Histograms reviewed * Pacing and Detection Parameters were evaluated us Order Referral Cardiovascular CV IMPLANTABLE CAR DIAC DEVICE PROCEDURES Final Result from Last 3 Months Insurance [employer] Advance Directives Documents on File Type Date Recorded Patient Marketing Strategy Lead Expl anation Health Care Decision (hx) 07/25/2015 AD TUTTLE DIRECTIVE Health Care Decision (hx) 07/25/2015 AD TUTTLE DIRECTIVE Health Care Decision (hx) 07/25/2015 AD TUTTLE DIRECTIVE Health Care Decision (hx) 07/25/2015 AD TUTTLE DIRECTIVE Health Care Decision (hx) 07/25/2015 AD TUTTLE DIRECTIVE Health Care Decision (hx) 07/25/2015 AD TUTTLE DIRECTIVE Health Care Decision (hx) 07/25/2015 AD TUTTLE DIRECTIVE Health Care Decision (hx) 07/25/2015 AD TUTTLE DIRECTIVE Health Care Decision (hx) 07/25/2015 AD TUTTLE DIRECTIVE Health Care Decision (hx) 07/11/2015 AD TUTTLE DIRECTIVE Health Care Decision (hx) 07/11/2015 AD TUTTLE DIRECTIVE Health Care Decision (hx) 07/11/2015 AD TUTTLE DIRECTIVE Health Care Decision (hx) 07/11/2015 AD TUTTLE DIRECTIVE Health Care Decision (hx) 07/11/2015 AD TUTTLE DIRECTIVE Health Care Decision (hx) 07/11/2015 AD TUTTLE DIRECTIVE Health Care Decision (hx) 07/11/2015 AD TUTTLE DIRECTIVE Health Care Decision (hx) 07/11/2015 AD TUTTLE DIRECTIVE Health Care Decision (hx) 07/11/2015 AD TUTTLE DIRECTIVE Care 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
--- OUTSIDE RECORDS SUMMARY | 2025-01-19 09:31 | XMS_ITS | Continuity of Care Document ---
Author Name [facility] Organization [facility] Care Team Providers Care Burnisher Name Role Phone [facility] Unavailable Unavailable Problems Combined list of problems from Department of Defense and Veterans Affairs facilities. It does not include entries that were removed or entered in error. 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 Tyler Flores [facility] Cardiac pacemaker in situ Active Condition March 17, 2018 Entered By: DEVAN MARIE Comment: Placed 11/10/17 due to Mobitz Type II heart blockJan 26, 2018 Entered By: DEVAN MARIE Comment: Dr Tineo [facility] Chronic congestive heart failure Active Condition [facility] Chronic obstructive lung disease Active Condition [facility] Diverticulosis Active Condition [facility] Elevated liver enzymes level Active Condition March 17, 2018 Entered By: DEVAN MARIE Comment: due to fatty liver [facility] Exsmoker Active Condition Feb 08 Entered By: DEVAN MARIE Comment: Started 1946 - Quit 1988 - PPDMa2017 Entered By: DEVAN MARIE Comment: PFT's in 2014 normal [facility] Gastroesophageal reflux disease Active Condition [facility] Gout Active Condition [facility] Hard of hearing Active Condition [facility] Heart murmur Active Condition [facility] Hyperlipidemia Active Condition [facility] Hypertension Active Condition [facility] Low back pain Active Condition Feb Entered By: DEVAN MARIE Comment: ChronicApr 2018 Entered By: DEVAN MARIE Comment: Under controlled substance contract for oxycodone from PCP [facility] Osteoarthritis Active Condition [facility] Peripheral vascular disease Active Condition [facility] Prediabetes Active Condition [facility] Primary Care Physician Active Condition Jun 17, 2018 Entered By: DEVAN MARIE Comment: Dr Cherri Daniels MA [facility] Vitamin D deficiency Active Condition [facility] Diagnosis: ICD-10-CM Z46.0 Encounter for fit/adjst of spectacles and contact lenses Active Diagnosis [facility] Diagnosis: ICD-10-CM 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, right eye, mild stage Active Diagnosis [facility] Diagnosis: ICD-10-CM H40.1121 Primary open-angle glaucoma, left eye, mild stage Active Diagnosis [facility] Diagnosis: ICD-10-CM F43.22 Adjustment disorder with anxiety Active Diagnosis [facility] Diagnosis: ICD-10-CM Z46.1 Encounter for fitting and adjustment of hearing aid Active Diagnosis [facility] Diagnosis: ICD-10-CM I10 Essential (primary) hypertension Active Diagnosis [facility] Diagnosis: ICD-10-CM H90.A31 Mix cndct/snrl hear loss,uni,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 Medication Details Route Status Patient Instructions Prescription Expires Prescription Number Last Dispense Date Ordering Provider Order Date Order Qty Source ALBUTEROL 90MCG/ACTUA T (CFC-F) INHL,ORAL,8 .5GM DOSE COUNTER INHALE 2 PUFFS BY MOUTH EVERY 4 HOURS NEEDED SHORTNES S OF BREATH/W HEEZING RESPIR ATORY (INHAL ATION) ACTIVE 07/20/2025 [id number] NAKUL MARIE SA 2023 1 [place] ASPIRIN 81MG TAB,EC TAKE ONE TABLET BY MOUTH ONCE DAILY ORAL ACTIVE NAKUL MARIE SA [facility] ATORVASTATI N CA 20MG TAB TAKE ONE-HALF TABLET BY MOUTH AT BEDTIME FOR HIGH CHOLESTE ROL ORAL ACTIVE 06/26/2025 [id number] 5 NAKUL MARIE SA 2024 45 [place] ATORVASTATI N CA 20MG TAB TAKE ONE-HALF TABLET BY MOUTH AT BEDTIME FOR HIGH CHOLESTE ROL ORAL DISCONT INUED 06/26/2025 [id number] 4 NAKUL MARIE SA 2023 45 [place] CARVEDILOL 6.25MG TAB TAKE ONE TABLET BY MOUTH TWICE DAILY FOR HIGH BLOOD PRESSURE ORAL ACTIVE 06/26/2025 [id number] 5 NAKUL MARIE SA 2023 180 [place] CETIRIZINE HCL 10MG TAB TAKE ONE TABLET BY MOUTH ONCE DAILY FOR ALLERGIE S (RX BY DR ANNE Glover) ORAL ACTIVE 04/13/2025 [id number] 4 NAKUL MARIE SA 2023 90 [place] CLOPIDOGREL BISULFATE 75MG TAB TAKE ONE TABLET BY MOUTH ORAL ACTIVE MELISSA LOPEZ 2020 [place] CYCLOSPORIN E 0.05% (PF) EMULSION,OP H,0.4ML INSTILL 1 DROP INTO EACH EYE ONCE DAILY ### OPHTHA LMIC ACTIVE 10/09/2025 [id number] 5 David VIGIL E [address] [facility] CYCLOSPORIN E 0.05% (PF) EMULSION,OP H,0.4ML INSTILL 1 DROP INTO EACH EYE ONCE DAILY ### OPHTHA LMIC DISCONT INUED 03/25/2025 [id number] 4 David VIGIL NDREW E 2023 90 [facility] CYCLOSPORIN E 0.05% (PF) EMULSION,OP H,0.4ML INSTILL 1 DROP INTO EACH EYE ONCE DAILY ### OPHTHA LMIC DISCONT INUED 08/22/2024 [id number] David VIGIL NDREW E 2022 90 [facility] FLUTICASONE 100MCG/JULIO CESAR NTEROL 25MCG INHL,ORAL,3 0D INHALE 1 PUFF BY MOUTH ONCE DAILY (RINSE MOUTH AFTER USE) FOR ASTHMA RESPIR ATORY (INHAL ATION) ACTIVE 01/13/2026 [id number] 5 NAKUL MARIE SA 2024 3 [place] FLUTICASONE 100MCG/JULIO CESAR NTEROL 25MCG INHL,ORAL,3 0D INHALE 1 PUFF BY MOUTH ONCE DAILY (RINSE MOUTH AFTER USE) FOR ASTHMA RESPIR ATORY (INHAL ATION) DISCONT INUED (EDIT) 07/20/2025 [id number] 5 NAKUL MARIE SA 2023 1 [place] FLUTICASONE 100MCG/JULIO CESAR NTEROL 25MCG INHL,ORAL,3 0D INHALE 1 PUFF BY MOUTH ONCE DAILY (RINSE MOUTH AFTER USE) FOR ASTHMA RESPIR ATORY (INHAL ATION) DISCONT INUED (EDIT) 05/08/2025 [id number] 4 NAKUL MARIE SA 2023 1 [place] FLUTICASONE 100MCG/JULIO CESAR NTEROL 25MCG INHL,ORAL,3 0D INHALE 1 PUFF BY MOUTH ONCE DAILY FOR CONTROLL ER MEDICATI ON FOR ASTHMA (RINSE MOUTH AFTER USE) RESPIR ATORY (INHAL ATION) DISCONT INUED (EDIT) 05/28/2024 [id number] 4 NAKUL MARIE SA 2022 1 [place] FLUTICASONE PROPIONATE 50MCG/SPRAY SOLN,NASAL, 16GM INSTILL 2 SPRAYS INTO EACH NOSTRIL ONCE DAILY FOR NASAL IRRITATI ON/INFLA MMATION (RX BY DR ANNE Glover) NASAL ACTIVE 07/20/2025 [id number] 4 NAKUL MARIE SA 2023 3 [place] FLUTICASONE PROPIONATE 50MCG/SPRAY SOLN,NASAL, 16GM INSTILL 2 SPRAYS INTO EACH NOSTRIL ONCE DAILY FOR NASAL IRRITATI ON/INFLA MMATION (RX BY DR ANNE Glover) NASAL DISCONT INUED (EDIT) 04/13/2025 [id number] 4 NAKUL MARIE SA 2023 3 [place] GABAPENTIN 300MG CAP TAKE ONE CAPSULE BY MOUTH THREE TIMES A DAY ORAL ACTIVE 06/26/2025 [id number] 5 NAKUL MARIE SA 2023 90 [place] LATANOPROST 0.005% SOLN,OPH INSTILL 1 DROP INTO EACH EYE AT BEDTIME FOR INCREASE D PRESSURE IN THE EYE OPHTHA LMIC ACTIVE 10/09/2025 [id number] 4 David VIGIL E 2023 7.5 [facility] LOSARTAN 50MG TAB TAKE ONE TABLET BY MOUTH ONCE DAILY ORAL ACTIVE NAKUL MARIE SA 2018 [facility] OMEPRAZOLE 20MG CAP,EC TAKE ONE CAPSULE BY MOUTH EVERY MORNING 30 MINUTES BEFORE BREAKFAS T FOR HEARTBUR N ORAL ACTIVE 10/07/2025 [id number] 5 NAKUL MARIE SA 2023 60 [place] OMEPRAZOLE 20MG CAP,EC TAKE ONE CAPSULE BY MOUTH EVERY MORNING 30 MINUTES BEFORE BREAKFAS T FOR HEARTBUR N ORAL DISCONT INUED (EDIT) 10/16/2024 [id number] 4 MELISSA LOPEZ JHON 2023 60 [place] OMEPRAZOLE 20MG CAP,EC TAKE ONE CAPSULE BY MOUTH EVERY MORNING 30 MINUTES BEFORE BREAKFAS T FOR HEARTBUR N ORAL DISCONT INUED 06/29/2024 [id number] 4 NAKUL MARIE SA RAMON 2023 90 [facility] OMEPRAZOLE 20MG CAP,EC TAKE ONE CAPSULE BY MOUTH EVERY MORNING 30 MINUTES BEFORE BREAKFAS T ORAL DISCONT INUED (EDIT) 05/22/2024 [id number] 4 NAKUL MARIE SA RAMON 2022 90 [facility] [place] TIOTROPIUM 2.5MCG/ACTU AT INHL,ORAL,6 0D,4GM INHALE 2 PUFFS BY MOUTH ONCE DAILY FOR CONTROLL ER MEDICATI ON FOR ASTHMA RESPIR ATORY (INHAL ATION) ACTIVE 07/20/2025 [id number] 4 NAKUL MARIE SA RAMON 2023 3 [place] TRAZODONE HCL 50MG TAB TAKE TWO TO THREE TABLETS BY MOUTH AT BEDTIME NEEDED FOR SLEEP ORAL ACTIVE 08/18/2025 [id number] 5 MELISSA LOPEZ 2023 90 [facility] [place] TRAZODONE HCL 50MG TAB TAKE TWO TO THREE TABLETS BY MOUTH AT BEDTIME NEEDED FOR SLEEP ORAL DISCONT INUED 05/19/2025 [id number] 4 MELISSA LOPEZ 2023 90 [facility] [place] TRAZODONE HCL 50MG TAB TAKE TWO TO THREE TABLETS BY MOUTH AT BEDTIME NEEDED FOR SLEEP -FOR SLEEP ORAL DISCONT INUED 12/23/2024 [id number] 4 MELISSA LOPEZ 2023 90 [facility] [place] TRAZODONE HCL 50MG TAB TAKE TWO TO THREE TABLETS BY MOUTH AT BEDTIME NEEDED -FOR SLEEP ORAL DISCONT INUED (EDIT) 06/09/2024 [id number] 4 MELISSA LOPEZ 2022 90 [facility] [place] Immunizations Combined list of available immunizations from the Department of Defense and Veterans Affairs facilities. 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 Status Comments Source INFLUENZA, UNSPECIFIED FORMULATION 2021 88 complet ed [facility] INFLUENZA, INJECTABLE, QUADRIVALENT 2017 158 complet ed Site: Left Deltoid [place] PNEUMOCOCCAL POLYSACCHARID E PPV23 2017 33 complet ed [place] PNEUMOCOCCAL CONJUGATE PCV 13 2015 133 complet ed yes [facility] INFLUENZA, SEASONAL, INJECTABLE 2015 141 complet ed NON VA PCP [facility] TDAP 2015 115 complet ed [facility] Vital Signs Combined list of inpatient and outpatient Vital Signs from Department of Defense and Veterans Affairs, ranging from 12 months to all on record, depending upon the facility. Vital Sign Value Date Comments Source SYSTOLIC BLOOD PRESSURE 139 01/20/20 24 11:43:03 [facility] DIASTOLIC BLOOD PRESSURE 72 024 11:43:03 [facility] PULSE OXIMETRY 98 01/20/2024 11:43:03 [facility] WEIGHT 170.6 01/20/2024 11:43:03 [facility] BMI 28 kg/m2 01/20/2024 11:43:03 [facility] PAIN 0 01/20/2024 11:43:03 [facility] HEIGHT 65 01/20/2024 11:43:03 [facility] TEMPERATURE 98.3 01/20/2024 11:43:03 [facility] PULSE 73 01/20/2024 11:43:03 [facility] RESPIRATION 16 01/20/2024 11:43:03 [facility] Encounters Combined list of: 1) Encounters from Department of Veterans Affairs facilities going backup to the last 18 months, not all VA inpatient encounters are included; 2) Encounters from the Department of Defense facilities going backup to 280 months. Location Location Details Encounter Type Encounter Number Reason For Visit Attending Provider ADM Date DC Date Status Disposition Source [facility] Outpatient Encounter [id number] 08/22 [facility] EYE EXAM&TX ESTAB PT 1/>VST [id number] Diagnos is: ICD-10- CM H40.013 Open angle with borderl ine finding s, low risk, bilater kirsten VIGIL,JOHAN FORREST E 10/03 [facility] VISUAL FIELD EXAMINATIO N(S) [id number] Diagnos is: ICD-10- CM H40.013 Open angle with borderl ine finding s, low risk, malihaater kirsten VIGIL,JOHAN FORREST E 10/03 [facility] CMPTR OPHTH IMG OPTIC NERVE [id number] Diagnos is: ICD-10- CM H40.013 Open angle with borderl ine finding s, low risk, bilater al YARITZA,JOHAN FORREST E 10/03 [facility] FIT SPECTACLES BIFOCAL [id number] Diagnos is: ICD-10- CM Z46.0 Encount er for fit/adj st of spectac les and contact lenses JOHAN VIGIL E 10/03 [facility] Out[facility] Encounter [id number] 12/03 [facility] Outpatient Encounter [id number] 12/18 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 Derrick POLLACK 01/04 [facility] En[facility] [id number] 01/12 [facility] OFFICE O/P EST LOW 20 MIN [id number] Diagnos is: ICD-10- CM I10 Essenti al (primar y) hyperte nsEMMA Butterfield 01/19 [place] [facility] CONFORMITY EVALUATION [id number] Diagnos is: ICD-10- CM Z46.1 Encount er for fitting and adjustm ent of hearing aid Derrick POLLACK 01/27 [facility] En[facility] [id number] 03/18 [facility] En[facility] [id number] 03/24 [facility] En[facility] [id number] 03/30 [facility] En[facility] [id number] 03/31 [facility] En[facility] [id number] 04/12 [facility] Encounter [id number] 05/03 [facility] En[facility] [id number] 05/04 [facility] En[facility] [id number] 05/04 [facility] En[facility] [id number]/05 [facility] [place] OFFICE O/P EST MOD 30 MIN [id number] Diagnos is: ICD-10- CM F43.22 Adjustm ent disorde r with anxiety LARROW,VIKI AN 05/18 [place] [facility] En[facility] [id number] 06/25 [facility] En[facility] [id number] 07/19 [facility] [place] OFF[facility] O/P EST MOD 30 MIN [id number] Diagnos is: ICD-10- CM F43.22 Adjustm ent disorde r with anxiety LARROW,VIKI AN 08/17 [place] [facility] En[facility] [id number] 10/04 [facility] En[facility] [id number] 10/06 [facility] [place] [id number] Diagnos is: ICD-10- CM H40.112 1 Primary open-an gle glaucom a, left eye, mild stage JOHAN VIGIL E 10/08 [facility] CMPTR OPHTH IMG OPTIC NERVE [id number] 1. Diagnos is: ICD-10- CM H40.111 1 Primary open-an gle glaucom a, right eye, mild stage JOHAN VIGIL E 10/08 [facility] Out[facility] Encounter [id number] 1.10/08 [facility] FIT SPECTACLES BIFOCAL [id number] 1. Diagnos is: ICD-10- CM Z46.0 Encount er for fit/adj st of spectac les and contact lenses JOHAN VIGIL E 10/08 [facility] En[facility] [id number] 10/16 [facility] En[facility] [id number] 11/10 [facility] En[facility] [id number] 01/06 [facility] En[facility] [id number] 01/06 [facility] En[facility] [id number] 01/12 [facility] [id number] 01/12 [facility] Out[facility] En[facility] [id number] 01/17 [facility] [place] Outpatient Encounter [id number] 01/19 [facility] [place] Social History Combined list of available smoking, tobacco, and other social history from Department of Defense and Veterans Affairs facilities. Social History Type Response Date Comment Sourc e Tobacco smoking status [facility]IS [facility] NEVER USED 01/20/2024 [facility] [place] History of tobacco use [facility]-TO[facility]ACCO FORMER USER 12/18/2021 [place] History of tobacco use [facility]-TOBACCO FORMER USER 12/14/2018 [place] History of tobacco use QUIT TOBACCO USE > 7 YEARS AGO 01/26/2018 quit in 1988 [place] Plan of Care List of future care activities from Department of Veterans Affairs facilities. Additional future care activities may be listed in the Assessment and Plan section. Date/Time Care Activity Care Activity Detail Facili ty 01/19/2025 AMBULATORY - MEDIC[facility] 02/15/2025 AMBULAT[facility]/01/2025 [facility] 06/01/2025 AMBULATORY - MEDICINE AMBULATORY - MEDICI NE [facility] Advance Directives List of completed, amended, or rescinded Advance Directives on record at Department of Veterans Affairs facilities. An actual copy of the Directive is not included. Date Advance Directive Provider Source 01/26/2018 ADVANCE DIRECTIVE TAI CURTIS
--- OUTSIDE RECORDS SUMMARY | 2025-01-19 09:31 | XMS_ITS ---
Author Name [facility] ([facility]) Organization [facility] ([facility]) Address [address] [place] [id number] Care Team Providers Care Last Waxer Name Role Phone EMMA MARIEA Primary Care [...] Patient's Relationship to Policy Diamond [facility] (WNR) MEDICARE ADVANTAGE [facility] (WNR) 2005 [facility] [id number] PATIENT Selected Encounter This section includes the information on record at ID for the Encounter. Date/Time Encounter Type Encounter Description Reason Pro vider Source March 24, 2024 08:51 AM Outpatient Encounter ADMIN PAT ACTIVTIES (MASNONCT) I[facility] Encounter Template Text not used by [facility] Plan of Treatment: Future Appointments (+ 6 months) and Future Tests (+/- 45 days) The Plan of Treatment section includes future care activities for the patient from all ID treatmentfacilities. This section includes future appointments and future orders which are active, pending or scheduled. Future Appointments This section includes appointments that were scheduled to occur 6 months from the date of the Encounter, up to a maximum of 20 appointments. The data comes from all ID treatment facilities. Appointment Date/Time Appointment Type Appointme nt Facility Name May 18, 2024 08:30 AM AMBULATORY - PSYCHIATRY [facility] Aug 17, 2024 03:00 PM AMBULATORY - PSYCHIATRY [facility] Advance Directives: All historical and current Section Date Range: From patient's date of to the date document was created. This section includes ALL of a patient's completed or amended VA Advance and Rescinded Directives. The entries below indicate that a directive exists for the patient, but an actual copy is not included with this document. The data comes from all ID facilities. Date Advance Directives Provider Source Jan 26, 2018 ADVANCE DIRECTIVE TAI CURTIS [facility] Encounter Notes: All associated encounter notes This section contains the clinical notes associated to the Encounter. Date/Time Encounter Note(s) Provider Source March 24, 2024 02:16 PM ADDENDUM: LOCAL TITLE: Addendum STANDARD TITLE: ADDENDUM DATE OF NOTE: MARCH 24, 2024@14:16:52 ENTRY DATE: MARCH 24, 2024@14:16:53 AUTHOR: DEVAN MARIE EXP COSIGNER: URGENCY: STATUS: COMPLETED Will need new Rxs for omeprazole and FLUTIC 100/VILANTEROL 25MCG from his PCP please. Will forward req for eye drops to opto. 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 Please review and renew if appropriate. *This note was generated by [facility]/[place] [facility] Customer [facility]. If you have any questions or need assistance, do not contact this author. Please refer all questions to your local, on-site pharmacy departments. /bibiana HALL CPhT [employer], [place]/Pharm[facility] Customer [facility] Signed: 03/24/2024 08:53 Receipt Acknowledged By: 03/24/2024 14:16 /bibiana MARIE MD Primary Care Physician 03/24/2024 ADDENDUM STATUS: COMPLETED Left message for Vet to call his PCP to have new scripts faxed to us @ /es/ MIGUEL MOSES LPN PACT 10 Signed: 03/24/2024 14:37 DEVAN MARIE [facility] March 24, 2024 08:51 AM PHARMACY NOTE: LOCAL TITLE: V1 PHARMACY CUSTOMER CARE MEDICATION RENEWAL STANDARD TITLE: PHARMACY NOTE DATE OF NOTE: MARCH 24, 2024@08:51 ENTRY DATE: MARCH 24, 2024@08:51:16 AUTHOR: NIDIA HLAL V EXP COSIGNER: URGENCY: STATUS: COMPLETED V1 PHARMACY CUSTOMER CARE MEDICATION RENEWAL Has ADDENDA Date: March Division: [facility] referred by Pharmacy Call Center for medication renewal: Non-controlled/maintenan ce medication Medications requested: [id number]$ OMEPRAZOLE 20MG EC CAP [id number]$ FLUTIC 100/VILANTEROL 25MCG [id number]$ CYCLOSPORINE 0.05% (PF) OPH *please contact if not able to renew* Defer to primary care provider To be mailed . Please review and renew if appropriate. *This note was generated by [facility] [facility]. If you have any questions or need assistance, do not contact this author. Please refer all questions to your local, on-site pharmacy departments. /bibiana HALL CPhT [employer], [place]/[facility]armacy Customer Care Signed: 03/24/2024 08:53 Receipt Acknowledged By: 03/24/2024 14:16 /bibiana MARIE MD Primary Care Physician 03/24/2024 ADDENDUM STATUS: COMPLETED Will need new Rxs for omeprazole and FLUTIC 100/VILANTEROL 25MCG from his PCP please. Will forward req for eye drops to opto. /es/ DEVAN MARIE MD Primary Care Physician Signed: 03/24/2024 14:17 Receipt Acknowledged By: 03/24/2024 14:34 /darcie/ MIGUEL MOSES LPN PACT 10 03/24/2024 14:38 /es/ DANYEL VIGIL OD [employer]AFF [employer] 03/24/2024 ADDENDUM STATUS: COMPLETED Left message for Vet to call his PCP to have new scripts faxed to us @ [phone] /darcie/ MIGUEL MOSES LPN PACT 10 Signed: 03/24/2024 14:37 NIDIA HALL CNTRL TRN [facility]
== END 2025-01-19 09:12 | disposition home or self-care (01) ==
LOC: HO.HPS 08:39
PROVIDERS: PCP Internal Medicine; Visit Provider Hospitalist
DX: J96.11 Chronic respiratory failure with hypoxia (principal); J44.1 Chronic obstructive pulmonary disease with (acute) exacerbation; J31.0 Chronic rhinitis
CPT/HCPCS: 99214; G2211

== ENCOUNTER 2025-01-19 08:39 | Outpatient (REF) | payer MEDICARE, SELFPAY ==
--- NOTE | ~2025-01-19 | XR_ITS ---
EXAMINATION: XR CHEST 2 VIEWS HISTORY: J44.1 - Chronic obstructive pulmonary disease with (acute) exacerbation COMPARISON: Comparison is made with the prior examination dated 02/11/2023. FINDINGS: PA and lateral views of the chest are submitted. A left subclavian dual-chamber pacemaker is unchanged in position. There are low lung volumes. There is chronic scarring at the lung bases. No new focal airspace opacity is seen. There is no pleural effusion, pneumothorax, or pulmonary vascular congestion. The heart is normal in size. 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 XR/XR chest 2V IMPRESSION: No acute cardiopulmonary abnormality. Electronically signed by: Domo Baker MD 01/19/2025 12:38 PM EDT
== END 2025-01-19 08:40 | disposition home or self-care (01) ==
LOC: HO.XRAY 08:39
PROVIDERS: PCP Internal Medicine; Visit Provider Hospitalist
DX: J44.1 Chronic obstructive pulmonary disease with (acute) exacerbation (principal); J96.11 Chronic respiratory failure with hypoxia; J31.0 Chronic rhinitis; Z99.81 Dependence on supplemental oxygen
CPT/HCPCS: 71046; 99212

== ENCOUNTER → 2025-01-19 09:20 | Outpatient (BNV) | payer MEDICARE, SELFPAY | PROVIDERS: PCP Internal Medicine; Visit Provider Radiology Diagnostic Radiology | DX: J44.1 Chronic obstructive pulmonary disease with (acute) exacerbation (principal) | CPT/HCPCS: 71046 ==

== ENCOUNTER 2025-08-17 09:43 | Outpatient (REF) | payer MEDICARE, SELFPAY ==
--- NOTE | ~2025-08-17 | XR_ITS ---
EXAMINATION: XR CHEST CLINICAL INFORMATION: R09.89 - Other specified symptoms and signs involving the circulatory an... COMPARISON: January 19, 2025 TECHNIQUE: PA and lateral views FINDINGS: Pulmonary reticular pattern. No consolidation, pleural fissure pneumothorax Cardiomediastinal silhouette size demonstrates a prominent pulmonary artery outflow bilaterally. Calcified plaque thoracic aorta with tortuosity. 2 intact electrode leads in the right heart chambers with a left-sided the metallic reservoir. Metallic stenting overlapping the aortic valve. Multilevel spondylosis and multilevel 10% wedge-shaped compression deformities likely osteoporotic. S-shaped curvature of the thoracic spine. XR/XR chest 2V IMPRESSION: Concerning chronic interstitial lung disease. Superimposed mild interstitial lung edema cannot be entirely excluded. Electronically signed by: Paco Sweeney MD 08/17/2025 10:47 AM EDT
== END 2025-08-17 09:44 | disposition home or self-care (01) ==
LOC: HO.XRAY 09:43
PROVIDERS: PCP Internal Medicine; Visit Provider Hospitalist
DX: J44.1 Chronic obstructive pulmonary disease with (acute) exacerbation (principal); J96.11 Chronic respiratory failure with hypoxia; J31.0 Chronic rhinitis; Z79.899 Other long term (current) drug therapy; Z87.891 Personal history of nicotine dependence
CPT/HCPCS: 71046; 99212

== ENCOUNTER 2025-08-17 09:43 | Outpatient (AMB) | payer MEDICARE, SELFPAY ==
[2025-08-17 09:51] VITALS: BP 118/54; PULSE 86; O2SAT 95; BMI 27.3
--- NOTE | 2025-08-17 09:51 | A.OFFVIS_ITS ---
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 He did have a pacemaker placed in apparently has been doing well from the standpoint. He still has and chest discomfort due to that but ultimately was seen by Cardiology in feels like everything is going okay. He does complaint of progressive dyspnea on exertion. His daughter is with him and she is very concerned that his having more shortness of breath specially when going up a flight of stairs. He has been using the Breo in addition to the Spiriva and does have a rescue inhaler. He did go for 6 minutes walk test and he did desaturate down to about 91/92%, but, not meeting criteria for oxygen supplementation. He does have some crackles on examination. Also to state that prior to this visit he was treated with prednisone and antibiotics for an ongoing lower respiratory infection. Currently he has completed the prednisone in the antibiotics. I did review the overnight oximetry demonstrating that he desaturated down to 75% and spent more than 40 minutes below 88%. Therefore, he needs to use the oxygen at nighttime. He has been tolerating it okay however he is having hard time sleeping. I will provide him with sleep aid at this time. He is also informed about nighttime recommendations by not eating too late, shutting off lights. In the meantime he has been using his nebulizer twice a day and continues uses respiratory therapy. No further wheezing on examination. 12/06/2022 the patient is here for a pulmonary follow-up visit. The patient continues to do relatively well. He is using his respiratory therapy with good effect. [facility] In addition to that the patient has been using the oxygen at nighttime. He does get some nasal irritation from the oxygen. He is going to try some saline gel to see if he can provide some relief. In addition to that he is noticing increasing drainage during the daytime. He does not have a history of glaucoma so therefore he can try as needed ipratropium nasal spray to try to dry some although secretions up. The patient does benefit from her oxygen therapy at nighttime so therefore will continue it at this time. She continues using the trazodone for sleep with good effect. Will follow-up in a year's time. 01/30/2023 the patient is here for sick visit. The patient started developing worsening cough. Chest congestion. [place] some gargling in his left lung. Denies fevers or chills. The mucus is thick white. Denies any blood or any discoloration. Denies any needs any chest discomfort. Denies any fevers and denies any sick contacts. The patient is wondering because he has been sick now for the 2nd time in a short period time. Will go ahead and treat him for COPD exacerbation due to a respiratory illness. The patient definitely has some rhonchi and wheezing. Also will undergo a chest x-ray. If the patient continues to be symptomatic will go ahead and request a CT scan of the chest to further address for any postobstructive processes. Also we can assess the blood work. The patient will call if she is no better. Otherwise will follow-up in 3-4 months. 02/11/2023 the patient is here for sick visit. He continues to have a productive cough. He did undergo a chest x-ray demonstrating some minimal linear opacities in the area of the left lower lobe. He has some crackles in that area as well. He was placed on Vantin went up without doxycycline. Seems to be tolerating the therapy. Unfortunately after several days patient still coughing and having chest congestion. His daughter called the office about his persistent symptoms. Therefore, the patient came in for a visit. He did have a chest x-ray and I personally reviewed the x-ray and also compared to the x-ray that he had at [facility]. Appears that the linear opacities in the left lower lobe have improved which is reassuring. He still has some crackles in the left base. Therefore, due to the chest congestion and the partial response to antibiotics will give another course of antibiotics this time with Levaquin. He also will take Mucinex. I did recommend that he can take some probiotics to minimize GI adverse effects. If the patient is no better then at that point will request a CT scan of the chest to better appreciate that area. 05/20/2023 the patient is here for a pulmonary follow-up visit. The patient completed 3rd course of antibiotics with Levaquin he has been feeling better. We did repairs his x-ray demonstrating interstitial changes no obvious pneumonia. The patient's cough is improved. Continues to have some shortness of breath with activity mild severity. Also, a cough intermittently. Otherwise he feels his baseline. He is using his respiratory therapy. The patient is without any other complaints. 04/09/2024 the patient is here for a pulmonary follow-up visit. Overall the patient has been doing better from a respiratory status. Denies any worsening of the shortness of breath. He does complain of significant allergies. Significant sinus congestion and cough. Postnasal drip. Moderate severity. He did take some Benadryl some Mucinex with good response. Will go ahead 7 Zyrtec to the [place] and also been from intranasal corticosteroid therapy. He continues on his inhalers with good response and [facility] His last x-ray demonstrated new acute disease except for his chronic interstitial changes. Since the patient is doing well no additional testing is warranted. If symptoms worsen for some reason he can always call and we can address those symptoms and consider further imaging at that point. P is using the oxygen at nighttime. The oxygen therapy has been affecting beneficial. He can try some water-based lubricant for his knows to avoid too much irritation. 01/19/2025 the patient is here for pulmonary follow-up visit. Overall the patient is doing about the same. 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 The ipratropium nasal spray has been affected but he does not use it regularly. I did request to see if he can try once or twice a day regularly to see if this prevents and preemptively treat his vasomotor issues. Patient does have a cough and choking at times. Explained to him that is likely the same as he does have significant cobblestoning in postnasal drippage appreciated on his exam. From respiratory status he continues to do well on the Breo and also the Spiriva. [facility] I will make sure to send a script to the [facility] to make sure that he has refills and he does not run out. He does use the oxygen at nighttime. This has been affecting beneficial. He is looking to travel to the [facility] soon. He will be with his daughter and at that time though rent a concentrator that they can use at nighttime. The patient does have a history of interstitial lung disease. His respiratory exam is diminished. Will request a chest x-ray to follow-up with those findings. 08/17/2025 the patient is here for pulmonary follow-up visit. Overall the patient is doing okay. Although he is having issues with his vision. He is going to see the eye doctor tomorrow. This is a question of glaucoma. I am not sure exactly if that is what is going on. Although at this point he does take anticholinergics both in the ipratropium nasal spray and also in his Spiriva. He will see the eye doctor tomorrow and let him know that he is taking the anticholinergic therapies and if he needs to stop him they can let us know so we can discontinue those medications. He also complains of some difficulty swallowing. Initially in the beginning feeling like a globus sensation of the throat. We did talk about making sure that he alternate liquids and solids to make sure that his clear his food from the esophagus and also should chin tuck. He is going to work on this techniques for now. He does have some crackles on exam primarily in the right base. I do not appreciate these crackles in the past so therefore will have him get an x-ray. He did have a history of interstitial changes on previous x-rays. If this x-ray is abnormal or if his worsening then additional imaging studies are warranted. [facility] Medical History (Updated 08/17/25 @ 10:22 by Glynn Olson MD) Chest crackles Chronic rhinitis Bronchopneumonia Chronic respiratory failure with hypoxia COPD (chronic obstructive pulmonary disease) Insomnia Surgical History S/P angiogram of extremity (~07/2020) External hemorrhoid Pacemaker Family History Father No problems noted. Mother No problems noted. Social History Patient Tobacco Use Status: Former Tobacco user Tobacco use type: Cigarette Years Smoked: 20 years Review of Systems Const Denies fever(s) and Denies night sweats Eyes Reports as per HPI and Reports change in vision ENT Reports Normal hearing present, Denies change in voice, Denies lip swelling, Denies mouth pain, Reports nasal congestion, Reports nasal discharge and Denies tongue swelling Card Denies chest pain and Reports dyspnea on exertion Resp Denies chest congestion, Reports cough, Reports dyspnea on exertion and Denies wheezing GI Denies abdominal pain Musc Denies no additional complaints Neuro Reports Normal hearing present and Denies Neuro-related abnormal movements Psych Denies no additional complaints Sudheer/Lymph Denies easy bleeding and Denies lymphadenopathy Aller/Immun Denies lip swelling, Denies tongue swelling and Denies wheezing Physical Exam Vital Signs: Last Vital Signs Pulse 86 08/17/25 09:51 BP 118/54 L 08/17/25 09:51 Pulse Ox 95 08/17/25 09:51 Oxygen Delivery Method Room Air 08/17/25 09:51 BMI result Body Mass Index 27.3 Const General: alert Neck Neck: Yes normal visual inspection, Yes full ROM and Yes no lymphadenopathy Chest Chest palpation & inspection: normal inspection of the chest Resp Auscultation: crackles on the right, no rhonchi, no wheezes and diminished lung sounds Cardio Rate: regular rate Rhythm: regular rhythm Heart sounds: S1 normal heart sound present and S2 normal heart sound present GI Palpation (GI): Soft to palpation and nontender Auscultation: normal bowel sounds Skin General skin exam: rashes and/or lesions noted Neuro Cranial nerves: Yes Normal hearing present Assessment & Plan Assessment & Plan (1) Chronic respiratory failure with hypoxia: Code(s): J96.11 - Chronic respiratory failure with hypoxia Category: Medical (2) COPD (chronic obstructive pulmonary disease): Code(s): J44.9 - Chronic obstructive pulmonary disease, unspecified Category: Medical Qualifiers: COPD type: COPD with acute exacerbation Qualified Code(s): J44.1 - Chronic obstructive pulmonary disease with (acute) exacerbation (3) Chronic rhinitis: Code(s): J31.0 - Chronic rhinitis Category: Medical (4) Chest crackles: Code(s): R09.89 - Other specified symptoms and signs involving the circulatory and respiratory systems Category: Medical Plan Continue nocturnal oxygen. [facility] to help with nasal irritation Ipratopium nasal spray 1-2 times a day ?discontinue if +glaucoma Continue Breo 100 Continue Spiriva?discontinue if +glaucoma Duoneb to change to albuterol as needed Trazadone for sleep Zyrtec Fluticasone nasal spray oxygen supplementation 2L/min at night CXR F/U in 6-8 months Orders: Orders XR chest 2V Today R09.89 - Other specified symptoms and signs involving the circulatory and respiratory systems Medications: New fluticasone furoate-vilanterol 100-25 mcg/dose (Breo Ellipta) 1 inh inhalation DAILY 60 ea 11RF 30 days Refilled fluticasone propionate 50 mcg/actuation 2 sprays intranasal DAILY 15.8 mL 11RF 30 days J31.0 - Chronic rhinitis Coding Level of Care Code Est Pt Level 4 (92383) Complex EM visit Add On G2211 Diagnoses Chronic respiratory failure with hypoxia J96.11 Chronic obstructive pulmonary disease with acute exacerbation J44.1 COPD type: COPD with acute exacerbation Chronic rhinitis J31.0 Chest crackles R09.89 Time Spent (min) 17
--- OUTSIDE RECORDS SUMMARY | 2025-08-17 11:09 | XMS_ITS ---
Author Name [facility] Organization Unknown Care Team Organization Name Specialty Phone Email Start Date End [facility] 06/22/2025
--- OUTSIDE RECORDS SUMMARY | 2025-08-17 11:09 | XMS_ITS | Encounter Summary ---
Author Organization [facility] Address [address] [place] [address] Care Team Providers Care Stylist Assistant Name Role Phone Cherri Wise MD Primary Care Provider [phone] Reason for Visit * Reason Onset Date Comments Medication 08/12/2025 Concerns regardi ng blood pressure medication Encounter Details Date Type Department Care Team (Late st Contact Info) Description 08/12/2025 Telephone [facility] [address] [facility] [address] [place] [address] Alfonso Tineo MD [address] [place] [address] Social History Tobacco Use Types Packs/Day Years [...] as of this encounter Progress Notes * Meet Roldan RN - 08/12/2025 4:39 PM EDT Scheduled and approved (by lead YAEL) OV with Dr. Tineo on 08/17/25 at 1PM per provider request. Daughter Alma was already aware of scheduled date and time. LVM with confirmation of apt on Friday. Is aware to call back with any further questions or concerns. Add on email sent. * Sue Hicks MA - 08/12/2025 4:30 PM EDT Thank you. * Meet Roldan RN - 08/12/2025 4:10 PM EDT Noted response from Dr. Tineo, would like to see pt next week - Friday at 1PM. I have [employer] to get approval to book and than will send to access to book. * Meet Roldan RN - 08/12/2025 3:54 PM EDT Sent teams message to Rj Hicks to see if we can have pt booked for a triage with Dr. Tineo whilehe is rounding at [facility] next week. * Margaret Rowe NP - 08/12/2025 3:40 PM EDT Would suggest a triage visit for this to get better evaluated * Meet Roldan RN - 08/12/2025 3:03 PM EDT Alma calling back this PM. States she has been going around in circles with this issue since December. Looks like Losartan was Dcd by PCP back in December for symptomatic hypotension when pt also had COVID. Daughter confirms patient is not taking Losartan now. SBP has still been running low, she can not confirm recorded readings, times that BP has been low. Confirmed pt is taking Coreg 3.125mg BID and Imdur 30mg daily. Is only taking Lasix as needed for swelling and she states he is not takingLasix as he has no JOSE CARLOS. still has same s/s - lightheadedness. Does not know his daily fluid intake but states she will ask him. Has no reported issues with U/O is going to ask him if urine is darker in color. LVM for Marta MANAGER MAINTENANCE from [facility] to get more information on the patient. Update: Marta calling back this PM. States pt was alone when she visited him today. pt does have memory issues and has [facility] and [facility] all involved in care so it makes it difficult to manage/document changes in meds and advisements. She does believe pt is taking Losartan 25mg daily, Coreg 3.125mg BID, and Imdur 30mg daily. Updated med list. She was able to see a BP log but states it was unorganized and numbers were all over the place. She did encourage pt to take BP consistently at same time each day for at least a week and record those numbers. Is sorry that she does not have any more information. * Meet Roldan RN - 08/12/2025 2:37 PM EDT RUAL with Ibis Haro on 04/28/25. Mentions in that OV notes: At his last visit on 12/17/2024, the patient was struggling with symptomatic hypotension (dizziness) and BP medications were being adjust byboth his PCP and our office. BP meds not adjusted after this OV. Home BP has been correlated in our office. Next scheduled OV 11/10/25. LVM for daughter Alma to call the office back to discuss further. * Bernie De Luna MA - 08/12/2025 1:36 PM EDT Marta a nurse practitioner from [facility] called in regards to the patient. She went to see the patient today for a wellness check and stated his blood pressure was 94/42. She sad that his log has been showing a range of 70's-90's very occasionally moving up. There was one reading of 112/63. Marta is wondering if the patient should be backed off some of his medications or doses should be lowered. Please advise and if more information is needed call [phone]. For medication changes please call the patient directly. documented in this encounter Plan of Treatment Upcoming Encounters Date Type Department Care Team (Late st Contact Info) Description 08/17/2025 1:00 PM EDT Office Visit [facility] Cardiology [facility] [address] [facility] [address] [place] [address] Alfonso Tineo MD [address] [place] [address] 10/05/2025 9:30 AM EST Ancillary Procedure [facility] [address] [place] [address] 11/10/2025 9:10 AM EST Office Visit [facility] [address] [facility] [address] [place] [address] Gail Haro NP [address] [place] [address] documented as of this encounter Visit Diagnoses Not on filedocumented in this encounter Discontinued Medications Medication Sig Discontinue Reason Start Date End Da te losartan (COZAAR) 50 mg tablet Take 1 tablet (50 mg total) by mouth 1 (one) time each day. Prescriber Discontinued 05/19/2025 08/12/2025 documented as of this encounter Historical Medications * This list may reflect changes made after this encounter. losartan (COZAAR) 25 mg tablet Take 1 tablet (25 mg total) by mouth 1 (one) time each day. added in this encounter Additional Health Concerns Assessment Noted Time PHQ-9 Depression Total Score: 0 01/07/20 12:56 PM EST A fall risk assessment has been complete d for the patient 01/06/2025 12:49 PM EST documented as of this encounter Care Teams Stylist Assistant Relationship Specialty Start Date End Date Cherri Wise MD [address] [address] PCP - General Internal Medicine 11/26/24 documented as of this encounter
--- OUTSIDE RECORDS SUMMARY | 2025-08-17 11:09 | XMS_ITS | Clinical Summary ---
Author Organization [address] [place] [address] Address [address] [place] [address] Phone Care Team Providers Care Filler Block Inserter Remover Name Role Phone Cherri Wise MD Primary Care Provider [phone] Allergies No known active allergies Medications albuterol HFA (PROAIR HFA ; PROVENTIL HFA ; VENTOLIN HFA) 90 mcg/actuation inhaler Inhale 2 Puffs into the lungs every 4 hours as needed. Active fluticasone furoate-vilanteroL (BREO ELLIPTA) 100-25 mcg/dose inhaler 07/27/20 Active ipratropium-albute roL (DUONEB) 0.5-2.5 mg/3 mL nebulizer solution as needed. 07/22/20 Active nitroglycerin (NITROSTAT) 0.[address] 1 Tablet under the tongue every 5 minutes as needed for Chest pain. 07/21/20 Active miscellaneous medical supply misc Oxygen Historical (HISTORICAL OXYGEN) Inhale 2 L into the lungs. night Active tiotropium (Spiriva Respimat) 2.5 mcg/actuation inhalation spray INHALE 2 PUFFS BY MOUTH ONCE DAILY 09/14/20 15 Active traZODone (DESYREL) 50 mg tablet 2 Tablets at bedtime. 08/29/20 20 Active clopidogreL (PLAVIX) 75 mg tablet Take 1 tablet (75 mg total) by mouth 1 (one) time each day. 90 tablet 3 01/21/20 25 Active omeprazole (PriLOSEC) [address] capsule Take 1 capsule (20 mg total) by mouth 1 (one) time each day. Do not crush or chew. 60 capsule 2 05/11/20 25 Active isosorbide mononitrate (IMDUR) 30 mg 24 hr tablet Take 1 tablet (30 mg total) by mouth 1 (one) time each day. Do not crush or chew. 90 tablet 2 05/19/20 25 Active gabapentin (NEURONTIN) 300 mg capsule Take 1 capsule (300 mg total) by mouth 3 (three) times a day. 270 capsule 2 05/19/20 25 Active furosemide (LASIX) 20 mg tablet Take 1 tablet (20 mg total) by mouth 1 (one) time each day if needed (leg/ankle swelling). 90 tablet 1 05/19/20 25 Active carvediloL (COREG) 3.125 mg tablet Take 1 tablet (3.125 mg total) by mouth 2 (two) times a day with meals. 60 each 05/19/20 25 026 Active atorvastatin (LIPITOR) 20 mg tabletIndications: Mixed hyperlipidemia Take 1 tablet (20 mg total) by mouth 1 (one) time each day. 30 each 05/19/20 25 026 Active losartan (COZAAR) 25 mg tablet Take 1 tablet (25 mg total) by mouth 1 (one) time each day. Active losartan (COZAAR) 50 mg tablet Take 1 tablet (50 mg total) by mouth 1 (one) time each day. 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 The patient offers no concerning symptoms and there is no significant murmur noted on exam today to suggest otherwise. Assessment & Plan (12/19/2024 3:02 PM EST): [...] 3D order panel; Future Complete heart block (CMS/HCC V24, CMS/HCC V28) 07/21/2024 Assessment & Plan (04/28/2025 6:18 PM EDT): Now status post pacemaker; continue with in office and remote device checks as per device clinic protocol. Assessment & Plan (01/06/2025 5:37 PM EST): Orders: Comprehensive metabolic panel; Future Lipid panel with reflex to direct LDL; Future Complete blood count; Future Vitamin B12; Future Magnesium; Future Assessment & Plan (12/19/2024 3:02 PM EST): Now status post pacemaker implantation; continue with remote and Orders: ECG 12 lead Chest pain 07/15/2024 Fatigue 07/15/2024 Unilateral weakness 08/20/2022 Coronary artery disease invo lving [place] coronary artery of [place] heart without angina pectoris 05/10/2021 Overview (04/28/2025): Assessment & Plan (04/28/2025 6:18 PM EDT): The patient offers no symptoms concerning for underlying ischemia within his current functional capacity. Will continue with carvedilol, isosorbide, atorvastatin, and clopidogrel; aspirin was previously discontinued as discussed with Dr. Angulo November 2024. The patient was advised to seek emergent medical attention by calling 911 if he were to develop any severe dyspnea, chest pain that did not resolve with rest or nitroglycerin, or if you were to faint. Assessment & Plan (12/19/2024 3:02 PM EST): [...] importance of staying hydrated. Assessment & Plan (04/28/2025 6:18 PM EDT): Blood pressure is elevated on initial and recheck today; they do have access to a blood pressure cuff at home that has been correlated accurately with in office readings previously. He just took his medications about 45 minutes prior to our visit and admits that he gets very stressed out with his daughters driving; he is hesitant to adjust any medications at this time given his dizziness experienced previously when blood pressures were 90-110s systolic. Therefore, I requested that he check his blood pressures 1 to 2 hours after morning medications, notifying our office of these readings within the next 2 weeks. At that point we will make changes to his antihypertensive regimen accordingly. In the interim, he will continue carvedilol, losartan, and furosemide in addition to isosorbide. Most recent metabolic panel stable. Assessment & Plan (01/06/2025 5:37 PM EST): [...] from . Continue statin. Assessment & Plan (04/28/2025 6:18 PM EDT): Most recent lipid panel was completed 01/12/2025 revealing an LDL of 42; this is at goal of less than 70 for this patient with a history of coronary artery disease. Continue statin. Assessment & Plan (01/06/2025 5:37 [...] continue atorvastatin 20 mg daily. Pacemaker 04/13/2018 Assessment & Plan (04/28/2025 6:18 PM EDT): Assessment & Plan (12/19/2024 3:02 PM EST): Orders: ECG 12 lead Transthoracic echocardiogram (TTE) complete with PRN contrast, bubble, strain, and 3D order panel; Future Chronic obstructive pulmonar y disease (CMS/HCC V24, CMS/HCC V28) 03/31/2018 Dyspnea 03/31/2018 Pulmonary nodules 03/31/2018 Diverticulosis 02/13/2018 Cardiac murmur 06/23/2017 Congestive heart failure (CHF) (CMS/HCC V24, CMS /HCC V28) 11/20/2016 Overview (09/29/2024): Last Assessment & Plan: [...] medical attention if necessary. Assessment & Plan (04/28/2025 6:18 PM EDT): ACC/AHA stage C heart failure with NYHA class I-II symptoms. His most recent echocardiogram completed 02/01/2025 showed an EF of 45 to 50%, and was not significantly changed compared to previous study in July 2023 but was improved from previous LVEF of 34% noted on echocardiogram completed in July 23 21 months after his TAVR was completed. The patient reports no symptoms concerning for overt heart failure and appears euvolemic on exam today. His shortness of breath appears to only occur with significant exertion and is unchanged from previous; he does have significant underlying pulmonary disease requiring nocturnal supplemental oxygen and does find relief of his shortness of breath with use of albuterol. We will not make any changes to his cath and directed medical therapies for heart failure; continue carvedilol, losartan, and isosorbide in addition to furosemide. We discussed risk reduction through lifestyle modifications including healthy diet, routine exercise, and weight management. We reviewed heart failure management including low sodium diet, symptom surveillance, daily weights, and medication compliance. I've asked the patient to call if they develop worsening symptoms of heart failure such as increased shortness of breath, new or worsening cough, increased swelling in the legs or ankles, or weight gain of more than 2 pounds in one day or 4 pounds in one week. Assessment & Plan (12/19/2024 3:02 PM EST): [...] panel; Future Fatty liver 09/20/2016 Aortic atherosclerosis ([facility]/HCC V24) 03/22/2016 Overview (09/29/2024): Comments: 03/01/15 Thoracic aorta calcification Assessment & Plan (12/19/2024 3:02 PM EST): Orders: Ambulatory referral to Cardiology Encounters Date Type Department Care Team Description 08/12/2025 Telephone [facility] Cardiology [facility] [address] [place] [address] Alfonso Tineo MD 07/20/2025 Telephone [facility] - [address] [place] [address] Alfonso Tineo MD 06/02/2025 8:15 AM EDT Ancillary Procedure [facility] [address] [place] [address] 05/19/2025 8:30 AM EDT Office Visit Internal Medicine - [place] [address] [place] [id number] Cherri Wise MD Anemia, unspecified type (Primary Dx); Primary hypertension; Other fatigue; Mixed hyperlipidemia; Chronic obstructive pulmonary disease, unspecified COPD type ([facility] V24, [facility] V28); Chronic combined systolic and diastolic congestive heart failure ([facility] V24, [facility] V28) from Last 3 Months Immunizations Immunization Administration Dates Next Due Pneumococcal conjugate 13 [...] ? hernia repair UPPER GASTROINTESTINAL ENDOSCOPY PROCEDURE: IN UPPER GI ENDOSCOPY PERFORMED COLONOSCOPY PROCEDURE: HISTORICAL COLONOSCOPY CATARACT EXTRACTION PROCEDURE: HISTORICAL CATARACT REMOVAL Medical History Medical History Date Comments Anemia 05/22/2018 DX:Anemia Aortic atherosclerosis ([facility] V24) 03/22/2016 DX:Aortic atherosclerosis ([facility]); COMMENT: Comments: 03/01/15 Thoracic aorta calcification Cardiac murmur 06/23/2017 DX:Cardiac murmu r Chronic low back pain 05/22/2018 DX:Chronic low back pain Chronic obstructive pulmonar y disease ([facility] V24, [facility]/HCC V28) 03/31/2018 DX:Chronic obstructive pulm onary disease (HCC) Congestive heart failure (CH F) (CMS/HCC V24, CMS/HCC V28) 11/20/2016 DX:Congestive heart failure (CHF) (HCC) Diverticulosis [...] Sign Reading Time Taken Comments Blood Pressure 126/84 05/19/2025 8:42 AM EDT Pulse 84 05/19/2025 8:42 AM EDT Temperature 36.6 C (97.8 F) 05/19/2025 8:42 AM EDT Respiratory Rate 18 05/19/2025 8:42 AM EDT Oxygen Saturation 96% 05/19/2025 8:42 AM EDT Inhaled Oxygen Concentration - - Weight 76.2 kg (168 lb) 05/19/2025 8:42 AM EDT Height 170.2 cm (5' 7 ) 05/19/2025 8:42 AM EDT Body Mass Index 26.31 05/19/2025 8:42 AM EDT Plan of Treatment Upcoming Encounters Date Type Department Care Team (Late st Contact Info) Description 08/17/2025 1:00 PM EDT Office Visit [facility] [address] [place] [address] Alfonso Tineo MD [address] [facility] [address] [place] [address] 10/05/2025 9:30 AM EST Ancillary Procedure [facility] Cardiology [facility] - [facility] [address] [facility] [address] [place] [address] 11/10/2025 9:10 AM EST Office Visit [facility] - [facility] [address] [facility] [address] [place] [address] Gail Haro NP [address] [facility] [address] [place] [address] Health Maintenance Due Date Last Done Comments Zoster Vaccines (1 of 2) 1985 RSV Immunization Adult Patients (1 - 1-dose 75+ series) 2010 Social Influencers of Health Screening 10/12/2022 COVID-19 Vaccine (2 - season) 2025 01/06/2022 Influenza Vaccine (#1) 2025 , 12/04/2021, 10/21/2018, Additional history exists Falls Risk Assessment 01/06/2026 01/06/2025 Medicare Annual Wellness Visit 01/06/2026 01/06/2025 Hypertension/CHF/CAD Annual BMP Blood Test 05/19/2026 05/19/2025, 01/12/2025, 06/23/2024, Additional history exists DTaP,Tdap,and Td Vaccines (3 - Td or Tdap) 06/03/2026 06/03/2016, 2006 Cholesterol Screening (Lipid Panel) 01/12/2030 01/12/2025, 12/18/2023 Pneumococcal Vaccine: 50+ Years Completed 03/17/2018, 08/15/2016 Depression Screening Completed 01/06/2025 HIB Vaccines Aged Out No longer eligi [...] age to complete this topic Meningococcal B Vaccine Aged Out No l onger eligible based on patient's age to complete this topic RSV Immunization Patients Under 20 months Aged Out No longer eligible based on patient's age to complete this topic Varicella Vaccines Aged Out No longer eligible based on patient's age to complete this topic Medical Devices Implanted Type Area Station Cashier Device Identifier Shelf Expiration Date Model / Serial / Lot Bsci-Crm [id number] Implanted:06/2018 (Quantity not on file) Cardiac Pacemaker [employer] MGMT [id number] / [id number] / Procedures Procedure Name Priority Date/Time Associated Diagnosis Comments CARDIAC DEVICE CHECK- REMOTE- MURJ Routine 06/02/2025 8:13 AM EDT CBC WITH AUTO DIFFERENTIAL Routine 05/19/2025 9:05 AM EDT Anemia, unspecified type Primary hypertension Other fatigue FERRITIN Routine 05/19/2025 9:05 AM EDT Anemia, unspecified type Primary hypertension Other fatigue IRON AND TIBC Routine 05/19/2025 9:05 AM EDT Anemia, unspecified type Primary hypertension Other fatigue BASIC METABOLIC PANEL Routine 05/19/2025 9:05 AM EDT Anemia, unspecified type Primary hypertension Other fatigue CBC AND DIFFERENTIAL Routine 05/19/2025 9:05 AM EDT Anemia, unspecified type Primary hypertension Other fatigue LIPID PANEL WITH REFLEX TO DIRECT LDL Routine 01/12/2025 10:05 AM EDT Primary hypertension Mixed hyperlipidemia Complete heart block (CMS/HCC V24, CMS/HCC V28) Anemia, unspecified type from Last 3 Months or Most Recently Relevant to Health Maintenance Results * Cardiac device check - Remote- MURJ (06/02/2025 8:13 AM EDT) Date Time Interrogation Session [id number] CV DEVICE CHECK Type Interrogation Session Remote Scheduled CV DEVICE CHECK Implantable Pulse Generator Station Cashier BSX CV DEVICE CHECK Implantable Pulse Generator Type IPG CV DEVICE CHECK Implantable Pulse Generator Model L111 CV DEVICE CHECK Implantable Pulse Generator Serial Number [id number] CV DEVICE CHECK Implantable Pulse Generator Implant Date 20171110 CV DEVICE CHECK Battery Remaining Percentage 15.00 CV DEVICE CHECK Battery Remaining Longevity 10.0 CV DEVICE CHECK Battery Status Middle of Service CV DEVICE CHECK Sukhdev Statistic RA Percent Paced 32.00 CV DEVICE CHECK Sukhdev Statistic RV Percent Paced 92.00 CV DEVICE CHECK Atrial Tachy Statistic AT/AF [place] Percent 0.00 CV DEVICE CHECK Lead Channel Sensing Intrinsic Amplitude 1.000 CV DEVICE CHECK Lead Channel Setting Sensing Sensitivity 0.25 CV DEVICE CHECK Lead Channel Impedance Value 624 CV DEVICE CHECK Lead Channel Pacing Threshold Amplitude 0.600 CV DEVICE CHECK Lead Channel Pacing Threshold Pulse Width 0.4 CV DEVICE CHECK Lead Channel RA Pacing Threshold Date 2025-05-30 CV DEVICE CHECK Lead Channel Setting Pacing Amplitude 2.000 CV DEVICE CHECK Lead Channel Setting Pacing Pulse Width 0.4 CV DEVICE CHECK Lead Channel Setting Sensing Sensitivity 1.50 CV DEVICE CHECK Lead Channel Impedance Value 700 CV DEVICE CHECK Lead Channel Pacing Threshold Amplitude 0.900 CV DEVICE CHECK Lead Channel Pacing Threshold Pulse Width 0.4 CV DEVICE CHECK Lead Channel RV Pacing Threshold Date 2025-05-30 CV DEVICE CHECK Lead Channel Setting Pacing [...] 1 CV DEVICE CHECK Date of Service 2025-06-11 CV DEVICE CHECK Anatomical Region Laterality Modality Device Interroga tion 06/01/2025 4:41 AM EDT Impressions 06/01/2025 4:15 PM EDT Normal Remote: No Events * Normal Device Function * Alerts or events: None * Battery: Battery is at 15%, 10 mos * Sensing, impedance and thresholds reviewed * Programmed parameters reviewed * Presenting rhythm reviewed * Heart Rate Histograms reviewed * No significant changes noted Narrative Procedure Note Darcy Dubois MD - 06/02/2025 IMPRESSION: Normal Remote: No Events * Normal Device Function * Alerts or events: None * Battery: Battery is at 15%, 10 mos * Sensing, impedance and thresholds reviewed * Programmed parameters reviewed * Presenting rhythm reviewed * Heart Rate Histograms reviewed * No significant changes noted us Darcy Dubois MD CV IMPLANTABLE CARDIAC DEV ICE PROCEDURES Final Result * (ABNORMAL) CBC auto differential (05/19/2025 9:05 AM EDT) [facility] WBC 6.6 4.8 - 10.8 K/mcL LAB HEMETOLOGY METHOD 05/19/2025 10:19 AM [facility] RBC 4.10(L) 4.50 - 5.50 M/mcL LAB HEMETOLOGY METHOD 05/19/2025 10:19 AM [facility] Hemoglobin 13.1(L) 13.5 - 17.5 g/dL LAB HEMETOLOGY METHOD 05/19/2025 10:19 AM [facility] Hematocrit 40.1(L) 42.0 - 54.0 % LAB HEMETOLOGY METHOD 05/19/2025 10:19 AM [facility] MCV 97.3 79.0 - 98.0 FL LAB HEMETOLOGY METHOD 05/19/2025 10:19 AM [facility] MCH 31.8 27.0 - 32.0 pcg LAB HEMETOLOGY METHOD 05/19/2025 10:19 AM [facility] MCHC 32.7 32.0 - 37.0 g/dL LAB HEMETOLOGY METHOD 05/19/2025 10:19 AM [facility] RDW 13.4 11.0 - 15.0 % LAB HEMETOLOGY METHOD 05/19/2025 10:19 AM [facility] Platelets 138 130 - 400 K/mcL LAB HEMETOLOGY METHOD 05/19/2025 10:19 AM [facility] MPV 12.0(H) 7.0 - 11.0 FL LAB HEMETOLOGY METHOD 05/19/2025 10:19 AM [facility] NRBC 0.0 <1.0 % LAB HEMETOLOGY METHOD 05/19/2025 10:19 AM [facility] NRBC Absolute 0.00 <0.10 K/mcL LAB HEMETOLOGY METHOD 05/19/2025 10:19 AM [facility] Neutrophils Relative 65.8 % LAB HEMETOLOGY METHOD 05/19/2025 10:19 AM [facility] Lymphocytes Relative 19.8 % LAB HEMETOLOGY METHOD 05/19/2025 10:19 AM [facility] Monocytes Relative 9.7 % LAB HEMETOLOGY METHOD 05/19/2025 10:19 AM [facility] Eosinophils Relative 3.8 % LAB HEMETOLOGY METHOD 05/19/2025 10:19 AM [facility] Basophils Relative 0.6 % LAB HEMETOLOGY METHOD 05/19/2025 10:19 AM [facility] Immature Granulocytes Relative 0.3 % LAB HEMETOLOGY METHOD 05/19/2025 10:19 AM [facility] Neutrophils Absolute 4.33 1.50 - 7.00 K/mcL LAB HEMETOLOGY METHOD 05/19/2025 10:19 AM [facility] Lymphocytes Absolute 1.30 1.00 - 5.00 K/mcL LAB HEMETOLOGY METHOD 05/19/2025 10:19 AM EDT [facility] Monocytes Absolute 0.64 0.20 - 1.00 K/mcL LAB HEMETOLOGY METHOD 05/19/2025 10:19 AM EDT [facility] Eosinophils Absolute 0.25 0.00 - 0.50 K/mcL LAB HEMETOLOGY METHOD 05/19/2025 10:19 AM EDT [facility] Basophils Absolute 0.04 0.00 - 0.20 K/mcL LAB HEMETOLOGY METHOD 05/19/2025 10:19 AM EDT [facility] Immature Granulocytes Absolute 0.02 0.00 - 0.03 K/mcL LAB HEMETOLOGY METHOD 05/19/2025 10:19 AM EDT [facility] Blood Venous blood specimen / Unknown Venipuncture / Unknown 05/19/2025 9:05 AM EDT 05/19/2025 9:05 AM EDT us Cherri Wise MD LAB BLOOD ORDERABLES Final Res ult [facility] [address] [place] [address], * Iron and TIBC (05/19/2025 9:05 AM EDT) Iron 97 50 - 160 mcg/dL LAB CHEMISTRY METHOD 05/19/2025 3:44 PM EDT [facility] TIBC 285 250 - 450 mcg/dL LAB CHEMISTRY METHOD 05/19/2025 3:44 PM EDT [facility] Iron Saturation 34 20 - 50 % LAB CHEMISTRY METHOD 05/19/2025 3:44 PM EDT [facility] Blood Venous blood specimen / Unknown Venipuncture / Unknown 05/19/2025 9:05 AM EDT 05/19/2025 9:05 AM EDT us Cherri Wise MD LAB BLOOD ORDERABLES Final Res ult Performing Organization Address [facility]/ZIP Co de Phone Number [facility] [address] [place] [address], [place] [phone] * Ferritin (05/19/2025 9:05 AM EDT) Pathologist [facility] Ferritin 186 26 - 388 ng/mL LAB CHEMISTRY METHOD 05/19/2025 3:44 PM EDT [facility] Blood Venous blood specimen / Unknown Venipuncture / Unknown 05/19/2025 9:05 AM EDT 05/19/2025 9:05 AM EDT Cherri Wise MD LAB BLOOD ORDERABLES Final Res ult Performing Organization Address [facility]/ZIP Co de Phone Number [facility] [address] [place] [address], [place] [phone] * (ABNORMAL) Basic metabolic panel (05/19/2025 9:05 AM EDT) [facility] Sodium 139 133 - 145 mmol/L LAB CHEMISTRY METHOD 05/19/2025 3:44 PM [facility] Potassium 4.2 3.5 - 5.5 mmol/L LAB CHEMISTRY METHOD 05/19/2025 3:44 PM [facility] Chloride 104 96 - 110 mmol/L LAB CHEMISTRY METHOD 05/19/2025 3:44 PM T [facility] CO2 29 21 - 32 mmol/L LAB CHEMISTRY METHOD 05/19/2025 3:44 PM [facility] Anion Gap 6 3 - 11 LAB CHEMISTRY METHOD 05/19/2025 3:44 PM [facility] Glucose 112(H) 70 - 100 mg/dL LAB CHEMISTRY METHOD 05/19/2025 3:44 PM [facility] BUN 18 5 - 25 mg/dL LAB CHEMISTRY METHOD 05/19/2025 3:44 PM EDT [facility] Creatinine 0.95 0.70 - 1.30 mg/dL LAB CHEMISTRY METHOD 05/19/2025 3:44 PM EDT [facility] eGFR 77 >=60 mL/min/1. 73m2 LAB CHEMISTRY METHOD 05/19/2025 3:44 PM EDT [facility] Comment:Calculation based on the Chronic Kidney Disease Epidemiology Collaboration (CKD-EPI) equation refit without adjustment for race. BUN/Creatinine Ratio 18.9 LAB CHEMISTRY METHOD 05/19/2025 3:44 PM EDT [facility] Calcium 9.3 8.5 - 10.5 mg/dL LAB CHEMISTRY METHOD 05/19/2025 3:44 PM T [facility] Blood Venous blood specimen / Unknown Venipuncture / Unknown 05/19/2025 9:05 AM EDT 05/19/2025 9:05 AM EDT us Cherri Wise MD LAB BLOOD ORDERABLES Final Res ult [facility] [address] [place] [address], * Lipid panel with reflex to direct LDL (01/12/2025 10:05 AM EDT) Cholesterol 118 0 - 200 mg/dL LAB CHEMISTRY METHOD 01/12/2025 12:50 PM EDT [facility] Triglycerides 109 0 - 150 mg/dL LAB CHEMISTRY METHOD 01/12/2025 12:50 PM [facility] HDL 54 >=40 mg/dL LAB CHEMISTRY METHOD 01/12/2025 12:50 PM EDT [facility] LDL Calculated 42 0 - 100 mg/dL LAB CHEMISTRY METHOD 01/12/2025 12:50 PM [facility] VLDL Cholesterol Papa 21.8 mg/dL LAB CHEMISTRY METHOD 01/12/2025 12:50 PM EDT [facility] Non HDL Chol. (LDL+VLDL) 64 <145 mg/dL LAB CHEMISTRY METHOD 01/12/2025 12:50 PM EDT [facility] Chol/HDL Ratio 2.2 0.0 - 4.4 LAB CHEMISTRY METHOD 01/12/2025 12:50 PM EDT [facility] Blood Venous blood specimen / Unknown Venipuncture / Unknown 01/12/2025 10:05 AM EDT 01/12/2025 10:05 AM EDT us Cherri Wise MD LAB BLOOD ORDERABLES Final Res ult [facility] [address] [place] [address], [place] [phone] from Last 3 Months or Most Recently Relevant to Health Maintenance Insurance [employer] Advance Directives Documents on File Type Date Recorded Patient Utility Clerk Expl anation Health Care Decision (hx) 07/25/2015 [...] (hx) 07/11/2015 AD TUTTLE DIRECTIVE Care Teams Filler Block Inserter Remover Relationship Specialty Start Date End Date Cherri Wise MD [address] [place] [phone] PCP - General Internal Medicine 11/26/24
== END 2025-08-17 10:26 | disposition home or self-care (01) ==
LOC: HO.HPS 09:44
PROVIDERS: PCP Internal Medicine; Visit Provider Hospitalist
DX: J96.11 Chronic respiratory failure with hypoxia (principal); J44.1 Chronic obstructive pulmonary disease with (acute) exacerbation; J31.0 Chronic rhinitis; R09.89 Other specified symptoms and signs involving the circulatory and respiratory systems
CPT/HCPCS: 99214; G2211

== ENCOUNTER → 2025-08-17 10:37 | Outpatient (BNV) | payer MEDICARE, SELFPAY | PROVIDERS: PCP Internal Medicine; Visit Provider Radiology Diagnostic Radiology | DX: J84.89 Other specified interstitial pulmonary diseases (principal) | CPT/HCPCS: 71046 ==